=== PATIENT | male | born 1930 | race Caucasian/White ===

== ENCOUNTER 2017-04-16 12:31 | Outpatient (CLI) | payer MEDICARE | END 2017-04-16 12:32 | disposition critical access hospital (66) | LOC: EMS 12:31 | PROVIDERS: ATTEND Surgery | DX: M25.511 Pain in right shoulder (principal); W18.39XA Other fall on same level, initial encounter; Y92.511 Restaurant or cafe as the place of occurrence of the external cause | CPT/HCPCS: A0425; A0429 ==

== ENCOUNTER 2017-04-16 12:52 | Emergency (ER) | payer MEDICARE, OTHER ==
--- NOTE | 2017-04-16 13:27 | ED Physician Documentation ---
PD HPI UPPER EXT INJURY - Stated complaint Stated Complaint: FALL R SHOULDER PX - Chief complaint Chief Complaint: Ext Problem - History obtained from History obtained from: Patient - History of Present Illness Location: Right, Shoulder Type of injury: Fall (walking with cane [place] and the cane slipped, and he fell to right side onto shoulder. Pain at shoulder with any attempted ROM. Denies injury to head, neck, chest.) Where injury occurred: Street Timing - onset: Today Timing - details: Abrupt onset, Still present Improved by: Rest Worsened by: Moving, Palpating Associated symptoms: No: Weakness, Numbness, Swelling Contributing factors: No: Anticoagulated Similar symptoms before: Has not had sx before Recently seen: Not recently seen Review of Systems Constitutional: denies: Fever, Chills Nose: denies: Rhinorrhea / runny nose, Congestion Throat: denies: Sore throat Cardiac: denies: Chest pain / pressure, Palpitations Respiratory: denies: Dyspnea, Cough, Wheezing GI: denies: Nausea, Vomiting Skin: denies: Abrasion (s), Laceration (s) Neurologic: denies: Generalized weakness, Focal weakness, Numbness, Altered mental status, Headache, Head injury PD PAST MEDICAL HISTORY - Past Medical History Cardiovascular: High cholesterol Endocrine/Autoimmune: HyPOthyroidism Psych: Depression - Past Surgical History General: Bowel surgery Cardiovascular: Pacemaker - Present Medications Home Medications: Ambulatory Orders Medication Instructions Recorded Confirmed Levothyroxine Sodium [Synthroid] 25 mcg PO 04/16/17 Simvastatin 5 mg PO 04/16/17 Tramadol HCl 50 mg PO Q6H PRN #20 tablet 04/16/17 - Allergies Allergies/Adverse Reactions: Allergies Allergy/AdvReac Type Severity Reaction Status Date / Time No Known Drug Allergies Allergy Verified 04/16/17 12:57 - Social History Does the pt smoke?: No Smoking Status: Never smoker Does the pt drink ETOH?: No Does the pt have substance abuse?: No PD ED PE NORMAL - Vitals Vital signs reviewed: Yes - General General: Alert and oriented X 3, Well developed/nourished, Other (shoulder pain and exam c/w dislocation. ) - HEENT HEENT: Atraumatic, Pharynx benign, Other (dentures present upper and lower, in place. He can open mouth widely. ) - Neck Neck: Supple, no meningeal sign, No bony TTP, No adenopathy - Cardiac Cardiac: RRR, No murmur - Respiratory Respiratory: Clear bilaterally - Abdomen Abdomen: Soft, Non tender - Back Back: No CVA TTP, No spinal TTP - Derm Derm: Normal color, Warm and dry - Extremities Extremities: Other (right shoulder with findings c/w dislocation. good pulses and cap refill in wrist and fingers. ) - Neuro Neuro: No motor deficit, No sensory deficit Eye Opening: Spontaneous Motor: Obeys Commands Verbal: Oriented GCS Score: 15 - Psych Psych: Normal mood, Normal affect Results - Vitals Vitals: Oxygen O2 Source Nasal cannula - Rads (name of study) right shoulder Radiology: Prelim report reviewed (dislocation and small flakes bone c/w impaction fx.) post reduction Radiology: Prelim report reviewed (improved location) Procedures - Reduction Body part reduced: Right, Shoulder Fracture or dislocation: Dislocation Anesthesia: Conscious sedation, Dilaudid, Propofol Shoulder reduction technique: [place] / ext rotation Reduction aftercare: NV intact, Xray confirms reduction, Alignment improved, Sling, Patient tolerated well PD MEDICAL DECISION MAKING - ED course Complexity details: reviewed results, re-evaluated patient (improved after reduction. Awake and fully alert at time of discharge. ), considered differential, d/w patient Departure - Departure Disposition: 01 Home, Self Care Clinical Impression: Fall from slip, trip, or stumble Qualifiers: Encounter type: initial encounter Qualified Code(s): W01.0XXA - Fall on same level from slipping, tripping and stumbling without subsequent striking against object, initial encounter Anterior shoulder dislocation Qualifiers: Encounter type: initial encounter Laterality: right Qualified Code(s): S43.014A - Anterior dislocation of right humerus, initial encounter Glenoid fracture of shoulder Qualifiers: Encounter type: initial encounter Fracture type: closed Laterality: right Qualified Code(s): S42.141A - Displaced fracture of glenoid cavity of scapula, right shoulder, initial encounter for closed fracture Condition: Stable Record reviewed to determine appropriate education?: Yes Instructions: ED Dislocation Shoulder Redu, ED Fx Shoulder Follow-Up: Polo Suarez MD [Primary Care Provider] - Hernán Guzman MD [Provider Admit Priv/Credential] - Prescriptions: Tramadol HCl 50 mg PO Q6H PRN #20 tablet PRN Reason: Pain Comments: Your shoulder was dislocated and it did look like some small tiny chip fractures off the corner of the shoulder top. This should heal okay with gentle range of motion. However there would be some torn ligaments for to dislocate and these need to heal up as well. Follow-up with orthopedics in about a week for recheck and see how the shoulder is healing. Treated with a sling and gentle range of motion. No overhead reaching, push pull, lifting with that arm until advised otherwise. This will likely take about 4 weeks to heal with limited lifting and use. Tylenol or ibuprofen if needed for pains. Add tramadol if needed for pain. Discharge Date/Time: 04/16/17 17:33
[2017-04-16] MEDS ORDERED: KETOROLAC 60 MG/2 ML VIAL IVP STA ×2 (13:30→15:34)
[2017-04-16] MEDS ORDERED: HYDROmorphone 1 MG/ML SYRINGE IVP STA ×3 (13:30→15:34)
--- NOTE | 2017-04-16 15:30 | XRAY Report ---
EXAM: RIGHT SHOULDER RADIOGRAPHY EXAM DATE: 04/16/2017 03:14 PM. CLINICAL HISTORY: Fall . COMPARISON: None. TECHNIQUE: 3 views. FINDINGS: The humeral head is dislocated anteriorly and inferiorly in relation to the glenoid. Fracture fragmen ts are noted about the glenoid. The AC joint appears intact. IMPRESSION: Glenohumeral dislocation. Fracture fragments likely represent bony [place]. MILLER Referring Provider Line: [phone] SITE ID: [id number]
[2017-04-16] MEDS ORDERED: PROPOFOL 200 MG/20 ML VIAL IVP STA (15:34)
[2017-04-16] MEDS ORDERED: NALOXONE 0.4 MG/ML VIAL IVP STA (16:24)
--- NOTE | 2017-04-16 17:10 | XRAY Preliminary Report ---
Exam: XR SHOULDER 2 VIEW RT IMPRESSION: Relocated glenohumeral joint. Favor calcific rotator cuff tendinopathy, although small fracture fragments are difficult to entirely exclude. Mild AC joint arthrosis. Large right pleural effusion more conspicuous on the present exam. [facility] SITE ID: [id number]
--- NOTE | 2017-04-16 17:11 | XRAY Report ---
EXAM: RIGHT SHOULDER RADIOGRAPHY EXAM DATE: 04/16/2017 04:56 PM. CLINICAL HISTORY: Post reduction . COMPARISON: None. TECHNIQUE: 3 views. FINDINGS: Incorrect laterality marking. I have confirmed that it is the right shoulder not the left shoulder. Bones: No fracture or bone lesion. Calcifications are better evaluated in terms of location on this study, and are favored to represent calcific rotator cuff tendinopathy rather than fracture fragments , although there could be both. Joints: There are mild degenerative changes of the acromioclavicular joint. Soft tissues: There is a large right pleural effusion more conspicuous on this exam. IMPRESSION: Relocated glenohumeral joint. Favor calcific rotator cuff tendinopathy, although small fracture fragments are difficult to entirely exclude. Mild AC joint arthrosis. Large right pleural effusion more conspicuous on the present exam. [facility] Referring Provider Line: [phone] SITE ID: [id number]
[2017-04-16 17:21] VITALS: BP 118/95
== END 2017-04-16 17:33 | disposition home or self-care (01) ==
LOC: ED 12:52
DX: S43.014A Anterior dislocation of right humerus, initial encounter (principal); S42.141A Displaced fracture of glenoid cavity of scapula, right shoulder, initial encounter for closed fracture; W01.0XXA Fall on same level from slipping, tripping and stumbling without subsequent striking against object, initial encounter; Y93.01 Activity, walking, marching and hiking; E03.9 Hypothyroidism, unspecified; E78.00 Pure hypercholesterolemia, unspecified
CPT/HCPCS: 23650; 73030; 96374; 96375; 96376; 99284; J1170

== ENCOUNTER 2017-04-20 17:37 | Emergency (ER) | payer MEDICARE ==
--- NOTE | 2017-04-20 18:02 | ED Physician Documentation ---
PD HPI UPPER EXT INJURY - Stated complaint Stated Complaint: SWOLLEN ARM - Chief complaint Chief Complaint: Ext Problem - History obtained from History obtained from: Patient, Family - History of Present Illness Location: Other (He had a mechanical fall about 4 days ago. Seen here with a dislocated shoulder that was subsequently relocated. Over the subsequent days developed massive edema of the right upper extremity and somewhat increased pain in the shoulder. No shortness of breath.) Review of Systems Constitutional: denies: Fever, Chills Respiratory: denies: Dyspnea, Cough GI: denies: Abdominal Pain PD PAST MEDICAL HISTORY - Past Medical History Past Medical History: Yes Cardiovascular: High cholesterol Endocrine/Autoimmune: HyPOthyroidism Psych: Depression - Past Surgical History Past Surgical History: Yes General: Bowel surgery Cardiovascular: Pacemaker - Present Medications Home Medications: Ambulatory Orders Medication Instructions Recorded Confirmed Levothyroxine Sodium [Synthroid] 25 mcg PO 04/16/17 Simvastatin 5 mg PO 04/16/17 Tramadol HCl 50 mg PO Q6H PRN #20 tablet 04/16/17 Aspirin [Aspirin EC] 81 mg PO DAILY 04/20/17 - Allergies Allergies/Adverse Reactions: Allergies Allergy/AdvReac Type Severity Reaction Status Date / Time No Known Drug Allergies Allergy Verified 04/20/17 17:52 - Social History Does the pt smoke?: No Smoking Status: Never smoker Does the pt drink ETOH?: No Does the pt have substance abuse?: No - Immunizations Immunizations are current?: Yes PD ED PE NORMAL - Vitals Vital signs reviewed: Yes - General General: Alert and oriented X 3, No acute distress - HEENT HEENT: EOMI - Neck Neck: Supple, no meningeal sign, No bony TTP - Cardiac Cardiac: RRR, No murmur - Respiratory Respiratory: No respiratory distress, Other (Nonlabored, diminished at B bases) - Abdomen Abdomen: Non tender - Extremities Extremities: Other (Right shoulder is tender, held in a neutral position but basically nonmobile. He has massive ecchymosis and edema of the right upper extremity and also ecchymosis of the right upper lateral chest wall, but the remainder of the upper extremity is nontender with good range of motion and the ribs are nontender. ) - Neuro Neuro: Alert and oriented X 3, Normal speech - Psych Psych: Normal mood, Normal affect Results - Vitals Vitals: Vital Signs - 24 hr 04/20/17 04/20/17 17:50 22:55 Temperature 36.6 C 36.2 C L Heart Rate 84 125 H Respiratory 16 20 Rate Blood Pressure 130/61 132/64 H O2 Saturation 95 95 Oxygen O2 Source Room air - Labs Labs: Laboratory Tests 04/20/17 04/20/17 04/20/17 20:12 20:12 20:12 WBC 5.6 RBC 3.39 L Hgb 8.4 L Hct 28.2 L MCV 83.2 MCH 24.7 L MCHC 29.6 L RDW 18.1 H Plt Count 166 MPV 7.3 L Neut # 3.4 Lymph # 1.5 [place] # 0.6 Eos # 0.1 Baso # 0.0 Absolute Nucleated RBC 0.01 Nucleated RBC % 0.1 PT 12.6 INR 1.1 Sodium 134 L Potassium 3.9 Chloride 104 Carbon Dioxide 22 Anion Gap 8.0 BUN 37 H Creatinine 1.6 H Estimated GFR (MDRD) 41 L Glucose 98 Calcium 9.4 Total Bilirubin 0.8 AST 40 ALT 19 Alkaline Phosphatase 54 Total Protein 7.4 Albumin 3.2 Globulin 4.2 Albumin/Globulin Ratio 0.8 L Lipase 65 H - Rads (name of study) R shoulder XR Radiology: EMP read contemporaneously (Periarticular ossifications around the proximal right humerus, could be avulsion fragments versus rotator cuff tendinopathy or capsular calcifications.) 2v chest XR Radiology: EMP read contemporaneously (Bilateral pleural effusions with right middle lobe and bilateral lower lobe consolidation, could be atelectasis or pneumonia.) RUE Sono Radiology: Prelim report reviewed (no DVT) CT Chest Radiology: Discussed with rads (Bilateral pleural effusions without acute rib fracture. The density of it does not look like acute blood but he does look like he has an axillary hematoma on this study.) PD MEDICAL DECISION MAKING - ED course ED course: 87-year-old gentleman status post mechanical fall a few days ago with dislocation of the shoulder now massive edema of the arm. DVT is unlikely, but ultrasound done and negative. X-ray basically unchanged, noted the x-ray read it from the other day mentioned a pleural effusion and a formal chest x-ray was done showing bilateral pleural effusions a pretty significant size. Patient really has no pulmonary complaints, no cough, no shortness of breath. The differential diagnosis for the pleural effusions could be hemothorax from the trauma versus a medical cause and CT was done to help piece this together. The CT was as shown with an axillary hematoma and bilateral probably medical pleural effusions, as opposed to traumatic. Discussed case with Ana Clarke, as he will be seeing Polo Suarez in follow-up tomorrow. Departure - Departure Disposition: 01 Home, Self Care Clinical Impression: Pleural effusion Fall from slip, trip, or stumble Qualifiers: Encounter type: initial encounter Qualified Code(s): W01.0XXA - Fall on same level from slipping, tripping and stumbling without subsequent striking against object, initial encounter Glenoid fracture of shoulder Qualifiers: Encounter type: initial encounter Fracture type: closed Axillary hematoma Qualifiers: Encounter type: sequela Laterality: right Qualified Code(s): S40.021S - Contusion of right upper arm, sequela Anemia Qualifiers: Anemia type: other cause Other causes of anemia: acute posthemorrhagic Qualified Code(s): D62 - Acute posthemorrhagic anemia Condition: Good Record reviewed to determine appropriate education?: Yes Comments: Follow-up with your new physician tomorrow. I suspect he will want to order repeat labs to check your blood counts and other tests to figure out why you have fluid on your lungs. Return if worse. Discharge Date/Time: 04/20/17 23:12
--- NOTE | 2017-04-20 19:20 | XRAY Report ---
EXAM: CHEST RADIOGRAPHY EXAM DATE: 04/20/2017 07:07 PM. CLINICAL HISTORY: Pleural effusion on shoulder x-ray. COMPARISON: None. TECHNIQUE: 2 views. FINDINGS: Lungs/Pleura: There is airspace opacity in the right middle lobe and right lower lobe. There is conso lidation along the inferior aspect of the right minor fissure. There is blunting of the left costophr enic angle. Mediastinum: Cardiac silhouette is obscured. There is a pacemaker with leads overlying right atrium a nd right ventricle. Other: None. IMPRESSION: 1. Bilateral pleural effusions with right middle lobe and bilateral lower lobe consolidation. There i s a component of atelectasis, but pneumonia and/or basilar edema are also in differential diagnosis. [facility] Referring Provider Line: [phone] SITE ID: [id number]
--- NOTE | 2017-04-20 19:20 | XRAY Preliminary Report ---
Exam: XR CHEST 2 VIEW X-RAY IMPRESSION: 1. Bilateral pleural effusions with right middle lobe and bilateral lower lobe consolidation. There i s a component of atelectasis, but pneumonia and/or basilar edema are also in differential diagnosis. [facility] SITE ID: [id number]
--- NOTE | 2017-04-20 19:25 | XRAY Report ---
EXAM: RIGHT SHOULDER RADIOGRAPHY EXAM DATE: 04/20/2017 07:08 PM. CLINICAL HISTORY: Worse shoulder pain. COMPARISON: 04/16/2017. TECHNIQUE: 3 views. FINDINGS: Bones: Negative for an new acute fracture. Joints: No subluxation or dislocation. Soft tissues: There are curvilinear calcifications in the subacromial space. These are located more m edially than on previous examination. There is a punctate calcification lateral to the humeral metaph ysis. IMPRESSION: 1. Periarticular ossifications around proximal right humerus. Differential including calcific tendino vashti of rotator cuff versus capsular calcifications and avulsion fracture fragments from the greater tuberosity. [facility] Referring Provider Line: [phone] SITE ID: [id number]
--- NOTE | 2017-04-20 19:25 | XRAY Preliminary Report ---
Exam: XR SHOULDER 3 VIEW RT IMPRESSION: 1. Periarticular ossifications around proximal right humerus. Differential including calcific tendino vashti of rotator cuff versus capsular calcifications and avulsion fracture fragments from the greater tuberosity. [facility] SITE ID: [id number]
--- NOTE | 2017-04-20 20:14 | Ultrasound Preliminary Report ---
Exam: US DUPLEX EXT VEINS RIGHT IMPRESSION: No evidence for deep vein thrombosis. [facility] SITE ID: [id number]
--- NOTE | 2017-04-20 20:15 | Ultrasound Report ---
EXAM: RIGHT UPPER EXTREMITY VENOUS ULTRASOUND EXAM DATE: 04/20/2017 08:00 PM. CLINICAL HISTORY: RUE swelling. COMPARISON: None. TECHNIQUE: Real-time sonographic vascular imaging was performed by the chemical processor through the upper extremity utilizing both color-flow and Doppler spectral analysis. Multiple marketing sales representative static ke ges were saved for review. FINDINGS: Internal Jugular Vein (IJV): Normal. Subclavian Vein (SCV): Normal. Axillary Vein : Normal. Cephalic Vein (superficial vein): Normal. Basilic Vein (superficial vein): Normal. Brachial Vein: Normal. Contralateral Side: Subclavian Vein: Normal. Other: None. IMPRESSION: No evidence for deep vein thrombosis. [facility] Referring Provider Line: [phone] SITE ID: [id number]
[2017-04-20] MEDS ORDERED: IOPAMIDOL-300 100 ML VIAL ONE (20:16)
[2017-04-20 20:20] LABS: BASOPHILS % (AUTO) 0.6 %; EOSINOPHILS # (AUTO) 0.1 10^3/uL (0.0-0.7); EOSINOPHILS % (AUTO) 2.1 %; HGB - HEMOGLOBIN 8.4 g/dL (14.0-18.0); LYMPHOCYTES # (AUTO) 1.5 10^3/uL (1.5-3.5); LYMPHOCYTES % (AUTO) 26.1 %; MEAN CORPUSCULAR HEMOGLOBIN 24.7 pg (27.0-31.0); MEAN CORPUSCULAR HGB CONC 29.6 g/dL (32.0-36.0); MEAN CORPUSCULAR VOLUME 83.2 fL (80.0-94.0); MEAN PLATELET VOLUME 7.3 fL (7.4-11.4); MONOCYTES # (AUTO) 0.6 10^3/uL (0.0-1.0); MONOCYTES % (AUTO) 10.4 %; NEUTROPHILS # (AUTO) 3.4 10^3/uL (1.5-6.6); NEUTROPHILS % (AUTO) 60.8 %; PLT - PLATELET COUNT 166 10^3/uL (130-450); RED BLOOD COUNT 3.39 10^6/uL (4.70-6.10); RED CELL DISTRIBUTION WIDTH 18.1 % (12.0-15.0); WHITE BLOOD COUNT 5.6 x10^3/uL (4.8-10.8)
[2017-04-20 20:28] LABS: ALBUMIN 3.2 g/dL (3.2-5.5); ALBUMIN/GLOBULIN RATIO 0.8 (1.0-2.2); BILIRUBIN,TOTAL 0.8 mg/dL (0.2-1.0); CALCIUM 9.4 mg/dL (8.5-10.3); CREATININE 1.6 mg/dL (0.6-1.2); TOTAL PROTEIN 7.4 g/dL (6.7-8.2)
[2017-04-20 20:36] LABS: INR 1.1 (0.8-1.2); PT - PROTHROMBIN TIME 12.6 secs (9.9-12.6)
--- NOTE | 2017-04-20 22:51 | CT Report ---
EXAM: CT CHEST EXAM DATE: 04/20/2017 09:50 PM. CLINICAL HISTORY: Pleural effusion, possible rib fracture COMPARISONS: None. TECHNIQUE: Routine helical CT imaging was performed through the chest. IV contrast: None. Reconstruct ions: Coronal and sagittal. In accordance with CT protocol optimization, one or more of the following dose reduction techniques w ere utilized for this exam: automated exposure control, adjustment of mA and/or KV based on patient s ize, or use of iterative reconstructive technique. FINDINGS: Moderate right and small left pleural effusions with Hounsfield units of 10 not consistent with hemot horax. Moderate bilateral lower lobe lung consolidations right greater than left, suspect passive ate lectasis. Pneumonia not excluded. Small amount of loculated pleural effusion seen in the right major fissure and anteriorly at the right base. Breathing motion artifact limited. Mediastinum: Moderate atherosclerotic calcification of the thoracic aorta. No aneurysm. Cardiomegaly. Coronary artery calcification. Pacemaker. Subcarinal lymphadenopathy measuring 1.3 cm Upper abdomen: Status post cholecystectomy. There appear to be bilateral proteinaceous renal cysts. L eft upper pole mass with small calcifications, could be a complex renal cysts but not fully character ized. Another low-density mass at the posterior right kidney not fully evaluated, could be a renal cy st with a septation, measures 1.6 cm. Renal ultrasound could be obtained to further evaluate. Solid r enal mass not excluded. There appear to be multiple hematomas with contusions at the right axilla, largest suspected hematoma measuring 3.7 x 2.5 cm. Patient had a right shoulder dislocation on Monday. No dislocation seen. Bon e fragments are seen superior to the humeral head, concerning for fracture fragments from the prior d islocation. See the shoulder x-ray report from the same date. Right-sided abdominal wall anasarca and contusions here are not excluded. No acute rib fractures are seen. IMPRESSION: 1. There appear to be multiple hematomas with contusions at the right axilla, largest suspected hemat vandana measuring 3.7 x 2.5 cm. Patient had a right shoulder dislocation on Monday. No dislocation seen. Bone fragments are seen superior to the humeral head, concerning for fracture fragments from the prio r dislocation. See the shoulder x-ray report from the same date. 2. Moderate right and small left pleural effusions with Hounsfield units of 10 not consistent with he mothorax. Moderate bilateral lower lobe lung consolidations right greater than left, suspect passive atelectasis. Pneumonia not excluded. Small amount of loculated pleural effusion seen in the right [place] or fissure and anteriorly at the right base. 3. Subcarinal lymphadenopathy, could be reactive but metastasis not excluded. Follow-up recommended. 4. Routine renal ultrasound recommended for the renal findings. See above. 5. Otherwise, as above. No acute rib fractures are seen. [facility] The above findings were discussed with Dr. Snowden by Dr. Marielle Kong at 22:38 hrs on 04/20/17. Referring Provider Line: [phone] SITE ID: [id number]
[2017-04-20 22:57] VITALS: BP 132/64
== END 2017-04-20 23:12 | disposition home or self-care (01) ==
LOC: ED 17:37
DX: S42.141A Displaced fracture of glenoid cavity of scapula, right shoulder, initial encounter for closed fracture (principal); S40.021S Contusion of right upper arm, sequela; W18.39XA Other fall on same level, initial encounter; J90 Pleural effusion, not elsewhere classified; D62 Acute posthemorrhagic anemia; E78.00 Pure hypercholesterolemia, unspecified; E03.9 Hypothyroidism, unspecified; Z79.82 Long term (current) use of aspirin
CPT/HCPCS: 36415; 71046; 71250; 80053; 83690; 85025; 85610; 99283; 99284

== ENCOUNTER 2017-04-21 15:25 | Outpatient (CLI) | payer MEDICARE | END 2017-04-21 15:26 | disposition home or self-care (01) | LOC: LAB.F 15:25 | PROVIDERS: ATTEND Family Medicine | DX: D64.9 Anemia, unspecified (principal); I10 Essential (primary) hypertension; M10.9 Gout, unspecified; E03.9 Hypothyroidism, unspecified; E78.5 Hyperlipidemia, unspecified; J91.8 Pleural effusion in other conditions classified elsewhere | CPT/HCPCS: 36415; 82607; 82728; 82746; 85025; 85044 ==

== ENCOUNTER 2017-04-23 08:00 | Outpatient (CLI) | payer MEDICARE ==
[2017-04-23 13:59] LABS: BASOPHILS % (AUTO) 0.8 %; EOSINOPHILS # (AUTO) 0.1 10^3/uL (0.0-0.7); EOSINOPHILS % (AUTO) 2.3 %; HGB - HEMOGLOBIN 8.1 g/dL (14.0-18.0); LYMPHOCYTES # (AUTO) 1.4 10^3/uL (1.5-3.5); LYMPHOCYTES % (AUTO) 26.4 %; MEAN CORPUSCULAR HEMOGLOBIN 25.7 pg (27.0-31.0); MEAN CORPUSCULAR HGB CONC 30.8 g/dL (32.0-36.0); MEAN CORPUSCULAR VOLUME 83.5 fL (80.0-94.0); MEAN PLATELET VOLUME 7.1 fL (7.4-11.4); MEAN RETIC VALUE 121.4; MONOCYTES # (AUTO) 0.7 10^3/uL (0.0-1.0); MONOCYTES % (AUTO) 12.6 %; NEUTROPHILS % (AUTO) 57.9 %; PLT - PLATELET COUNT 159 10^3/uL (130-450); RED BLOOD COUNT 3.13 10^6/uL (4.70-6.10); RED CELL DISTRIBUTION WIDTH 18.2 % (12.0-15.0); WHITE BLOOD COUNT 5.3 x10^3/uL (4.8-10.8)
[2017-04-23 14:33] LABS: FERRITIN 38.6 ng/mL (23.9-336.2)
[2017-04-23 15:25] LABS: FOLATE > 49.60 ng/mL (5.90 - >24.8)
== END 2017-04-23 08:01 | disposition home or self-care (01) ==
LOC: LAB.R 08:00
PROVIDERS: ATTEND Family Medicine
DX: D64.9 Anemia, unspecified (principal); I10 Essential (primary) hypertension; M10.9 Gout, unspecified; E03.9 Hypothyroidism, unspecified; E78.5 Hyperlipidemia, unspecified; J91.8 Pleural effusion in other conditions classified elsewhere
CPT/HCPCS: 36415; 82607; 82728; 82746; 85025; 85044

== ENCOUNTER 2017-04-23 13:40 | Outpatient (CLI) | payer MEDICARE | END 2017-04-23 13:41 | disposition home or self-care (01) | LOC: DI 13:40 | PROVIDERS: ATTEND Family Medicine | DX: J90 Pleural effusion, not elsewhere classified (principal); D64.9 Anemia, unspecified; I10 Essential (primary) hypertension; M10.9 Gout, unspecified; E03.9 Hypothyroidism, unspecified; E78.5 Hyperlipidemia, unspecified; I08.1 Rheumatic disorders of both mitral and tricuspid valves | CPT/HCPCS: 36415; 82607; 82728; 82746; 85025; 85044; 93306 ==

== ENCOUNTER 2017-05-03 13:36 | Outpatient (CLI) | payer MEDICARE ==
[2017-05-03 13:52] LABS: BASOPHILS # (AUTO) 0.1 10^3/uL (0.0-0.1); EOSINOPHILS # (AUTO) 0.1 10^3/uL (0.0-0.7); EOSINOPHILS % (AUTO) 1.9 %; HGB - HEMOGLOBIN 8.2 g/dL (14.0-18.0); LYMPHOCYTES # (AUTO) 1.4 10^3/uL (1.5-3.5); LYMPHOCYTES % (AUTO) 27.2 %; MEAN CORPUSCULAR HEMOGLOBIN 25.2 pg (27.0-31.0); MEAN CORPUSCULAR HGB CONC 30.3 g/dL (32.0-36.0); MEAN CORPUSCULAR VOLUME 83.2 fL (80.0-94.0); MEAN PLATELET VOLUME 7.1 fL (7.4-11.4); MONOCYTES # (AUTO) 0.7 10^3/uL (0.0-1.0); MONOCYTES % (AUTO) 13.4 %; NEUTROPHILS # (AUTO) 2.9 10^3/uL (1.5-6.6); NEUTROPHILS % (AUTO) 56.5 %; PLT - PLATELET COUNT 165 10^3/uL (130-450); RED BLOOD COUNT 3.24 10^6/uL (4.70-6.10); RED CELL DISTRIBUTION WIDTH 19.1 % (12.0-15.0); WHITE BLOOD COUNT 5.1 x10^3/uL (4.8-10.8)
== END 2017-05-03 13:37 | disposition home or self-care (01) ==
LOC: LAB 13:36
PROVIDERS: ATTEND Family Medicine
DX: D64.9 Anemia, unspecified (principal); E03.9 Hypothyroidism, unspecified
CPT/HCPCS: 36415; 84443; 85025

== ENCOUNTER 2017-05-25 13:04 | Outpatient (CLI) | payer OTHER ==
--- NOTE | 2017-05-25 16:07 | XRAY Report ---
TWO VIEW CHEST: 05/25/2017 CLINICAL INDICATION: Pleural effusion. COMPARISON: 04/20/2017, CT 04/20/2017. FINDINGS: Frontal and lateral views of the chest demonstrate stable bilateral effusions and basilar airspace disease. Left subclavian pacemaker is stable. There has been no significant interval change. IMPRESSION: STABLE BILATERAL EFFUSIONS AND BASILAR AIRSPACE DISEASE. TD: 05/25/2017 16:06
== END 2017-05-25 13:05 | disposition home or self-care (01) ==
LOC: DI 13:04
PROVIDERS: ATTEND Family Medicine
DX: J90 Pleural effusion, not elsewhere classified (principal); J98.4 Other disorders of lung
CPT/HCPCS: 71046

== ENCOUNTER 2017-06-05 15:12 | Inpatient (IN) | payer MEDICARE, OTHER ==
--- NOTE | 2017-06-05 16:09 | XRAY Report ---
EXAM: CHEST RADIOGRAPHY EXAM DATE: 06/05/2017 04:01 PM. CLINICAL HISTORY: Shortness of breath for 2 days. COMPARISON: 05/25/2017. TECHNIQUE: 1 view. FINDINGS: Lungs/Pleura: Bilateral effusions, right worse than left, with overlying atelectasis/infiltrate. Uppe r lungs clear. No pneumothorax. Mediastinum: Large heart with venous congestion. Other: Stable dual lead left pacemaker. IMPRESSION: 1. Persistent cardiomegaly, venous congestion, and bilateral effusions, right greater than left, with associated atelectasis/infiltrate. 2. Stable dual lead left pacemaker. [facility] Referring Provider Line: [phone] SITE ID: [id number]
[2017-06-05 16:16] LABS: BASOPHILS % (AUTO) 0.5 %; EOSINOPHILS % (AUTO) 0.1 %; HGB - HEMOGLOBIN 7.6 g/dL (14.0-18.0); LYMPHOCYTES # (AUTO) 1.5 10^3/uL (1.5-3.5); LYMPHOCYTES % (AUTO) 22.6 %; MEAN CORPUSCULAR HEMOGLOBIN 26.1 pg (27.0-31.0); MEAN CORPUSCULAR HGB CONC 30.1 g/dL (32.0-36.0); MEAN PLATELET VOLUME 8.3 fL (7.4-11.4); MONOCYTES # (AUTO) 0.8 10^3/uL (0.0-1.0); NEUTROPHILS # (AUTO) 4.3 10^3/uL (1.5-6.6); NEUTROPHILS % (AUTO) 64.8 %; PLT - PLATELET COUNT 184 10^3/uL (130-450); RED BLOOD COUNT 2.92 10^6/uL (4.70-6.10); RED CELL DISTRIBUTION WIDTH 22.5 % (12.0-15.0); WHITE BLOOD COUNT 6.6 x10^3/uL (4.8-10.8)
[2017-06-05 16:19] LABS: CALCIUM 9.1 mg/dL (8.5-10.3); CREATININE 1.4 mg/dL (0.6-1.2)
[2017-06-05 16:40] LABS: PLATELET MORPHOLOGY 1+ GIANT PLATELETS (NORMAL)
--- NOTE | 2017-06-05 16:40 | ED Physician Documentation ---
History of Present Illness - Stated complaint Stated Complaint: SOA,LOW OXYGEN LEVEL - Chief complaint Chief Complaint: Resp - Additonal information Additional information: hx from pt 87 male fell early May and dislocated his shoulder and develoepd an axillary hematoma seen in ED and found to have effusons on CXR so CT was done which showed no rib fx and no pneumo and effusion was felt not to be blood pt advised to fup PMD which he did and he had another CXR which was essentially unchanged he has been going to PT and they noted last week and again tday that he has worsening hypoxia so was sent to ED where he arrived fatigued with an O2 sat of 79% he denies fever cough CP AP family states he has been bruising easily and has a large leg hemnaotma despite no fall no on blood thinners plt count was fine Review of Systems Constitutional: denies: Fever, Chills Cardiac: denies: Chest pain / pressure Respiratory: reports: Dyspnea. denies: Cough GI: denies: Abdominal Pain, Nausea, Vomiting Skin: reports: Other (ecchymosis) Endocrine: denies: Easy bruising / bleeding Immunocompromised: denies: Immunocompromised PD PAST MEDICAL HISTORY - Past Medical History Cardiovascular: High cholesterol Endocrine/Autoimmune: HyPOthyroidism Psych: Depression - Past Surgical History Past Surgical History: Yes General: Bowel surgery Cardiovascular: Pacemaker - Present Medications Home Medications: Ambulatory Orders Medication Instructions Recorded Confirmed Levothyroxine Sodium [Synthroid] 25 mcg PO 04/16/17 Simvastatin 5 mg PO 04/16/17 Aspirin [Aspirin EC] 81 mg PO DAILY 04/20/17 Furosemide [Furosemide] 20 mg PO DAILY 06/05/17 06/05/17 - Allergies Allergies/Adverse Reactions: Allergies Allergy/AdvReac Type Severity Reaction Status Date / Time No Known Drug Allergies Allergy Verified 04/20/17 17:52 - Social History Does the pt smoke?: No Smoking Status: Never smoker Does the pt drink ETOH?: No Does the pt have substance abuse?: No - Immunizations Immunizations are current?: Yes PD ED PE NORMAL - Vitals Vital signs reviewed: Yes - General General: Other (pale) - Cardiac Cardiac: RRR - Respiratory Respiratory: Other (dec nacho) - Abdomen Abdomen: Soft, Non tender - Neuro Neuro: Alert and oriented X 3 Results - Vitals Vitals: Vital Signs - 24 hr 06/05/17 06/05/17 15:17 17:13 Temperature 36.4 C L Heart Rate 50 L 67 Respiratory 20 16 Rate Blood Pressure 145/72 H O2 Saturation 79 L 100 Oxygen O2 Source Room air Oxygen Flow Rate 2 - EKG (time done) 1535 Ischemia: Other (underlying a fib and paced) - Labs Labs: Laboratory Tests 06/05/17 06/05/17 06/05/17 15:49 15:49 15:49 WBC 6.6 RBC 2.92 L Hgb 7.6 L Hct 25.4 L MCV 87.0 MCH 26.1 L MCHC 30.1 L RDW 22.5 H Plt Count 184 MPV 8.3 Neut # 4.3 Lymph # 1.5 Hooker # 0.8 Eos # 0.0 Baso # 0.0 Absolute Nucleated RBC 0.00 Nucleated RBC % 0.0 Manual Slide Review Indicated Platelet Estimate NORMAL (130-450,000) Platelet Morphology 1+ GIANT PLATELETS RBC Morph Micro Appear 2+ HYPOCHROMASIA Sodium 133 L Potassium 4.0 Chloride 101 Carbon Dioxide 23 Anion Gap 9.0 BUN 23 H Creatinine 1.4 H Estimated GFR (MDRD) 48 L Glucose 124 H Calcium 9.1 Troponin I < 0.04 B-Natriuretic Peptide Blood Type Blood Type Recheck Antibody Screen 06/05/17 06/05/17 06/05/17 15:49 15:49 16:55 WBC RBC Hgb Hct MCV MCH MCHC RDW Plt Count MPV Neut # Lymph # Hooker # Eos # Baso # Absolute Nucleated RBC Nucleated RBC % Manual Slide Review Platelet Estimate Platelet Morphology RBC Morph Micro Appear Sodium Potassium Chloride Carbon Dioxide Anion Gap BUN Creatinine Estimated GFR (MDRD) Glucose Calcium Troponin I B-Natriuretic Peptide 297 H Blood Type AB POSITIVE Blood Type Recheck AB POSITIVE Antibody Screen NEGATIVE - Rads (name of study) CXR Radiology: See rad report (persistent cardiomegaly, venous congestion, nacho effusions R > L, associated atelectasis or infiltrate, PPM) CTA Radiology: See rad report (no PE though limited by resp artifact, no dissection no infiltrate, large effusions) LLE duplex Radiology: See rad report (neg) PD MEDICAL DECISION MAKING - ED course ED course: 87 male a fib and PPM but no blood thinners incidentally noted to have pleural effusions after fall ansd shoulder dislocation CXR unchanged but profoundly hypoxic now aslo swollen bruised L thigh consider PE - duplex and CTA ordered also will need echo and perhaps diuresis and noted to be anemic worse than before - consider blood loss into hemaotma also checked stool in ostomy which is brown but heme occult + so GI blled too spoke to hospitalist who will admit Departure - Departure Disposition: 66 [facility] DC/Xfer Clinical Impression: Hypoxia, Pleural effusion, Hematoma, Renal insufficiency GI bleed Qualifiers: GI bleed type/associated pathology: unspecified gastrointestinal hemorrhage type Qualified Code(s): K92.2 - Gastrointestinal hemorrhage, unspecified Anemia Qualifiers: Anemia type: unspecified type Qualified Code(s): D64.9 - Anemia, unspecified Condition: Fair
[2017-06-05 16:41] LABS: PLATELET ESTIMATE, MANUAL NORMAL (130-450,000) (NORMAL)
[2017-06-05] MEDS ORDERED: IOPAMIDOL-300 100 ML VIAL ONE (17:08)
[2017-06-05] MEDS ORDERED: SODIUM CHLORIDE FLUSH 0.9% 10 ML SYRINGE IVP PRN (17:19)
--- NOTE | 2017-06-05 17:21 | HISTORY & PHYSICAL EXAMINATION ---
Chief Complaint - Chief Complaint Chief Complaint: SOB History of Present Illness - Admitted From Admitted From:: ED - History Obtained From Records Reviewed: yes History obtained from: chart review, patient Exam Limitations: Patient's profound [place]. - History of Present Illness HPI Comment/Other: Long Nuno is an ill appearing, slightly jaundice 87-year old male with an extensive past medical history including colon cancer with bowel resection, status post ostomy, abdominal hernia, status post cardiac pacemaker, hypertension, hyperlipidemia, depression, hypothyroidism, recent right shoulder injury, anemia, and chronic hearing loss. The patient's Evelyn is present and helped with the admission as the patient is profoundly [place] and hypoxic. The patient came to the ED today after attending a physical therapy session for his recent shoulder injury in which he dislocated it. The therapist found him to be easily winded, checked an oxygen saturation and the patient was found to be "in the 70's" confirmed by both the patient's Evelyn and ED staff. Once in the ED labs showed a worsening anemia with a hemoglobin of 7.6 and Hct of 25.4, mild hyponatremia of 133, elevated BUN of 23 , elevated creatinine of 1.4, a decreased GFR of 48, and a negative troponin. Imaging revealed a worsening cardiomegaly, bilateral pleural effusions associated atelectasis verses infiltrates. 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 Now status post pacemaker. - Past Surgical History General: reports: Bowel surgery, Other (status post ostomy in Right abdominal quadrant.) Ortho: reports: Knee replacement (bilateral-total) Cardiovascular: reports: Pacemaker - Family & Social History Family History: Mother: , Diabetes, Type 2, Father: , Cancer, Sister: , Diabetes, Type 2, Obesity Living arrangement: At home Living Situation: With spouse/s.o., With family - Substance History Use: Uses substance without health or social issues: NONE Abuse: Recurrent use of substance despite neg consequences: NONE Dependence: Experiences withdrawal or developed tolerances: NONE - POLST Patient has POLST: No POLST Status: Full Code Meds/Allgy - Home Medications Home Medications: Ambulatory Orders Medication Instructions Recorded Confirmed Levothyroxine Sodium [Synthroid] 25 mcg PO 04/16/17 Simvastatin 5 mg PO 04/16/17 Aspirin [Aspirin EC] 81 mg PO DAILY 04/20/17 Furosemide [Furosemide] 20 mg PO DAILY 06/05/17 06/05/17 - Allergies Allergies/Adverse Reactions: Allergies Allergy/AdvReac Type Severity Reaction Status Date / Time No Known Drug Allergies Allergy Verified 04/20/17 17:52 Review of Systems - Constitutional Constitutional: reports: Fatigue, Weakness - Eyes Eyes: reports: Vision loss, Corrective lenses - Ears, Nose & Throat Ears, Nose & Throat: reports: Hearing loss, Hearing aids, Dentures - Cardiovascular Cariovascular: reports: Exertional dyspnea, Decr. exercise tolerance, Orthopnea - Respiratory Respiratory: reports: Cough, Orthopnea, SOB at rest, SOB with exertion - Gastrointestinal Gastrointestinal: reports: Abdominal distention, Reflux/heartburn - Genitourinary Genitourinary: reports: Dysuria, Frequency, Urgency, Incontinence, Nocturia - Musculoskeletal Musculoskeletal: reports: Muscle aches (right should was dislocated on 05/07/17, some reduced ROM. 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.), Stiffness, Joint swelling - Integumentary Integumentary: reports: Dryness, Pigment changes, Other (mild whole body jaundice) - Neurological Neurological: reports: General weakness, Focal weakness, Memory problems, Pre- existing deficit, Abnormal gait (decreased ambulation and now uses a walker.), Incoordination - Psychiatric Psychiatric: reports: Depression - Hematologic/Lymphatic Hematologic/Lymphatic: reports: Anemia, Bruising - All Other Systems All Other Systems: reports: Reviewed and negative Exam - Vital Signs Reviewed Vital Signs: Yes Vital Signs: Vital Signs x48h Temp Pulse Resp BP Pulse Ox 06/05/17 17:13 67 16 145/72 H 100 06/05/17 15:17 36.4 C L 50 L 20 79 L - Physical Exam General Appearance: positive: No acute distress, Alert Eyes Bilateral: positive: Normal inspection, Conjunctivae nml (despite slight skin jaundice, patient has no yellowing of sclera.) ENT: positive: ENT inspection nml, Pharyngeal erythema, Dry mucous membranes, Other (dentures in place.) Neck: positive: Nml inspection, Thyroid nml, No JVD, Stiff neck Respiratory: positive: Chest non-tender, Wheezes, Rhonchi, Other (absent lung sound in low bases.) Cardiovascular: positive: Regular rate & rhythm, Systolic murmur, Decreased pulse(s) Peripheral Pulses: positive: 1+ Abdomen: positive: Non-tender, Hepatomegaly, Abnml bowel sounds (hyper active), Other (ostomy device with surrounding abdominal hernia.) Back: positive: Nml inspection Skin: positive: No rash, Warm, Dry, Pallor, Other (mild whole body jaundice, bruising on left flank and left inner leg from just below the inner knee to inner groin.) Extremities: positive: Non-tender, Pedal edema, Joint swelling Neurologic/Psychiatric: positive: Motor nml, Weakness, Sensory loss, Slurred/ abnml speech, Depressed mood/affect, Other (impaired awareness and comprehension related to profound hearing impairment.) Reflexes: Bicep (R): 2+ (strong and equal BUE, BLE), Bicep (L): 2+, Ankle (R): 2 +, Ankle (L): 2+ Conclusion/Plan - Problem List (1) Hypoxia Conclusion/Plan: The patient has been attending physical therapy out patient since his right shoulder injury on 05/07/17 and was noted to be winded. Oxygen saturations were noted to be in the 70's per the patient's Evelyn and ED reports. The patient has required oxygen since that time. This is likely a combination of the patient being anemic, having ongoing pleural effusions, and new cardiomegaly seen by imaging. Plan: Continue oxygen supplementation. (2) Anemia Conclusion/Plan: The patient appears slightly jaundice and pale upon exam. The patient had a declining hemoglobin of ~7 upon admission. He was seen in the ED on 05/07/17 for his right shoulder injury and at that time his hemoglobin was in the 8 range. The patient's , Evelyn explains that she has doubled his iron supplement lately. Plan: General surgery, Dr. Hunter Cifuentes will see patient in AM to evaluate this. Qualifiers: Anemia type: unspecified type Qualified Code(s): D64.9 - Anemia, unspecified (3) Pacemaker Conclusion/Plan: The patient has an established pacemaker and is located in his left upper chest. Plan: Watch on telemetry overnight. (4) Hypothyroidism Conclusion/Plan: The patient has a long standing history of this and is prescribed levothyroxine at home, a low dose of 25 mcg. It is unknown what his latest TSH was. Plan: Continue home meds and check a TSH in the AM. (5) Personal history of colon cancer Conclusion/Plan: The patient has a known history of colon cancer, and is now status post bowel resection and has an established right abdominal quadrant ostomy with light brown/green stool. The ED called after taking the admission to alert us of a + occult that was taken from his ostomy appliance. Evelyn, the patient's notes that the ostomy typically has small amounts of blood surrounding the device and she thinks this has caused the positive test. Plan: Will consult general surgery in regards to a possible GI bleed verses liver involvement as the patient is slightly jaundice. (8) Elevated TSH Conclusion/Plan: A Free T3 and T4 are ordered for the AM due to the TSH value being greater than 12 upon admission. Plan: Monitor vital signs and await labs. - Lab Results Lab results reviewed: Yes Fish Bones: 06/05/17 20:30 06/05/17 20:30 - Diagnostic Imaging Results Diagnostic Imaging Results: positive: Prelim report reviewed, Final report reviewed Diagnostic Imaging Results Comments: EXAM: CHEST RADIOGRAPHY EXAM DATE: 06/05/2017 04:01 PM. CLINICAL HISTORY: Shortness of breath for 2 days. COMPARISON: 05/25/2017. TECHNIQUE: 1 view. FINDINGS: Lungs/Pleura: Bilateral effusions, right worse than left, with overlying atelectasis/infiltrate. Upper lungs clear. No pneumothorax. Mediastinum: Large heart with venous congestion. Other: Stable dual lead left pacemaker. IMPRESSION: 1. Persistent cardiomegaly, venous congestion, and bilateral effusions, right greater than left, with associated atelectasis/infiltrate. 2. Stable dual lead left pacemaker. - EKG Results EKG Interpreted Independently: Yes Core Measures - Anticipated LOS I expect patient to be DC'd or transferred within 96 hours.: Yes - DVT/VTE - Prophylaxis VTE/DVT Device ordered at admit?: Yes VTE/DVT Prophylaxis med ordered at admit?: No Not Ordered - Medical Reason: Contraindicated - Stroke - Rehab Assessment Rehab services assessment to be ordered?: Yes - AMI - Statin at Admit Aspirin Prescribed on Admit: No Not Ordered - Medical Reason: Contraindicated
[2017-06-05] MEDS: IOPAMIDOL-300 100 ML VIAL IVP ONE (17:29)
--- NOTE | 2017-06-05 17:48 | CT Report ---
EXAM: CT ANGIOGRAM CHEST EXAM DATE: 06/05/2017 05:29 PM. CLINICAL HISTORY: Lower extremity swelling COMPARISON: None. TECHNIQUE: Routine helical imaging was performed through the chest in the pulmonary arterial phase. I V Contrast: 80 cc Isovue 300. Reconstructions: Coronal 3-D MIP reconstructions.Sagittal and coronal. In accordance with CT protocol optimization, one or more of the following dose reduction techniques w ere utilized for this exam: automated exposure control, adjustment of mA and/or KV based on patient s ize, or use of iterative reconstructive technique. FINDINGS: Pulmonary Arteries: Diagnostic quality: Adequate through the proximal segmental arteries. Motion artifact obscures portio ns of distal vessels. No evidence for acute or chronic pulmonary emboli. Lungs/Pleura: There are large bilateral pleural effusions. There is bilateral atelectasis. No pneumot horax. Mediastinum: There is cardiomegaly. There are coronary artery calcifications. There are no enlarged t horacic lymph nodes. Thoracic Aorta: Unremarkable. Upper Abdomen: Unremarkable. Other: There is asymmetry of the visualized psoas musculature. This may be artifact secondary to diane ent positioning. IMPRESSION: 1. No evidence of acute pulmonary embolism through the proximal segmental branch level. Significant r espiratory motion artifact obscures distal vessels. 2. No evidence of thoracic aortic dissection. 3. There are large bilateral pleural effusions. 4. No evidence of focal infiltrate. 5. No pneumothorax. 6. There is cardiomegaly. [facility] Referring Provider Line: [phone] SITE ID: [id number]
--- NOTE | 2017-06-05 18:21 | Ultrasound Preliminary Report ---
Exam: US DUPLEX EXT VEINS LEFT IMPRESSION: No evidence for deep venous thrombosis. [facility] SITE ID: [id number]
--- NOTE | 2017-06-05 18:48 | Ultrasound Report ---
EXAM: LEFT LOWER EXTREMITY VENOUS ULTRASOUND EXAM DATE: 06/05/2017 06:01 PM. CLINICAL HISTORY: Left inner thigh bruising and swelling. Concern for DVT. COMPARISON: None. TECHNIQUE: Real-time sonographic vascular imaging was performed by the jordan man through the lower extremity utilizing both color-flow and Doppler spectral analysis. Multiple artist representative static ke ges were saved for review. FINDINGS: Common Femoral Vein (CFV): Normal. CFV-GSV Junction: Normal. Profunda Femoral Vein (PFV): Normal. Femoral Vein (FV) Prox: Normal. Femoral Vein (FV) Mid: Normal. Femoral Vein (FV) Dist: Normal. Popliteal Vein: Normal. Posterior Tibial Veins: Normal. Peroneal Veins: Normal. Contralateral Side CFV: Normal. Other: Study limited by patient restlessness and movement. Mild soft tissue edema present in the left leg, particularly in the calf. IMPRESSION: No evidence for deep venous thrombosis. [facility] Referring Provider Line: [phone] SITE ID: [id number]
[2017-06-05 20:53] LABS: HGB - HEMOGLOBIN 7.4 g/dL (14.0-18.0)
[2017-06-05 21:08] LABS: ALBUMIN 2.9 g/dL (3.2-5.5); ALBUMIN/GLOBULIN RATIO 0.8 (1.0-2.2); BILIRUBIN,TOTAL 0.9 mg/dL (0.2-1.0); CALCIUM 8.9 mg/dL (8.5-10.3); CREATININE 1.3 mg/dL (0.6-1.2); TOTAL PROTEIN 6.6 g/dL (6.7-8.2)
[2017-06-05 21:10] LABS: AMYLASE 44 U/L (28-100); LIPASE 47 U/L (22-51)
[2017-06-05] MEDS ORDERED: IPRATROPIUM/ALBUTEROL 3 ML NEB INH PRN (21:36)
[2017-06-05] MEDS: SODIUM CHLORIDE FLUSH 0.9% 10 ML SYRINGE IVP SCH (22:20)
[2017-06-05] MEDS: FUROSEMIDE 40 MG/4 ML VIAL IVP SCH (22:20)
[2017-06-05] MEDS: IPRATROPIUM/ALBUTEROL 3 ML NEB INH SCH (22:26)
[2017-06-06] MEDS ORDERED: MIN OIL/DIMETHICON/COCONUT OIL 92 GM TUBE TOP PRN (01:52)
[2017-06-06 05:21] LABS: BASOPHILS % (AUTO) 0.5 %; EOSINOPHILS % (AUTO) 0.6 %; LYMPHOCYTES # (AUTO) 1.5 10^3/uL (1.5-3.5); LYMPHOCYTES % (AUTO) 30.1 %; MEAN CORPUSCULAR HEMOGLOBIN 25.8 pg (27.0-31.0); MEAN CORPUSCULAR VOLUME 86.1 fL (80.0-94.0); MEAN PLATELET VOLUME 6.9 fL (7.4-11.4); MONOCYTES # (AUTO) 0.7 10^3/uL (0.0-1.0); MONOCYTES % (AUTO) 13.8 %; NEUTROPHILS # (AUTO) 2.8 10^3/uL (1.5-6.6); PLT - PLATELET COUNT 139 10^3/uL (130-450); RED BLOOD COUNT 2.65 10^6/uL (4.70-6.10); RED CELL DISTRIBUTION WIDTH 22.3 % (12.0-15.0)
[2017-06-06 05:27] LABS: HGB - HEMOGLOBIN 6.9 g/dL (14.0-18.0)
[2017-06-06 05:36] LABS: % IRON SATURATION 5 % (20-50); ALBUMIN 2.7 g/dL (3.2-5.5); ALBUMIN/GLOBULIN RATIO 0.8 (1.0-2.2); ALKALINE PHOSPHATASE 56 IU/L (42-121); ALT ALANINE AMINOTRANSFERASE 14 IU/L (10-60); AST ASPARTATE AMINOTRANSFERASE 29 IU/L (10-42); BILIRUBIN,TOTAL 1.3 mg/dL (0.2-1.0); BUN - BLOOD UREA NITROGEN 22 mg/dL (6-20); CALCIUM 8.7 mg/dL (8.5-10.3); CARBON DIOXIDE - CO2 26 mmol/L (21-32); CHLORIDE 105 mmol/L (101-111); CHOL/HDL RATIO 2.9 (<5.0); CHOLESTEROL 90 mg/dL; CREATININE 1.4 mg/dL (0.6-1.2); GFR - MDRD 48 (>89); GLUCOSE 91 mg/dL (70-100); HDL CHOLESTEROL 31 mg/dL; IRON 20 ug/dL (45-182); LDL CHOLESTEROL,CALCULATED 48 mg/dL; LDL/HDL RATIO 1.5 (<3.6); MAGNESIUM 1.5 mg/dL (1.7-2.8); PHOSPHORUS 3.4 mg/dL (2.5-4.6); SODIUM 138 mmol/L (135-145); TOTAL IRON BINDING CAPACITY 367 ug/dL (250-450); TOTAL PROTEIN 6.1 g/dL (6.7-8.2); TRANSFERRIN 262 mg/dL (180-329); VLDL CHOLESTEROL 11 mg/dL
[2017-06-06 05:37] LABS: HB2 TOTAL 7.3 g/dL; HEMOGLOBIN A1C 0.25 g/dL; HEMOGLOBIN A1C % 5.3 % (4.6-6.2)
[2017-06-06 06:25] LABS: PLATELET MORPHOLOGY NORMAL APPEARANCE (NORMAL)
[2017-06-06 06:26] LABS: PLATELET ESTIMATE, MANUAL NORMAL (130-450,000) (NORMAL)
[2017-06-06] MEDS: IPRATROPIUM/ALBUTEROL 3 ML NEB INH SCH ×2 (08:01→18:20)
[2017-06-06] MEDS: FUROSEMIDE 40 MG/4 ML VIAL IVP SCH (08:05)
[2017-06-06] MEDS: SODIUM CHLORIDE FLUSH 0.9% 10 ML SYRINGE IVP SCH ×2 (08:06→17:09)
[2017-06-06] MEDS: POLYETHYLENE GLYCOL 3350 17 GM PACKET PO SCH (08:06)
[2017-06-06] MEDS ORDERED: POTASSIUM CHLORIDE 20 MEQ TABLET PO ONE (08:38)
[2017-06-06] MEDS ORDERED: MAGNESIUM SULFATE 1 GM in SODIUM CHLORIDE 0.9% 50 ML IV ONE (08:39)
[2017-06-06] MEDS: FERROUS SULFATE 325 MG TABLET PO SCH ×2 (09:16→17:09)
[2017-06-06] MEDS: ACETAMINOPHEN 325 MG TABLET PO PRN ×3 (09:38→20:30)
[2017-06-06] MEDS ORDERED: IOPAMIDOL-300 100 ML VIAL ONE (10:46)
--- NOTE | 2017-06-06 11:40 | CT Report ---
CT ABDOMEN AND PELVIS WITH CONTRAST: 06/05/2017 CLINICAL INDICATION: Elevated bilirubin. TECHNIQUE: Axial CT images of the abdomen and pelvis were obtained with 100 mL Isovue 300 intravenously. No oral contrast was administered. COMPARISON: No previous CT is available for comparison. FINDINGS: Limited evaluation of the lung bases again demonstrate bilateral effusions and compressive atelectasis. ABDOMEN: The patient is status post cholecystectomy. No focal hepatic lesion is appreciated. A small volume of ascites is present. There is a large hernia at the right lower quadrant ostomy site, containing multiple nonobstructed loops of bowel. The spleen, pancreas and adrenal glands appear unremarkable. The kidneys demonstrate cortical cysts. No solid renal lesion is seen. No free intraperitoneal gas or adenopathy is appreciated. PELVIS: Postoperative changes are present in the pelvis. A small amount of ascites is present. No pelvic adenopathy is seen. Osseous structures demonstrate degenerative changes. IMPRESSION: NO FOCAL LIVER LESION IS APPRECIATED. LARGE HERNIA AT THE OSTOMY SITE, BUT NO EVIDENCE OF BOWEL OBSTRUCTION. POSTOPERATIVE CHANGES. CT DOSE REDUCTION STATEMENT In accordance with CT protocol optimization, one or more of the following dose reduction techniques were utilized for this exam: automated exposure control, adjustment of mA and/or KV based on patient size, or use of iterative reconstructive technique. TD: 06/06/2017 11:39
[2017-06-06] MEDS: IOPAMIDOL-300 100 ML VIAL IVP ONE (12:29)
--- NOTE | 2017-06-06 13:26 | CONSULTATION NOTE ---
Referring Provider Name of Referring Provider:: Brodie Britt Consult Date: 06/06/17 Chief Complaint - Chief Complaint Chief Complaint: Anemia, jaundice, hx colon cancer History of Present Illness - Admitted From Admitted From:: ER - History Obtained From Records Reviewed: yes History obtained from: pt & Exam Limitations: pt is [place], elderly and dyspneic - History of Present Illness HPI Comment/Other: 87 yo male who was admitted last night with dyspnea, hypoxemia, large bilateral pleural effusions, possible pneumonitis and CHF. He was also noted to be jaundiced and markedly anemic. He reportedly had a hx of a partial colectomy for cancer in the remote past. Surgical consultation was requested. He and his now report that he suffered from ulcerative colitis and underwent a total proctocolectomy approximately 30 years ago for "pre-cancerous changes". He has a permanent ileostomy and they have not noted melena or significant BRBPR, change in bowel habits, abdominal pain. He reports over 50# wt loss over the past few years. He denies heartburn, indigestion, dysphagia or hx of PUD. He does not use alcohol or tobacco. NSAID use consists of aspirin 81 mg/day. No hx of hepatitis or jaundice, or acholic stools. Neg FH CRC but his son has a hx of esophageal cancer. History - Past Medical History Cardiovascular: reports: High cholesterol Respiratory: reports: COPD (prominent history of tobacco dependence) Neuro: reports: None Endocrine/Autoimmune: reports: HyPOthyroidism GI: reports: Colon polyps, Ulcerative colitis (s/p total proctocolectomy in the 1980s) CLIENT TECHNOLOGIES SPECIALIST: reports: None : reports: Benign prostate hypertrophy, Incontinence, Nocturia, Frequency HEENT: reports: Chronic vision loss, Chronic hearing loss Psych: reports: Depression Musculoskeletal: reports: Osteoarthritis, Fatigue MRSA Hx?: No Other Past Medical History: suspected sick sinus syndrome as per 's description. Now status post pacemaker. - Past Surgical History General: reports: Bowel surgery (total proctocolectomy with permanent ileostomy) Ortho: reports: Knee replacement (bilateral-total) Cardiovascular: reports: Pacemaker - Family & Social History Family History: Mother: , Diabetes, Type 2, Father: , Cancer, Sister: , Diabetes, Type 2, Obesity Family History Comment/Other: son with esophageal cancer; neg for CRC Living arrangement: At home Living Situation: With spouse/s.o., With family - Substance History Use: Uses substance without health or social issues: NONE Abuse: Recurrent use of substance despite neg consequences: NONE Dependence: Experiences withdrawal or developed tolerances: NONE - POLST Patient has POLST: No POLST Status: Full Code Meds/Allgy - Home Medications Home Medications: Ambulatory Orders Medication Instructions Recorded Confirmed Furosemide [Furosemide] 20 mg PO DAILY 06/05/17 06/05/17 Allopurinol 300 mg PO DAILY 06/06/17 06/06/17 Citalopram [CeleXA] 20 mg PO DAILY 06/06/17 06/06/17 Ferrous Sulfate 325 mg PO DAILY 06/06/17 06/06/17 Levothyroxine Sodium 150 mcg PO DAILY 06/06/17 06/06/17 Simvastatin 20 mg PO QPM 06/06/17 06/06/17 - Allergies Allergies/Adverse Reactions: Allergies Allergy/AdvReac Type Severity Reaction Status Date / Time No Known Drug Allergies Allergy Verified 04/20/17 17:52 Review of Systems - Constitutional Constitutional: reports: Weight loss (gradual over several years, approx #50) - Ears, Nose & Throat Ears, Nose & Throat: reports: Hearing loss - Cardiovascular Cariovascular: reports: Exertional dyspnea, Decr. exercise tolerance - Respiratory Respiratory: reports: Orthopnea, SOB at rest, SOB with exertion - Gastrointestinal Gastrointestinal: denies: Abdominal pain, Abdominal distention, Constipation, Change in bowel habits, Rectal bleeding, Black stools, Bloody stools, Vomiting, Reflux/heartburn, Bloating - Genitourinary Genitourinary: reports: Incontinence, Nocturia - Musculoskeletal Musculoskeletal: reports: Joint pain - Hematologic/Lymphatic Hematologic/Lymphatic: reports: Bruising. denies: Blood clots, Bleeding tendencies - All Other Systems All Other Systems: reports: Reviewed and negative Exam - Vital Signs Reviewed Vital Signs: Yes Vital Signs: Vital Signs x48h Temp Pulse Pulse Resp BP BP BP 06/06/17 12:52 36.2 C L 65 18 120/55 L 06/06/17 12:01 36.7 C 83 20 119/65 06/06/17 11:51 36.5 C 65 20 119/54 L 06/06/17 11:40 36.2 C L 68 18 117/57 L 06/06/17 08:01 64 20 06/06/17 07:44 36.6 C 65 20 126/59 L Pulse Ox 06/06/17 12:52 99 06/06/17 12:01 06/06/17 11:51 06/06/17 11:40 06/06/17 08:01 06/06/17 07:44 98 - Physical Exam General Appearance: positive: Moderate distress, Anxious Eyes Bilateral: positive: Normal inspection, Conjunctivae nml, No scleral icterus ENT: positive: Dry mucous membranes Neck: positive: Nml inspection, Trachea midline. negative: Lymphadenopathy (R) , Lymphadenopathy (L) Respiratory: positive: Rhonchi, Other (breath sound diminished in bases) Cardiovascular: positive: No murmur, No gallop, Extrasystoles Peripheral Pulses: positive: 0 Abdomen: positive: Non-tender, No organomegaly, Nml bowel sounds, No distention , Other (ileostomy in the RLQ; large irreducible nontender parastomal hernia). negative: Hepatomegaly, Splenomegaly, Mass Skin: positive: Warm, Dry, Pallor. negative: Cyanosis Extremities: positive: No pedal edema. negative: Calf tenderness Neurologic/Psychiatric: positive: Oriented x3 Conclusion/Plan - Diagnosis Diagnosis: 1. Iron deficiency anemia; certainly occult gi blood loss is possible. UGI sources such as PUD, H.pylori infection, NSAID gastropathy, UGI neoplasm should be considered. 2. Respiratory distress likely related to CHF +/ - pneumonitis - Plan Plan: Treat cardiac/pulmonary conditions until stable, then consider EGD for further evaluation. Empiric therapy with PPI therapy is warranted in the interim. - Lab Results Lab results reviewed: Yes Fish Bones: 06/06/17 05:01 06/06/17 05:01 Other Lab Results: Total Bili 1.2, ow LFT's nl. - Diagnostic Imaging Results Diagnostic Imaging Results: positive: Final report reviewed, Read independently Diagnostic Imaging Results Comments: CT chest: large bilat pleural effusions with lower lobe atelectasis vs infiltrates bilat; cardiomegaly CT abd/pelvis: s/p total colectomy; ileostomy in RLQ with large parastomal hernia; no evidence of bowel obstruction or malignancy; small amt of ascites. US LE's: no evidence of DVT - Other Other Results/Comments: iron studies show evidence of iron deficiency.
--- NOTE | 2017-06-06 15:17 | PROVIDER PROGRESS NOTE ---
Subjective - Prog Note Date Prog Note Date: 06/06/17 - Subjective Pt reports feeling: Improved Subjective: pt denies complaints today, pt is comfortably eating his breakfast, he ate whole his breakfast. No SOB, chest pain, fever, chill, cough. Current Medications - Current Medications Current Medications: Active Medications Acetaminophen (Tylenol) 650 mg PO Q4HR PRN PRN Reason: Pain or Fever > 38C (100.4F) Last Admin: 06/06/17 13:46 Dose: 650 mg Albuterol/Ipratropium (Duoneb) 3 ml INH RTQID PRN PRN Reason: Shortness of Air/Wheezing Albuterol/Ipratropium (Duoneb) 3 ml INH RTBID [facility]YL[facility] Last Admin: 06/06/17 08:01 Dose: 3 ml Citalopram Hydrobromide (Celexa) 20 mg PO DAILY [facility] Ferrous Sulfate (Feosol) 325 mg PO BIDWM [facility] Last Admin: 06/06/17 09:16 Dose: 325 mg Furosemide (Lasix Inj 40 Mg Vial) 40 mg IVP DAILY [facility] Last Admin: 06/06/17 08:05 Dose: 40 mg Mineral Oil (Cavilon) 1 applic TOP PRN PRN PRN Reason: Skin Care Non-Formulary Medication (Allopurinol [Allopurinol]) 300 mg PO DAILY [facility] Non-Formulary Medication (Levothyroxine Sodium [Levothyroxine Sodium]) 150 mcg PO DAILY [facility] Non-Formulary Medication (Simvastatin [Simvastatin]) 20 mg PO QPM [facility] Pantoprazole Sodium (Protonix) 40 mg PO QDAC [facility] Polyethylene Glycol (Miralax) 17 gm PO DAILY [facility] Last Admin: 06/06/17 08:06 Dose: Not Given Sodium Chloride (Normal Saline Flush 0.9%) 10 ml IVP PRN PRN PRN Reason: NEEDED PER PROVIDER ORDERS Last Admin: 06/06/17 09:17 Dose: 10 ml Sodium Chloride (Normal Saline Flush 0.9%) 10 ml IVP 0100,0900,1700 [facility] Last Admin: 06/06/17 08:06 Dose: 10 ml Furosemide [Furosemide] 20 mg PO DAILY 06/05/17 Allopurinol 300 mg PO DAILY 06/06/17 Citalopram [CeleXA] 20 mg PO DAILY 06/06/17 Ferrous Sulfate 325 mg PO DAILY 06/06/17 Levothyroxine Sodium 150 mcg PO DAILY 06/06/17 Simvastatin 20 mg PO QPM 06/06/17 Objective - Vital Signs/Intake & Output Reviewed Vital Signs: Yes Vital Signs: Vital Signs x48h Temp Pulse Pulse Resp BP BP BP 06/06/17 12:55 36.2 C L 65 18 120/55 L 06/06/17 12:52 36.2 C L 65 18 120/55 L 06/06/17 12:01 36.7 C 83 20 119/65 06/06/17 11:51 36.5 C 65 20 119/54 L 06/06/17 11:40 36.2 C L 68 18 117/57 L 06/06/17 08:01 64 20 06/06/17 07:44 36.6 C 65 20 126/59 L Pulse Ox 06/06/17 12:55 06/06/17 12:52 99 06/06/17 12:01 06/06/17 11:51 06/06/17 11:40 06/06/17 08:01 06/06/17 07:44 98 Intake & Output: Intake & Output 06/03/17 06/04/17 06/05/17 06/06/17 23:59 23:59 23:59 23:59 Intake Total 872 Output Total 100 450 Balance -100 422 - Objective General Appearance: positive: No acute distress, Alert. negative: Lethargic Eyes Bilateral: positive: Normal inspection, PERRL, No lid inflammation, Conjunctivae nml ENT: positive: ENT inspection nml, Pharynx nml, No signs of dehydration. negative: Purulent nasal drainage, Pharyngeal erythema, Oral lesions Neck: positive: Nml inspection, Thyroid nml, No JVD, Trachea midline. negative : Thyromegaly, Lymphadenopathy (R), Lymphadenopathy (L), Stiff neck, Swelling/ bruising, Tracheal deviation Respiratory: positive: Chest non-tender, No respiratory distress, Other ( reduced lung sound bilaterally). negative: Wheezes, Rales, Rhonchi Cardiovascular: positive: Regular rate & rhythm, No murmur, No gallop. negative : Irregularly irregular, Extrasystoles, Tachycardia, Bradycardia, Systolic murmur, Diastolic murmur Peripheral Pulses: 2+ Radial (R), 2+ Radial (L), 2+ Dorsalis pedis (R), 2+ Dorsalis pedis (L) Abdomen: positive: Non-tender, No organomegaly, Nml bowel sounds, No distention. negative: Tenderness, Guarding, Rebound Back: positive: Nml inspection. negative: CVA tenderness (R), CVA tenderness (L ) Skin: positive: Color nml, No rash, Warm, Dry. negative: Cyanosis, Diaphoresis , Pallor Extremities: positive: Non-tender, Full ROM, Nml appearance. negative: Calf tenderness, Joint swelling, Whitley's sign/cords Neurologic/Psychiatric: positive: Sensation nml, Mood/affect nml. negative: Sensory loss, Facial droop, Slurred/abnml speech, Depressed mood/affect - Lab Results Fish Bones: 06/06/17 05:06/06/17 05:01 Other Labs: Lab Results x24hrs 06/06/17 06/06/17 06/06/17 Range/Units 05:01 05:01 05:01 WBC (4.8-10.8) x10^3/uL RBC (4.70-6.10) 10^6/uL Hgb (14.0-18.0) g/dL Hct (42.0-52.0) % MCV (80.0-94.0) fL MCH (27.0-31.0) pg MCHC (32.0-36.0) g/dL RDW (12.0-15.0) % Plt Count (130-450) 10^3/uL MPV (7.4-11.4) fL Neut # (1.5-6.6) 10^3/uL Lymph # (1.5-3.5) 10^3/uL Montague # (0.0-1.0) 10^3/uL Eos # (0.0-0.7) 10^3/uL Baso # (0.0-0.1) 10^3/uL Absolute Nucleated RBC x10^3/uL Nucleated RBC % /100WBC Manual Slide Review Platelet Estimate (NORMAL) Platelet Morphology (NORMAL) RBC Morph Micro Appear (NORMAL) Sodium (135-145) mmol/L Potassium (3.5-5.0) mmol/L Chloride (101-111) mmol/L Carbon Dioxide (21-32) mmol/L Anion Gap (6-13) BUN (6-20) mg/dL Creatinine (0.6-1.2) mg/dL Estimated GFR (MDRD) (>89) Glucose (70-100) mg/dL Glycated Hemoglobin (4.6-6.2) % Estim Average Glucose (70-100) Calcium (8.5-10.3) mg/dL Phosphorus (2.5-4.6) mg/dL Magnesium (1.7-2.8) mg/dL Iron (45-182) ug/dL TIBC (250-450) ug/dL % Saturation (20-50) % Transferrin (180-329) mg/dL Total Bilirubin (0.2-1.0) mg/dL AST (10-42) IU/L ALT (10-60) IU/L Alkaline Phosphatase (42-121) IU/L Troponin I 0.05 (<0.49) ng/mL B-Natriuretic Peptide 377 H (5-100) pg/mL Total Protein (6.7-8.2) g/dL Albumin (3.2-5.5) g/dL Globulin (2.1-4.2) g/dL Albumin/Globulin Ratio (1.0-2.2) Triglycerides ( - 149) mg/dL Cholesterol ( - 199) mg/dL LDL Cholesterol, Calc ( - 129) mg/dL VLDL Cholesterol mg/dL HDL Cholesterol (60 - ) mg/dL LDL/HDL Ratio (<3.6) Cholesterol/HDL Ratio (<5.0) Amylase (28-100) U/L Lipase (22-51) U/L TSH (0.34-5.60) uIU/mL Free T4 (0.58-1.64) ng/dL Free T3 pg/mL 1.85 L (2.5-3.9) pg/mL 18 18 06/06/17 Range/Units 05:01 05: 05:01 WBC (4.8-10.8) x10^3/uL RBC (4.70-6.10) 10^6/uL Hgb (14.0-18.0) g/dL Hct (42.0-52.0) % MCV (80.0-94.0) fL MCH (27.0-31.0) pg MCHC (32.0-36.0) g/dL RDW (12.0-15.0) % Plt Count (130-450) 10^3/uL MPV (7.4-11.4) fL Neut # (1.5-6.6) 10^3/uL Lymph # (1.5-3.5) 10^3/uL Montague # (0.0-1.0) 10^3/uL Eos # (0.0-0.7) 10^3/uL Baso # (0.0-0.1) 10^3/uL Absolute Nucleated RBC x10^3/uL Nucleated RBC % /100WBC Manual Slide Review Platelet Estimate (NORMAL) Platelet Morphology (NORMAL) RBC Morph Micro Appear (NORMAL) Sodium 138 (135-145) mmol/L Potassium 3.3 L (3.5-5.0) mmol/L Chloride 105 (101-111) mmol/L Carbon Dioxide 26 (21-32) mmol/L Anion Gap 7.0 (6-13) BUN 22 H (6-20) mg/dL Creatinine 1.4 H (0.6-1.2) mg/dL Estimated GFR (MDRD) 48 L (>89) Glucose 91 (70-100) mg/dL Glycated Hemoglobin 5.3 (4.6-6.2) % Estim Average Glucose 105 H (70-100) Calcium 8.7 (8.5-10.3) mg/dL Phosphorus 3.4 (2.5-4.6) mg/dL Magnesium 1.5 L (1.7-2.8) mg/dL Iron 20 L (45-182) ug/dL TIBC 367 (250-450) ug/dL % Saturation 5 L (20-50) % Transferrin 262 (180-329) mg/dL Total Bilirubin 1.3 H (0.2-1.0) mg/dL AST 29 (10-42) IU/L ALT 14 (10-60) IU/L Alkaline Phosphatase 56 (42-121) IU/L Troponin I (<0.49) ng/mL B-Natriuretic Peptide (5-100) pg/mL Total Protein 6.1 L (6.7-8.2) g/dL Albumin 2.7 L (3.2-5.5) g/dL Globulin 3.4 (2.1-4.2) g/dL Albumin/Globulin Ratio 0.8 L (1.0-2.2) Triglycerides 54 ( - 149) mg/dL Cholesterol 90 ( - 199) mg/dL LDL Cholesterol, Calc 48 ( - 129) mg/dL VLDL Cholesterol 11 mg/dL HDL Cholesterol 31 L (60 - ) mg/dL LDL/HDL Ratio 1.5 (<3.6) Cholesterol/HDL Ratio 2.9 (<5.0) Amylase (28-100) U/L Lipase (22-51) U/L TSH (0.34-5.60) uIU/mL Free T4 1.17 (0.58-1.64) ng/dL Free T3 pg/mL (2.5-3.9) pg/mL 06/06/17 06/05/17 06/05/17 Range/Units 05:01 20:30 20:30 WBC 5.0 (4.8-10.8) x10^3/uL RBC 2.65 L (4.70-6.10) 10^6/uL Hgb 6.9 L* 7.4 L (14.0-18.0) g/dL Hct 22.8 L 25.0 L (42.0-52.0) % MCV 86.1 (80.0-94.0) fL MCH 25.8 L (27.0-31.0) pg MCHC 30.0 L (32.0-36.0) g/dL RDW 22.3 H (12.0-15.0) % Plt Count 139 (130-450) 10^3/uL MPV 6.9 L (7.4-11.4) fL Neut # 2.8 (1.5-6.6) 10^3/uL Lymph # 1.5 (1.5-3.5) 10^3/uL Montague # 0.7 (0.0-1.0) 10^3/uL Eos # 0.0 (0.0-0.7) 10^3/uL Baso # 0.0 (0.0-0.1) 10^3/uL Absolute Nucleated RBC 0.02 x10^3/uL Nucleated RBC % 0.4 /100WBC Manual Slide Review Indicated Platelet Estimate NORMAL (130-450,000) (NORMAL) Platelet Morphology NORMAL APPEARANCE (NORMAL) RBC Morph Micro Appear 1+ OVALOCYTES (NORMAL) Sodium (135-145) mmol/L Potassium (3.5-5.0) mmol/L Chloride (101-111) mmol/L Carbon Dioxide (21-32) mmol/L Anion Gap (6-13) BUN (6-20) mg/dL Creatinine (0.6-1.2) mg/dL Estimated GFR (MDRD) (>89) Glucose (70-100) mg/dL Glycated Hemoglobin (4.6-6.2) % Estim Average Glucose (70-100) Calcium (8.5-10.3) mg/dL Phosphorus (2.5-4.6) mg/dL Magnesium (1.7-2.8) mg/dL Iron (45-182) ug/dL TIBC (250-450) ug/dL % Saturation (20-50) % Transferrin (180-329) mg/dL Total Bilirubin (0.2-1.0) mg/dL AST (10-42) IU/L ALT (10-60) IU/L Alkaline Phosphatase (42-121) IU/L Troponin I (<0.49) ng/mL B-Natriuretic Peptide (5-100) pg/mL Total Protein (6.7-8.2) g/dL Albumin (3.2-5.5) g/dL Globulin (2.1-4.2) g/dL Albumin/Globulin Ratio (1.0-2.2) Triglycerides ( - 149) mg/dL Cholesterol ( - 199) mg/dL LDL Cholesterol, Calc ( - 129) mg/dL VLDL Cholesterol mg/dL HDL Cholesterol (60 - ) mg/dL LDL/HDL Ratio (<3.6) Cholesterol/HDL Ratio (<5.0) Amylase (28-100) U/L Lipase (22-51) U/L TSH 12.56 H (0.34-5.60) uIU/mL Free T4 (0.58-1.64) ng/dL Free T3 pg/mL (2.5-3.9) pg/mL 06/05/17 06/05/17 Range/Units 20:30 20:19 WBC (4.8-10.8) x10^3/uL RBC (4.70-6.10) 10^6/uL Hgb (14.0-18.0) g/dL Hct (42.0-52.0) % MCV (80.0-94.0) fL MCH (27.0-31.0) pg MCHC (32.0-36.0) g/dL RDW (12.0-15.0) % Plt Count (130-450) 10^3/uL MPV (7.4-11.4) fL Neut # (1.5-6.6) 10^3/uL Lymph # (1.5-3.5) 10^3/uL Montague # (0.0-1.0) 10^3/uL Eos # (0.0-0.7) 10^3/uL Baso # (0.0-0.1) 10^3/uL Absolute Nucleated RBC x10^3/uL Nucleated RBC % /100WBC Manual Slide Review Platelet Estimate (NORMAL) Platelet Morphology (NORMAL) RBC Morph Micro Appear (NORMAL) Sodium 134 L (135-145) mmol/L Potassium 4.0 (3.5-5.0) mmol/L Chloride 102 (101-111) mmol/L Carbon Dioxide 26 (21-32) mmol/L Anion Gap 6.0 (6-13) BUN 22 H (6-20) mg/dL Creatinine 1.3 H (0.6-1.2) mg/dL Estimated GFR (MDRD) 52 L (>89) Glucose 111 H (70-100) mg/dL Glycated Hemoglobin (4.6-6.2) % Estim Average Glucose (70-100) Calcium 8.9 (8.5-10.3) mg/dL Phosphorus (2.5-4.6) mg/dL Magnesium (1.7-2.8) mg/dL Iron (45-182) ug/dL TIBC (250-450) ug/dL % Saturation (20-50) % Transferrin (180-329) mg/dL Total Bilirubin 0.9 (0.2-1.0) mg/dL AST 27 (10-42) IU/L ALT 15 (10-60) IU/L Alkaline Phosphatase 65 (42-121) IU/L Troponin I (<0.49) ng/mL B-Natriuretic Peptide (5-100) pg/mL Total Protein 6.6 L (6.7-8.2) g/dL Albumin 2.9 L (3.2-5.5) g/dL Globulin 3.7 (2.1-4.2) g/dL Albumin/Globulin Ratio 0.8 L (1.0-2.2) Triglycerides ( - 149) mg/dL Cholesterol ( - 199) mg/dL LDL Cholesterol, Calc ( - 129) mg/dL VLDL Cholesterol mg/dL HDL Cholesterol (60 - ) mg/dL LDL/HDL Ratio (<3.6) Cholesterol/HDL Ratio (<5.0) Amylase 44 (28-100) U/L Lipase 47 (22-51) U/L TSH (0.34-5.60) uIU/mL Free T4 (0.58-1.64) ng/dL Free T3 pg/mL (2.5-3.9) pg/mL Assessment/Plan - Problem List (1) Hypoxia Impression: (1) Hypoxia Conclusion/Plan: resolved. pt had 98%/96% sats on room air. No acute respiratory distress. continue closely vital monitor, PRN O2 supplement The patient has been attending physical therapy out patient since his right shoulder injury on 05/07/17 and was noted to be winded. Oxygen saturations were noted to be in the 70's per the patient's Evelyn and ED reports. The patient has required oxygen since that time. This is likely a combination of the patient being anemic, having ongoing pleural effusions, and new cardiomegaly seen by imaging. Plan: Continue oxygen supplementation. (2) Anemia Conclusion/Plan: Pt's HGB is 6.9. transfusion of one unit of blood, caution of fluid overload. iron study indicate iron deficiency, resume home iron follow surgeon, pt hx of gastric ulcer add PPI The patient appears slightly jaundice and pale upon exam. The patient had a declining hemoglobin of ~7 upon admission. He was seen in the ED on 05/07/17 for his right shoulder injury and at that time his hemoglobin was in the 8 range. The patient's , Evelyn explains that she has doubled his iron supplement lately. Plan: General surgery, Dr. Hunter Cifuentes will see patient in AM to evaluate this. 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 Plan: Watch on telemetry overnight. (4) Hypothyroidism Conclusion/Plan: Pt has elevated TSH, but normal T4 and slight lower T3, resume home levothyroxine 150 mcg. pt and his both had dementia, there may has medical non-compliance. The patient has a long standing history of this and is prescribed levothyroxine at home, a low dose of 25 mcg. It is unknown what his latest TSH was. Plan: Continue home meds and check a TSH in the AM. (5) Personal history of colon cancer Conclusion/Plan: The patient has a known history of colon cancer, and is now status post bowel resection and has an established right abdominal quadrant ostomy with light brown/green stool. The ED called after taking the admission to alert us of a + occult that was taken from his ostomy appliance. Evelyn, the patient's notes that the ostomy typically has small amounts of blood surrounding the device and she thinks this has caused the positive test. Plan: Will consult general surgery in regards to a possible GI bleed verses liver involvement as the patient is slightly jaundice. (6) bilateral large pleural effusion consult with surgeon, will follow up. hx of pleural effusion, became worsening. it may be caused by right heart failure. It is bilateral pleural effusion, not unilateral. continue diuretics daily lab, vital monitor (7) severe pulmonary HTN and right heart pressure severe elevated RVSP 71 mmHG, right side of hear is large in ECHO. it may cause pt has large pleural effusion pt clinically improved, no obvious SOB, room air with sats of 96%/98% continue support continue vital monitor continue diuretics daily lab and vital monitor continue tele (8) dementia pt's daughter report pt refused to take shower at home, and both pt and his were dementia, and difficult to take care of their self consult with social work, possible replacement planning. neuro check continue to support
[2017-06-06] MEDS: PANTOPRAZOLE 40 MG TABLET PO SCH (17:09)
[2017-06-06] MEDS: ATORVASTATIN 10 MG TABLET PO SCH (20:39)
[2017-06-07] MEDS: SODIUM CHLORIDE FLUSH 0.9% 10 ML SYRINGE IVP SCH ×3 (00:24→17:00)
[2017-06-07 01:14] LABS: HGB - HEMOGLOBIN 7.9 g/dL (14.0-18.0)
[2017-06-07 05:35] LABS: BASOPHILS % (AUTO) 0.7 %; EOSINOPHILS # (AUTO) 0.1 10^3/uL (0.0-0.7); EOSINOPHILS % (AUTO) 1.4 %; HGB - HEMOGLOBIN 8.2 g/dL (14.0-18.0); LYMPHOCYTES # (AUTO) 1.8 10^3/uL (1.5-3.5); LYMPHOCYTES % (AUTO) 30.9 %; MEAN CORPUSCULAR HEMOGLOBIN 26.3 pg (27.0-31.0); MEAN CORPUSCULAR HGB CONC 30.8 g/dL (32.0-36.0); MEAN CORPUSCULAR VOLUME 85.4 fL (80.0-94.0); MEAN PLATELET VOLUME 7.2 fL (7.4-11.4); MONOCYTES # (AUTO) 0.6 10^3/uL (0.0-1.0); NEUTROPHILS # (AUTO) 3.3 10^3/uL (1.5-6.6); PLT - PLATELET COUNT 154 10^3/uL (130-450); RED BLOOD COUNT 3.12 10^6/uL (4.70-6.10); RED CELL DISTRIBUTION WIDTH 21.3 % (12.0-15.0); WHITE BLOOD COUNT 5.8 x10^3/uL (4.8-10.8)
[2017-06-07 05:40] LABS: ALBUMIN 2.8 g/dL (3.2-5.5); ALBUMIN/GLOBULIN RATIO 0.8 (1.0-2.2); BILIRUBIN,TOTAL 1.3 mg/dL (0.2-1.0); CALCIUM 8.7 mg/dL (8.5-10.3); CREATININE 1.6 mg/dL (0.6-1.2); MAGNESIUM 1.7 mg/dL (1.7-2.8); PHOSPHORUS 3.8 mg/dL (2.5-4.6); TOTAL PROTEIN 6.4 g/dL (6.7-8.2)
[2017-06-07] MEDS: LEVOTHYROXINE 75 MCG TABLET PO SCH (06:36)
[2017-06-07] MEDS: PANTOPRAZOLE 40 MG TABLET PO SCH (06:36)
[2017-06-07 07:40] LABS: HGB - HEMOGLOBIN 8.4 g/dL (14.0-18.0)
[2017-06-07] MEDS ORDERED: POTASSIUM CHLORIDE 20 MEQ TABLET PO SCH (07:57)
[2017-06-07] MEDS: IPRATROPIUM/ALBUTEROL 3 ML NEB INH SCH ×2 (08:00→20:36)
--- NOTE | 2017-06-07 08:38 | PROVIDER PROGRESS NOTE ---
Assessment/Plan - Problem List (1) Anemia Qualifiers: Anemia type: iron deficiency Iron deficiency anemia type: chronic blood loss Qualified Code(s): D50.0 - Iron deficiency anemia secondary to blood loss (chronic) Assessment/Plan: H/H stable indicative of no active bleeding; UGI source should be considered. Rec: EGD in am if pt continues to improve from a cardiac/pulmonary standpoint. (2) Pleural effusion Assessment/Plan: Large bilateral effusions of unclear etiology, possibly due to CHF, less likely neoplasm, infection, likely symptomatic. Rec: discuss with hospitalist whether thoracentesis is indicated/necessary. - Current Meds Current Meds: Current Medications Generic Name Dose Route Start Last Admin Trade Name Freq PRN Reason Stop Dose Admin Acetaminophen 650 mg 06/06/17 09:31 06/06/17 20:30 Tylenol PO 650 mg Q4HR PRN Administration Pain or Fever > 38C (100.4F) Albuterol/Ipratropium 3 ml 06/05/17 22:00 06/07/17 08:00 Duoneb INH 3 ml RTBID [facility] Administration Atorvastatin Calcium 20 mg 06/06/17 21:00 06/06/17 20:39 Lipitor PO 20 mg QPM [facility] Administration Ferrous Sulfate 325 mg 06/06/17 09:00 06/06/17 17:09 Feosol PO 325 mg BIDWM [facility] Administration Furosemide 40 mg 06/05/17 22:00 06/06/17 08:05 Lasix Inj 40 Mg Vial IVP 40 mg DAILY [facility] Administration Levothyroxine Sodium 150 mcg 06/07/17 07:00 06/07/17 06:36 Synthroid PO 150 mcg QDAC [facility] Administration Pantoprazole Sodium 40 mg 06/06/17 16:00 06/07/17 06:36 Protonix PO 40 mg QDAC [facility] Administration Polyethylene Glycol 17 gm 06/06/17 09:00 06/06/17 08:06 Miralax PO Not Given DAILY [facility] Sodium Chloride 10 ml 06/05/17 17:19 06/06/17 09:17 Normal Saline Flush 0.9% IVP 10 ml PRN PRN Administration NEEDED PER PROVIDER ORDERS Sodium Chloride 10 ml 06/06/17 01:00 06/07/17 00:24 Normal Saline Flush 0.9% IVP 10 ml 0100,0900,1700 [facility] Administration - Lab Result Lab results reviewed: Yes Fish Bone Diagrams: 06/07/17 07:00 06/07/17 05:10 - Diagnostic Imaging Results Diagnostic Imaging Results: Final report reviewed, Read independently Diagnostic Imaging Results Comments: Large bilateral pleural effusions, right greater than left ECHOcardiogram: severe pulmonary hypertension and tricuspid regurgitation; adequate LV function - Additional Planning Condition/Complexity: Improved Plan Discussed with:: Patient, Spouse Subjective - Subjective Patient Reports: Feeling Better, Resting Comfortably, No Complaints Nursing Reports: No Complaints Objective Vital Signs: Vital Signs - 24 hr 06/06/17 06/06/17 06/06/17 11:40 11:51 12:01 Temperature 36.2 C L 36.5 C 36.7 C Heart Rate 68 65 83 Heart Rate [ Brachial] Respiratory 18 20 20 Rate Blood Pressure 117/57 L 119/54 L 119/65 Blood Pressure [Left Brachial artery] Blood Pressure [Right Brachial artery] O2 Saturation 06/06/17 06/06/17 06/06/17 12:52 12:55 15:20 Temperature 36.2 C L 36.2 C L 36.6 C Heart Rate 65 60 Heart Rate [ 65 Brachial] Respiratory 18 18 18 Rate Blood Pressure 120/55 L 100/52 L Blood Pressure 120/55 L [Left Brachial artery] Blood Pressure [Right Brachial artery] O2 Saturation 99 06/06/17 06/06/17 06/06/17 15:26 18:20 20:20 Temperature 36.6 C 36.2 C L Heart Rate 61 Heart Rate [ 62 51 L Brachial] Respiratory 18 22 18 Rate Blood Pressure Blood Pressure 114/54 L 111/57 L [Left Brachial artery] Blood Pressure [Right Brachial artery] O2 Saturation 96 98 06/07/17 00:00 Temperature 36.8 C Heart Rate Heart Rate [ 70 Brachial] Respiratory 16 Rate Blood Pressure Blood Pressure [Left Brachial artery] Blood Pressure 126/66 [Right Brachial artery] O2 Saturation 94 Oxygen O2 Source Room air I&O (Last 24 Hrs): Intake and Output Totals x24h 06/05/17 06/06/17 06/07/17 23:59 23:59 23:59 Intake Total 1922 Output Total 100 550 300 Balance -100 1372 -300 General: Alert, Oriented x3, Cooperative Neck: No JVD Neuro: Alert Abdomen: Soft, No tenderness, No hepatospenomegaly, No masses - Results Results: Laboratory Results WBC 5.8 x10^3/uL (4.8-10.8) 06/07/17 05:10 RBC 3.12 10^6/uL (4.70-6.10) L 06/07/17 05:10 Hgb 8.4 g/dL (14.0-18.0) L 06/07/17 07:00 Hct 26.6 % (42.0-52.0) L 06/07/17 07:00 MCV 85.4 fL (80.0-94.0) 06/07/17 05:10 MCH 26.3 pg (27.0-31.0) L 06/07/17 05:10 MCHC 30.8 g/dL (32.0-36.0) L 06/07/17 05:10 RDW 21.3 % (12.0-15.0) H 06/07/17 05:10 Plt Count 154 10^3/uL (130-450) 06/07/17 05:10 MPV 7.2 fL (7.4-11.4) L 06/07/17 05:10 Neut # 3.3 10^3/uL (1.5-6.6) 06/07/17 05:10 Lymph # 1.8 10^3/uL (1.5-3.5) 06/07/17 05:10 [place] # 0.6 10^3/uL (0.0-1.0) 06/07/17 05:10 Eos # 0.1 10^3/uL (0.0-0.7) 06/07/17 05:10 Baso # 0.0 10^3/uL (0.0-0.1) 06/07/17 05:10 Absolute Nucleated RBC 0.01 x10^3/uL 06/07/17 05:10 Nucleated RBC % 0.1 /100WBC 06/07/17 05:10 Manual Slide Review Indicated 06/06/17 05:01 Platelet Estimate NORMAL (130-450,000) (NORMAL) 06/06/17 05:01 Platelet Morphology NORMAL APPEARANCE (NORMAL) 06/06/17 05:01 RBC Morph Micro Appear 2+ ANISOCYTOSIS (NORMAL) 2+ POIKILOCYTOSIS (NORMAL) 2 + HYPOCHROMASIA (NORMAL) 06/05/17 15:49 RBC Morph Micro Appear 2+ ANISOCYTOSIS (NORMAL) 2+ POIKILOCYTOSIS (NORMAL) 2 + HYPOCHROMASIA (NORMAL) 06/05/17 15:49 RBC Morph Micro Appear 2+ ANISOCYTOSIS (NORMAL) 2+ POIKILOCYTOSIS (NORMAL) 1 + HYPOCHROMASIA (NORMAL) 1+ OVALOCYTES (NORMAL) 06/06/17 05:01 RBC Morph Micro Appear 2+ ANISOCYTOSIS (NORMAL) 2+ POIKILOCYTOSIS (NORMAL) 1 + HYPOCHROMASIA (NORMAL) 1+ OVALOCYTES (NORMAL) 06/06/17 05:01 RBC Morph Micro Appear 2+ ANISOCYTOSIS (NORMAL) 2+ POIKILOCYTOSIS (NORMAL) 1 + HYPOCHROMASIA (NORMAL) 1+ OVALOCYTES (NORMAL) 06/06/17 05:01 RBC Morph Micro Appear 2+ ANISOCYTOSIS (NORMAL) 2+ POIKILOCYTOSIS (NORMAL) 1 + HYPOCHROMASIA (NORMAL) 1+ OVALOCYTES (NORMAL) 06/06/17 05:01 Sodium 135 mmol/L (135-145) 06/07/17 05:10 Potassium 3.4 mmol/L (3.5-5.0) L 06/07/17 05:10 Chloride 102 mmol/L (101-111) 06/07/17 05:10 Carbon Dioxide 26 mmol/L (21-32) 06/07/17 05:10 Anion Gap 7.0 (6-13) 06/07/17 05:10 BUN 24 mg/dL (6-20) H 06/07/17 05:10 Creatinine 1.6 mg/dL (0.6-1.2) H 06/07/17 05:10 Estimated GFR (MDRD) 41 (>89) L 06/07/17 05:10 Glucose 87 mg/dL (70-100) 06/07/17 05:10 Glycated Hemoglobin 5.3 % (4.6-6.2) 06/06/17 05:01 Estim Average Glucose 105 (70-100) H 06/06/17 05:01 Calcium 8.7 mg/dL (8.5-10.3) 06/07/17 05:10 Phosphorus 3.8 mg/dL (2.5-4.6) 06/07/17 05:10 Magnesium 1.7 mg/dL (1.7-2.8) 06/07/17 05:10 Iron 20 ug/dL (45-182) L 06/06/17 05:01 TIBC 367 ug/dL (250-450) 06/06/17 05:01 % Saturation 5 % (20-50) L 06/06/17 05:01 Transferrin 262 mg/dL (180-329) 06/06/17 05:01 Total Bilirubin 1.3 mg/dL (0.2-1.0) H 06/07/17 05:10 AST 32 IU/L (10-42) 06/07/17 05:10 ALT 15 IU/L (10-60) 06/07/17 05:10 Alkaline Phosphatase 57 IU/L (42-121) 06/07/17 05:10 Troponin I 0.05 ng/mL (<0.49) 06/06/17 05:01 B-Natriuretic Peptide 437 pg/mL (5-100) H 06/07/17 05:10 Total Protein 6.4 g/dL (6.7-8.2) L 06/07/17 05:10 Albumin 2.8 g/dL (3.2-5.5) L 06/07/17 05:10 Globulin 3.6 g/dL (2.1-4.2) 06/07/17 05:10 Albumin/Globulin Ratio 0.8 (1.0-2.2) L 06/07/17 05:10 Triglycerides 54 mg/dL (-149) 06/06/17 05:01 Cholesterol 90 mg/dL (-199) 06/06/17 05:01 LDL Cholesterol, Calc 48 mg/dL (-129) 06/06/17 05:01 VLDL Cholesterol 11 mg/dL 06/06/17 05:01 HDL Cholesterol 31 mg/dL (60-) L 06/06/17 05:01 LDL/HDL Ratio 1.5 (<3.6) 06/06/17 05:01 Cholesterol/HDL Ratio 2.9 (<5.0) 06/06/17 05:01 Amylase 44 U/L (28-100) 06/05/17 20:19 Lipase 47 U/L (22-51) 06/05/17 20:19 TSH 12.56 uIU/mL (0.34-5.60) H 06/05/17 20:30 Free T4 1.17 ng/dL (0.58-1.64) 06/06/17 05:01 Free T3 pg/mL 1.85 pg/mL (2.5-3.9) L 06/06/17 05:01 Blood Type AB POSITIVE 06/05/17 16:55 Blood Type Recheck AB POSITIVE 06/05/17 15:49 Antibody Screen NEGATIVE 06/05/17 16:55 Crossmatch IS Only See Detail 06/05/17 16:55
[2017-06-07] MEDS: ALLOPURINOL 100 MG TABLET PO SCH (09:16)
[2017-06-07] MEDS: FUROSEMIDE 40 MG/4 ML VIAL IVP SCH (09:16)
[2017-06-07] MEDS: CITALOPRAM 10 MG TABLET PO SCH (09:16)
[2017-06-07] MEDS: FERROUS SULFATE 325 MG TABLET PO SCH ×2 (09:16→17:50)
[2017-06-07] MEDS: POLYETHYLENE GLYCOL 3350 17 GM PACKET PO SCH (09:17)
[2017-06-07 14:08] LABS: HGB - HEMOGLOBIN 8.8 g/dL (14.0-18.0)
--- NOTE | 2017-06-07 14:17 | PROVIDER PROGRESS NOTE ---
Subjective - Prog Note Date Prog Note Date: 06/07/17 - Subjective Pt reports feeling: Improved Subjective: pt state he feel better than yesterday. Pt denies chest pain, SOB, fever, chill. discussed with pt's family, daughter and his about if thoracentesis since pt has large pleural effusion. Pt's Sats is 97% on room air, without SOB, hemodynamical stable. Discussed with pt, his daughter and pt's the benefit and risk of thoracentesis. At this time, pt and his family declined to have thoracentesis. Current Medications - Current Medications Current Medications: Active Medications Acetaminophen (Tylenol) 650 mg PO Q4HR PRN PRN Reason: Pain or Fever > 38C (100.4F) Last Admin: 06/06/17 20:30 Dose: 650 mg Albuterol/Ipratropium (Duoneb) 3 ml INH RTQID PRN PRN Reason: Shortness of Air/Wheezing Albuterol/Ipratropium (Duoneb) 3 ml INH RTBID [facility] Last Admin: 06/07/17 08:00 Dose: 3 ml Allopurinol (Zyloprim) 300 mg PO DAILY [facility] Last Admin: 06/07/17 09:16 Dose: 300 mg Atorvastatin Calcium (Lipitor) 20 mg PO QPM [facility] Last Admin: 06/06/17 20:39 Dose: 20 mg Citalopram Hydrobromide (Celexa) 20 mg PO DAILY [facility] Last Admin: 06/07/17 09:16 Dose: 20 mg Ferrous Sulfate (Feosol) 325 mg PO BIDWM [facility] Last Admin: 06/07/17 09:16 Dose: 325 mg Furosemide (Lasix Inj 40 Mg Vial) 40 mg IVP DAILY [facility] Last Admin: 06/07/17 09:16 Dose: 40 mg Levothyroxine Sodium (Synthroid) 150 mcg PO QDAC [facility] Last Admin: 06/07/17 06:36 Dose: 150 mcg Mineral Oil (Cavilon) 1 applic TOP PRN PRN PRN Reason: Skin Care Pantoprazole Sodium (Protonix) 40 mg PO QDAC [facility] Last Admin: 06/07/17 06:36 Dose: 40 mg Polyethylene Glycol (Miralax) 17 gm PO DAILY [facility] Last Admin: 06/07/17 09:17 Dose: Not Given Potassium Chloride (K-Dur) 20 meq PO ONCE [facility] Stop: 06/07/17 17:00 Last Admin: 06/07/17 09:16 Dose: 20 meq Sodium Chloride (Normal Saline Flush 0.9%) 10 ml IVP PRN PRN PRN Reason: NEEDED PER PROVIDER ORDERS Last Admin: 06/06/17 09:17 Dose: 10 ml Sodium Chloride (Normal Saline Flush 0.9%) 10 ml IVP 0100,0900,1700 [facility] Last Admin: 06/07/17 09:17 Dose: 10 ml Furosemide [Furosemide] 20 mg PO DAILY 06/05/17 Allopurinol 300 mg PO DAILY 06/06/17 Citalopram [CeleXA] 20 mg PO DAILY 06/06/17 Ferrous Sulfate 325 mg PO DAILY 06/06/17 Levothyroxine Sodium 150 mcg PO DAILY 06/06/17 Simvastatin 20 mg PO QPM 06/06/17 Objective - Vital Signs/Intake & Output Reviewed Vital Signs: Yes Vital Signs: Vital Signs x48h Temp Pulse Resp BP Pulse Ox 06/07/17 08:00 36.5 C 81 20 130/60 97 Intake & Output: Intake & Output 06/04/17 06/05/17 06/06/17 06/07/17 23:59 23:59 23:59 23:59 Intake Total 1922 600 Output Total 100 550 450 Balance -100 1372 150 - Objective General Appearance: positive: No acute distress, Alert. negative: Lethargic Eyes Bilateral: positive: Normal inspection, PERRL, No lid inflammation, Conjunctivae nml ENT: positive: ENT inspection nml, Pharynx nml, No signs of dehydration. negative: Purulent nasal drainage, Pharyngeal erythema, Oral lesions Neck: positive: Nml inspection, Thyroid nml, No JVD, Trachea midline. negative : Thyromegaly, Lymphadenopathy (R), Lymphadenopathy (L), Stiff neck, Carotid bruit, Swelling/bruising, Tracheal deviation Respiratory: positive: Chest non-tender, No respiratory distress, Other ( reduced lung sound bilaterally). negative: Wheezes, Rales Cardiovascular: positive: Regular rate & rhythm, No murmur, No gallop. negative : Irregularly irregular, Extrasystoles, Tachycardia, Bradycardia, JVD present, Systolic murmur, Diastolic murmur Peripheral Pulses: 2+ Radial (R), 2+ Radial (L), 2+ Dorsalis pedis (R), 2+ Dorsalis pedis (L) Abdomen: positive: Non-tender, No organomegaly, Nml bowel sounds, No distention. negative: Tenderness, Guarding, Rebound Back: positive: Nml inspection. negative: CVA tenderness (R), CVA tenderness (L ) Skin: positive: Color nml, No rash, Warm, Dry, Skin rash. negative: Cyanosis, Diaphoresis, Pallor Extremities: positive: Non-tender, Full ROM, Nml appearance. negative: Calf tenderness, Joint swelling, Whitley's sign/cords Neurologic/Psychiatric: positive: Sensation nml. negative: Sensory loss, Facial droop, Slurred/abnml speech, Depressed mood/affect - Lab Results Fish Bones: 06/07/17 13:34 06/07/17 05:10 Other Labs: Lab Results x24hrs 06/07/17 06/07/17 06/07/17 Range/Units 13:34 07:00 05:10 WBC (4.8-10.8) x10^3/uL RBC (4.70-6.10) 10^6/uL Hgb 8.8 L 8.4 L (14.0-18.0) g/dL Hct 27.9 L 26.6 L (42.0-52.0) % MCV (80.0-94.0) fL MCH (27.0-31.0) pg MCHC (32.0-36.0) g/dL RDW (12.0-15.0) % Plt Count (130-450) 10^3/uL MPV (7.4-11.4) fL Neut # (1.5-6.6) 10^3/uL Lymph # (1.5-3.5) 10^3/uL [place] # (0.0-1.0) 10^3/uL Eos # (0.0-0.7) 10^3/uL Baso # (0.0-0.1) 10^3/uL Absolute Nucleated RBC x10^3/uL Nucleated RBC % /100WBC Sodium (135-145) mmol/L Potassium (3.5-5.0) mmol/L Chloride (101-111) mmol/L Carbon Dioxide (21-32) mmol/L Anion Gap (6-13) BUN (6-20) mg/dL Creatinine (0.6-1.2) mg/dL Estimated GFR (MDRD) (>89) Glucose (70-100) mg/dL Calcium (8.5-10.3) mg/dL Phosphorus (2.5-4.6) mg/dL Magnesium (1.7-2.8) mg/dL Total Bilirubin (0.2-1.0) mg/dL AST (10-42) IU/L ALT (10-60) IU/L Alkaline Phosphatase (42-121) IU/L B-Natriuretic Peptide 437 H (5-100) pg/mL Total Protein (6.7-8.2) g/dL Albumin (3.2-5.5) g/dL Globulin (2.1-4.2) g/dL Albumin/Globulin Ratio (1.0-2.2) 06/07/17 06/07/17 06/06/17 Range/Units 05:10 05:10 19:23 WBC 5.8 (4.8-10.8) x10^3/uL RBC 3.12 L (4.70-6.10) 10^6/uL Hgb 8.2 L 8.0 L (14.0-18.0) g/dL Hct 26.6 L 25.8 L (42.0-52.0) % MCV 85.4 (80.0-94.0) fL MCH 26.3 L (27.0-31.0) pg MCHC 30.8 L (32.0-36.0) g/dL RDW 21.3 H (12.0-15.0) % Plt Count 154 (130-450) 10^3/uL MPV 7.2 L (7.4-11.4) fL Neut # 3.3 (1.5-6.6) 10^3/uL Lymph # 1.8 (1.5-3.5) 10^3/uL [place] # 0.6 (0.0-1.0) 10^3/uL Eos # 0.1 (0.0-0.7) 10^3/uL Baso # 0.0 (0.0-0.1) 10^3/uL Absolute Nucleated RBC 0.01 x10^3/uL Nucleated RBC % 0.1 /100WBC Sodium 135 (135-145) mmol/L Potassium 3.4 L (3.5-5.0) mmol/L Chloride 102 (101-111) mmol/L Carbon Dioxide 26 (21-32) mmol/L Anion Gap 7.0 (6-13) BUN 24 H (6-20) mg/dL Creatinine 1.6 H (0.6-1.2) mg/dL Estimated GFR (MDRD) 41 L (>89) Glucose 87 (70-100) mg/dL Calcium 8.7 (8.5-10.3) mg/dL Phosphorus 3.8 (2.5-4.6) mg/dL Magnesium 1.7 (1.7-2.8) mg/dL Total Bilirubin 1.3 H (0.2-1.0) mg/dL AST 32 (10-42) IU/L ALT 15 (10-60) IU/L Alkaline Phosphatase 57 (42-121) IU/L B-Natriuretic Peptide (5-100) pg/mL Total Protein 6.4 L (6.7-8.2) g/dL Albumin 2.8 L (3.2-5.5) g/dL Globulin 3.6 (2.1-4.2) g/dL Albumin/Globulin Ratio 0.8 L (1.0-2.2) 06/06/17 Range/Units 00:50 WBC (4.8-10.8) x10^3/uL RBC (4.70-6.10) 10^6/uL Hgb 7.9 L (14.0-18.0) g/dL Hct 25.1 L (42.0-52.0) % MCV (80.0-94.0) fL MCH (27.0-31.0) pg MCHC (32.0-36.0) g/dL RDW (12.0-15.0) % Plt Count (130-450) 10^3/uL MPV (7.4-11.4) fL Neut # (1.5-6.6) 10^3/uL Lymph # (1.5-3.5) 10^3/uL [place] # (0.0-1.0) 10^3/uL Eos # (0.0-0.7) 10^3/uL Baso # (0.0-0.1) 10^3/uL Absolute Nucleated RBC x10^3/uL Nucleated RBC % /100WBC Sodium (135-145) mmol/L Potassium (3.5-5.0) mmol/L Chloride (101-111) mmol/L Carbon Dioxide (21-32) mmol/L Anion Gap (6-13) BUN (6-20) mg/dL Creatinine (0.6-1.2) mg/dL Estimated GFR (MDRD) (>89) Glucose (70-100) mg/dL Calcium (8.5-10.3) mg/dL Phosphorus (2.5-4.6) mg/dL Magnesium (1.7-2.8) mg/dL Total Bilirubin (0.2-1.0) mg/dL AST (10-42) IU/L ALT (10-60) IU/L Alkaline Phosphatase (42-121) IU/L B-Natriuretic Peptide (5-100) pg/mL Total Protein (6.7-8.2) g/dL Albumin (3.2-5.5) g/dL Globulin (2.1-4.2) g/dL Albumin/Globulin Ratio (1.0-2.2) Assessment/Plan - Problem List (1) Hypoxia Impression: (1) Hypoxia Conclusion/Plan: resolved. pt had 98%/96% sats on room air. No acute respiratory distress. continue closely vital monitor, PRN O2 supplement The patient has been attending physical therapy out patient since his right shoulder injury on 05/07/17 and was noted to be winded. Oxygen saturations were noted to be in the 70's per the patient's Evelyn and ED reports. The patient has required oxygen since that time. This is likely a combination of the patient being anemic, having ongoing pleural effusions, and new cardiomegaly seen by imaging. Plan: Continue oxygen supplementation. (2) Anemia Conclusion/Plan: after transfusion, pt's HGB is stable and continue going up continue H&H continue PPI surgeon plan to have EGD on tomorrow Pt's HGB is 6.9. transfusion of one unit of blood, caution of fluid overload. iron study indicate iron deficiency, resume home iron follow surgeon, pt hx of gastric ulcer add PPI The patient appears slightly jaundice and pale upon exam. The patient had a declining hemoglobin of ~7 upon admission. He was seen in the ED on 05/07/17 for his right shoulder injury and at that time his hemoglobin was in the 8 range. The patient's , Evelyn explains that she has doubled his iron supplement lately. Plan: General surgery, Dr. Hunter Cifuentes will see patient in AM to evaluate this. 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 Plan: Watch on telemetry overnight. (4) Hypothyroidism Conclusion/Plan: Pt has elevated TSH, but normal T4 and slight lower T3, resume home levothyroxine 150 mcg. pt and his both had dementia, there may has medical non-compliance. The patient has a long standing history of this and is prescribed levothyroxine at home, a low dose of 25 mcg. It is unknown what his latest TSH was. Plan: Continue home meds and check a TSH in the AM. (5) Personal history of colon cancer Conclusion/Plan: The patient has a known history of colon cancer, and is now status post bowel resection and has an established right abdominal quadrant ostomy with light brown/green stool. The ED called after taking the admission to alert us of a + occult that was taken from his ostomy appliance. Evelyn, the patient's notes that the ostomy typically has small amounts of blood surrounding the device and she thinks this has caused the positive test. Plan: Will consult general surgery in regards to a possible GI bleed verses liver involvement as the patient is slightly jaundice. (6) bilateral large pleural effusion pt and his family decline thoracentesis now. pt is hemodynamical stable. closely monitor with vital, tele consult with surgeon, Dr. Hunter Cifuentes, will follow up consult with surgeon, will follow up. hx of pleural effusion, became worsening. it may be caused by right heart failure. It is bilateral pleural effusion, not unilateral. continue diuretics daily lab, vital monitor (7) severe pulmonary HTN and right heart pressure severe elevated RVSP 71 mmHG, right side of hear is large in ECHO. it may cause pt has large pleural effusion pt clinically improved, no obvious SOB, room air with sats of 96%/98% continue support continue vital monitor continue diuretics daily lab and vital monitor continue tele (8) dementia pt's daughter report pt refused to take shower at home, and both pt and his were dementia, and difficult to take care of their self consult with social work, possible replacement planning. neuro check continue to support
[2017-06-07 19:40] LABS: HGB - HEMOGLOBIN 8.3 g/dL (14.0-18.0)
[2017-06-07] MEDS: ATORVASTATIN 10 MG TABLET PO SCH (20:08)
[2017-06-08] MEDS: SODIUM CHLORIDE FLUSH 0.9% 10 ML SYRINGE IVP SCH ×3 (01:32→20:52)
[2017-06-08 05:40] LABS: BASOPHILS # (AUTO) 0.1 10^3/uL (0.0-0.1); BASOPHILS % (AUTO) 0.7 %; EOSINOPHILS # (AUTO) 0.1 10^3/uL (0.0-0.7); EOSINOPHILS % (AUTO) 1.6 %; HGB - HEMOGLOBIN 8.8 g/dL (14.0-18.0); LYMPHOCYTES # (AUTO) 1.4 10^3/uL (1.5-3.5); LYMPHOCYTES % (AUTO) 19.4 %; MEAN CORPUSCULAR HEMOGLOBIN 26.5 pg (27.0-31.0); MEAN CORPUSCULAR HGB CONC 30.7 g/dL (32.0-36.0); MEAN CORPUSCULAR VOLUME 86.3 fL (80.0-94.0); MEAN PLATELET VOLUME 7.2 fL (7.4-11.4); MONOCYTES # (AUTO) 0.5 10^3/uL (0.0-1.0); MONOCYTES % (AUTO) 7.7 %; NEUTROPHILS % (AUTO) 70.6 %; PLT - PLATELET COUNT 175 10^3/uL (130-450); RED BLOOD COUNT 3.31 10^6/uL (4.70-6.10); RED CELL DISTRIBUTION WIDTH 21.5 % (12.0-15.0); WHITE BLOOD COUNT 7.1 x10^3/uL (4.8-10.8)
[2017-06-08 05:43] LABS: ALBUMIN 2.8 g/dL (3.2-5.5); ALBUMIN/GLOBULIN RATIO 0.7 (1.0-2.2); CALCIUM 8.7 mg/dL (8.5-10.3); CREATININE 1.5 mg/dL (0.6-1.2); MAGNESIUM 1.6 mg/dL (1.7-2.8); PHOSPHORUS 3.2 mg/dL (2.5-4.6); TOTAL PROTEIN 6.6 g/dL (6.7-8.2)
[2017-06-08] MEDS ORDERED: LIDO GARGLE 30 ML BOTTLE ONE (07:01)
[2017-06-08] MEDS ORDERED: LACTATED RINGERS 1,000 ML IV ONE ×2 (07:38)
[2017-06-08] MEDS ORDERED: PROPOFOL 200 MG/20 ML VIAL IVP ONE (07:58)
[2017-06-08] MEDS ORDERED: KETAMINE 500 MG/10 ML VIAL IVP ONE (07:58)
[2017-06-08] MEDS ORDERED: POTASSIUM CHLORIDE 20 MEQ TABLET PO ONE ×2 (08:30→11:00)
[2017-06-08] MEDS: POLYETHYLENE GLYCOL 3350 17 GM PACKET PO SCH (09:40)
[2017-06-08] MEDS: CITALOPRAM 10 MG TABLET PO SCH (09:41)
[2017-06-08] MEDS: PANTOPRAZOLE 40 MG TABLET PO SCH (09:41)
[2017-06-08] MEDS: LEVOTHYROXINE 75 MCG TABLET PO SCH (09:41)
[2017-06-08] MEDS: FERROUS SULFATE 325 MG TABLET PO SCH ×2 (09:42→18:26)
[2017-06-08] MEDS: FUROSEMIDE 40 MG/4 ML VIAL IVP SCH (09:42)
[2017-06-08] MEDS: ALLOPURINOL 100 MG TABLET PO SCH (09:42)
[2017-06-08] MEDS: IPRATROPIUM/ALBUTEROL 3 ML NEB INH SCH ×2 (09:53→20:53)
[2017-06-08] MEDS ORDERED: MAGNESIUM OXIDE 400 MG TABLET PO ONE (10:00)
--- NOTE | 2017-06-08 10:36 | PROCEDURE REPORT ---
Hospitalist Procedure Note - Procedure Note Procedure Note: See detailed procedure report. EGD showed a 10 mm punched out deep non bleeding gastric ulcer at the incisura, which was biopsied. Rec: PPI therapy, no NSAIDs if possible, await biopsies and H. Pylori tests, consider repeat EGD in 2-3 months to document satisfactory healing if patient's overall health permits and pt desires.
[2017-06-08] MEDS: HEPARIN 5,000 UNIT/ML VIAL SUBQ SCH ×2 (14:45→20:34)
[2017-06-08] MEDS: NYSTATIN CREAM 15 GM TUBE TOP SCH ×2 (14:46→20:51)
--- NOTE | 2017-06-08 16:01 | PROVIDER PROGRESS NOTE ---
Subjective - Prog Note Date Prog Note Date: 06/08/17 - Subjective Pt reports feeling: Improved Subjective: pt report he feel good, no respiratory distress, no SOB, no CP. pt had EGD today , will follow up. PT/OT recommended to [facility]. Plan pt d/c to [facility] tomorrow. Current Medications - Current Medications Current Medications: Active Medications Acetaminophen (Tylenol) 650 mg PO Q4HR PRN PRN Reason: Pain or Fever > 38C (100.4F) Last Admin: 06/06/17 20:30 Dose: 650 mg Albuterol/Ipratropium (Duoneb) 3 ml INH RTQID PRN PRN Reason: Shortness of Air/Wheezing Albuterol/Ipratropium (Duoneb) 3 ml INH RTBID [facility] Last Admin: 06/08/17 09:53 Dose: 3 ml Allopurinol (Zyloprim) 300 mg PO DAILY [facility] Last Admin: 06/08/17 09:42 Dose: 300 mg Atorvastatin Calcium (Lipitor) 20 mg PO QPM [facility] Last Admin: 06/07/17 20:08 Dose: 20 mg Citalopram Hydrobromide (Celexa) 20 mg PO DAILY [facility] Last Admin: 06/08/17 09:41 Dose: 20 mg Ferrous Sulfate (Feosol) 325 mg PO BIDWM [facility] Last Admin: 06/08/17 09:42 Dose: 325 mg Furosemide (Lasix Inj 40 Mg Vial) 40 mg IVP DAILY [facility] Last Admin: 06/08/17 09:42 Dose: 40 mg Heparin Sodium (Porcine) () 2,500 unit SUBQ BID [facility] Last Admin: 06/08/17 14:45 Dose: 2,500 unit Levothyroxine Sodium (Synthroid) 150 mcg PO QDAC [facility] Last Admin: 06/08/17 09:41 Dose: 150 mcg Mineral Oil (Cavilon) 1 applic TOP PRN PRN PRN Reason: Skin Care Nystatin (Mycostatin Cream) 1 applic TOP BID [facility] Last Admin: 06/08/17 14:46 Dose: 1 applic Pantoprazole Sodium (Protonix) 40 mg PO QDAC [facility] Last Admin: 06/08/17 09:41 Dose: 40 mg Polyethylene Glycol (Miralax) 17 gm PO DAILY [facility] Last Admin: 06/08/17 09:40 Dose: 17 gm Sodium Chloride (Normal Saline Flush 0.9%) 10 ml IVP PRN PRN PRN Reason: NEEDED PER PROVIDER ORDERS Last Admin: 06/06/17 09:17 Dose: 10 ml Sodium Chloride (Normal Saline Flush 0.9%) 10 ml IVP 0100,0900,1700 [facility] Last Admin: 06/08/17 09:42 Dose: 10 ml Furosemide [Furosemide] 20 mg PO DAILY 06/05/17 Allopurinol 300 mg PO DAILY 06/06/17 Citalopram [CeleXA] 20 mg PO DAILY 06/06/17 Ferrous Sulfate 325 mg PO DAILY 06/06/17 Levothyroxine Sodium 150 mcg PO DAILY 06/06/17 Simvastatin 20 mg PO QPM 06/06/17 Objective - Vital Signs/Intake & Output Reviewed Vital Signs: Yes Vital Signs: Vital Signs x48h Temp Pulse Pulse Resp BP BP Pulse Ox 06/08/17 15:31 36.6 C 68 20 134/61 H 94 06/08/17 15:08 36.5 C 76 18 128/62 100 06/08/17 11:00 36.3 C L 72 18 126/52 L 93 06/08/17 10:00 36.3 C L 65 18 129/63 94 06/08/17 09:53 65 20 06/08/17 09:32 74 95 06/08/17 09:00 36.4 C L 68 18 132/72 H 100 06/08/17 08:30 36.6 C 69 20 123/72 93 06/08/17 08:19 99 06/08/17 08:10 99 06/08/17 08:05 98 06/08/17 08:00 95 Intake & Output: Intake & Output 06/05/17 06/06/17 06/07/17 06/08/17 23:59 23:59 23:59 23:59 Intake Total 1922 1240 480 Output Total 100 550 775 650 Balance -100 1372 465 -170 - Objective General Appearance: positive: No acute distress, Alert. negative: Lethargic Eyes Bilateral: positive: Normal inspection, PERRL, No lid inflammation, Conjunctivae nml ENT: positive: ENT inspection nml, Pharynx nml, No signs of dehydration. negative: Purulent nasal drainage, Pharyngeal erythema, Oral lesions Neck: positive: Nml inspection, Thyroid nml, No JVD, Trachea midline. negative : Thyromegaly, Lymphadenopathy (R), Lymphadenopathy (L), Stiff neck, Carotid bruit, Swelling/bruising, Tracheal deviation Respiratory: positive: Chest non-tender, No respiratory distress. negative: Wheezes, Rales Cardiovascular: positive: Regular rate & rhythm, No murmur, No gallop. negative : Irregularly irregular, Extrasystoles, Tachycardia, Bradycardia, JVD present, Systolic murmur, Diastolic murmur, Friction rub Peripheral Pulses: 2+ Radial (R), 2+ Radial (L), 2+ Dorsalis pedis (R), 2+ Dorsalis pedis (L) Abdomen: positive: Non-tender, No organomegaly, Nml bowel sounds, No distention. negative: Tenderness, Guarding, Rebound Back: positive: Nml inspection. negative: CVA tenderness (R), CVA tenderness (L ) Skin: positive: Color nml, No rash, Warm, Dry. negative: Cyanosis, Diaphoresis , Pallor Extremities: positive: Non-tender, Full ROM, Nml appearance, No pedal edema. negative: Calf tenderness, Joint swelling, Whitley's sign/cords Neurologic/Psychiatric: positive: Sensation nml, Mood/affect nml. negative: Sensory loss, Facial droop, Slurred/abnml speech, Depressed mood/affect - Lab Results Fish Bones: 06/08/17 05:15 06/08/17 05:15 Other Labs: Lab Results x24hrs 06/08/17 06/08/17 06/08/17 Range/Units 05:15 05:15 05:15 WBC 7.1 (4.8-10.8) x10^3/uL RBC 3.31 L (4.70-6.10) 10^6/uL Hgb 8.8 L (14.0-18.0) g/dL Hct 28.5 L (42.0-52.0) % MCV 86.3 (80.0-94.0) fL MCH 26.5 L (27.0-31.0) pg MCHC 30.7 L (32.0-36.0) g/dL RDW 21.5 H (12.0-15.0) % Plt Count 175 (130-450) 10^3/uL MPV 7.2 L (7.4-11.4) fL Neut # 5.0 (1.5-6.6) 10^3/uL Lymph # 1.4 L (1.5-3.5) 10^3/uL Catron # 0.5 (0.0-1.0) 10^3/uL Eos # 0.1 (0.0-0.7) 10^3/uL Baso # 0.1 (0.0-0.1) 10^3/uL Absolute Nucleated RBC 0.01 x10^3/uL Nucleated RBC % 0.2 /100WBC Sodium 135 (135-145) mmol/L Potassium 3.4 L (3.5-5.0) mmol/L Chloride 103 (101-111) mmol/L Carbon Dioxide 27 (21-32) mmol/L Anion Gap 5.0 L (6-13) BUN 23 H (6-20) mg/dL Creatinine 1.5 H (0.6-1.2) mg/dL Estimated GFR (MDRD) 44 L (>89) Glucose 103 H (70-100) mg/dL Calcium 8.7 (8.5-10.3) mg/dL Phosphorus 3.2 (2.5-4.6) mg/dL Magnesium 1.6 L (1.7-2.8) mg/dL Total Bilirubin 1.0 (0.2-1.0) mg/dL AST 32 (10-42) IU/L ALT 17 (10-60) IU/L Alkaline Phosphatase 59 (42-121) IU/L B-Natriuretic Peptide 320 H (5-100) pg/mL Total Protein 6.6 L (6.7-8.2) g/dL Albumin 2.8 L (3.2-5.5) g/dL Globulin 3.8 (2.1-4.2) g/dL Albumin/Globulin Ratio 0.7 L (1.0-2.2) 06/07/17 Range/Units 19:20 WBC (4.8-10.8) x10^3/uL RBC (4.70-6.10) 10^6/uL Hgb 8.3 L (14.0-18.0) g/dL Hct 27.8 L (42.0-52.0) % MCV (80.0-94.0) fL MCH (27.0-31.0) pg MCHC (32.0-36.0) g/dL RDW (12.0-15.0) % Plt Count (130-450) 10^3/uL MPV (7.4-11.4) fL Neut # (1.5-6.6) 10^3/uL Lymph # (1.5-3.5) 10^3/uL Catron # (0.0-1.0) 10^3/uL Eos # (0.0-0.7) 10^3/uL Baso # (0.0-0.1) 10^3/uL Absolute Nucleated RBC x10^3/uL Nucleated RBC % /100WBC Sodium (135-145) mmol/L Potassium (3.5-5.0) mmol/L Chloride (101-111) mmol/L Carbon Dioxide (21-32) mmol/L Anion Gap (6-13) BUN (6-20) mg/dL Creatinine (0.6-1.2) mg/dL Estimated GFR (MDRD) (>89) Glucose (70-100) mg/dL Calcium (8.5-10.3) mg/dL Phosphorus (2.5-4.6) mg/dL Magnesium (1.7-2.8) mg/dL Total Bilirubin (0.2-1.0) mg/dL AST (10-42) IU/L ALT (10-60) IU/L Alkaline Phosphatase (42-121) IU/L B-Natriuretic Peptide (5-100) pg/mL Total Protein (6.7-8.2) g/dL Albumin (3.2-5.5) g/dL Globulin (2.1-4.2) g/dL Albumin/Globulin Ratio (1.0-2.2) Assessment/Plan - Problem List (1) Hypoxia Impression: (1) Hypoxia Conclusion/Plan: O2 sats at 100-94%. pt and his family continue to decline to have thoracentesis resolved. pt had 98%/96% sats on room air. No acute respiratory distress. continue closely vital monitor, PRN O2 supplement The patient has been attending physical therapy out patient since his right shoulder injury on 05/07/17 and was noted to be winded. Oxygen saturations were noted to be in the 70's per the patient's Evelyn and ED reports. The patient has required oxygen since that time. This is likely a combination of the patient being anemic, having ongoing pleural effusions, and new cardiomegaly seen by imaging. Plan: Continue oxygen supplementation. (2) Anemia Conclusion/Plan: stable, continue lab monitor after transfusion, pt's HGB is stable and continue going up continue H&H continue PPI surgeon plan to have EGD on tomorrow Pt's HGB is 6.9. transfusion of one unit of blood, caution of fluid overload. iron study indicate iron deficiency, resume home iron follow surgeon, pt hx of gastric ulcer add PPI The patient appears slightly jaundice and pale upon exam. The patient had a declining hemoglobin of ~7 upon admission. He was seen in the ED on 05/07/17 for his right shoulder injury and at that time his hemoglobin was in the 8 range. The patient's , Evelyn explains that she has doubled his iron supplement lately. Plan: General surgery, Dr. Hunter Cifuentes will see patient in AM to evaluate this. (3) Pacemaker Conclusion/Plan: stable rate The patient has an established pacemaker and is located in his left upper chest. Plan: Watch on telemetry overnight. (4) Hypothyroidism Conclusion/Plan: stable, continue levothyroxine Pt has elevated TSH, but normal T4 and slight lower T3, resume home levothyroxine 150 mcg. pt and his both had dementia, there may has medical non-compliance. The patient has a long standing history of this and is prescribed levothyroxine at home, a low dose of 25 mcg. It is unknown what his latest TSH was. Plan: Continue home meds and check a TSH in the AM. (5) Personal history of colon cancer Conclusion/Plan: The patient has a known history of colon cancer, and is now status post bowel resection and has an established right abdominal quadrant ostomy with light brown/green stool. The ED called after taking the admission to alert us of a + occult that was taken from his ostomy appliance. Evelyn, the patient's notes that the ostomy typically has small amounts of blood surrounding the device and she thinks this has caused the positive test. Plan: Will consult general surgery in regards to a possible GI bleed verses liver involvement as the patient is slightly jaundice. (6) bilateral large pleural effusion pt and his family continue to decline to have thoracentesis. pt's hemodynamically stable, continue monitor pt and his family decline thoracentesis now. pt is hemodynamical stable. closely monitor with vital, tele consult with surgeon, Dr. Hunter Cifuentes, will follow up consult with surgeon, will follow up. hx of pleural effusion, became worsening. it may be caused by right heart failure. It is bilateral pleural effusion, not unilateral. continue diuretics daily lab, vital monitor (7) severe pulmonary HTN and right heart pressure severe elevated RVSP 71 mmHG, right side of hear is large in ECHO. it may cause pt has large pleural effusion pt clinically improved, no obvious SOB, room air with sats of 96%/98% continue support continue vital monitor continue diuretics daily lab and vital monitor continue tele (8) dementia pt's daughter report pt refused to take shower at home, and both pt and his were dementia, and difficult to take care of their self consult with social work, possible replacement planning. neuro check continue to support
[2017-06-08] MEDS: ATORVASTATIN 10 MG TABLET PO SCH (20:35)
[2017-06-09] MEDS: SODIUM CHLORIDE FLUSH 0.9% 10 ML SYRINGE IVP SCH ×2 (00:58→09:09)
[2017-06-09] MEDS: LEVOTHYROXINE 75 MCG TABLET PO SCH (06:27)
[2017-06-09] MEDS: PANTOPRAZOLE 40 MG TABLET PO SCH (06:27)
[2017-06-09 07:42] VITALS: BP 114/83
[2017-06-09 08:50] LABS: BASOPHILS % (AUTO) 0.4 %; EOSINOPHILS # (AUTO) 0.1 10^3/uL (0.0-0.7); EOSINOPHILS % (AUTO) 2.8 %; HGB - HEMOGLOBIN 8.7 g/dL (14.0-18.0); LYMPHOCYTES # (AUTO) 1.2 10^3/uL (1.5-3.5); LYMPHOCYTES % (AUTO) 22.3 %; MEAN CORPUSCULAR HEMOGLOBIN 27.2 pg (27.0-31.0); MEAN CORPUSCULAR HGB CONC 31.3 g/dL (32.0-36.0); MEAN PLATELET VOLUME 6.8 fL (7.4-11.4); MONOCYTES # (AUTO) 0.5 10^3/uL (0.0-1.0); MONOCYTES % (AUTO) 9.3 %; NEUTROPHILS # (AUTO) 3.5 10^3/uL (1.5-6.6); NEUTROPHILS % (AUTO) 65.2 %; PLT - PLATELET COUNT 163 10^3/uL (130-450); RED BLOOD COUNT 3.18 10^6/uL (4.70-6.10); RED CELL DISTRIBUTION WIDTH 21.9 % (12.0-15.0); WHITE BLOOD COUNT 5.4 x10^3/uL (4.8-10.8)
[2017-06-09] MEDS: FERROUS SULFATE 325 MG TABLET PO SCH (08:58)
[2017-06-09] MEDS: ALLOPURINOL 100 MG TABLET PO SCH (08:59)
[2017-06-09] MEDS: CITALOPRAM 10 MG TABLET PO SCH (09:01)
[2017-06-09] MEDS: POLYETHYLENE GLYCOL 3350 17 GM PACKET PO SCH (09:04)
[2017-06-09] MEDS: FUROSEMIDE 40 MG/4 ML VIAL IVP SCH (09:06)
[2017-06-09 09:09] LABS: ALBUMIN 2.9 g/dL (3.2-5.5); ALBUMIN/GLOBULIN RATIO 0.7 (1.0-2.2); BILIRUBIN,TOTAL 1.3 mg/dL (0.2-1.0); CALCIUM 8.6 mg/dL (8.5-10.3); CREATININE 1.5 mg/dL (0.6-1.2); TOTAL PROTEIN 6.8 g/dL (6.7-8.2)
[2017-06-09] MEDS: IPRATROPIUM/ALBUTEROL 3 ML NEB INH SCH (09:11)
[2017-06-09] MEDS: HEPARIN 5,000 UNIT/ML VIAL SUBQ SCH (09:14)
--- NOTE | 2017-06-09 09:18 | PROVIDER PROGRESS NOTE ---
Assessment/Plan - Problem List (1) Anemia Qualifiers: Anemia type: iron deficiency Iron deficiency anemia type: chronic blood loss Qualified Code(s): D50.0 - Iron deficiency anemia secondary to blood loss (chronic) Assessment/Plan: Likely due to chronic gastric ulcer, probably due to NSAID use, pending pathology and H. Pylori testing. Rec: Stop NSAIDs if possible, high dose PPI therapy; consider f/u EGD in 2 months to document satisfactory healing if his health permits and pt desires. (3) Gastric ulcer Qualifiers: Gastric ulcer chronicity: chronic Gastric ulcer complication status: with hemorrhage Qualified Code(s): K25.4 - Chronic or unspecified gastric ulcer with hemorrhage Assessment/Plan: See above for iron deficiency anemia: hold NSAIDS, review path & H pylori testing when available, high dose PPI therapy; consider f/u EGD in 2 months to document healing. - Current Meds Current Meds: Current Medications Generic Name Dose Route Start Last Admin Trade Name Freq PRN Reason Stop Dose Admin Acetaminophen 650 mg 06/06/17 09:31 06/06/17 20:30 Tylenol PO 650 mg Q4HR PRN Administration Pain or Fever > 38C (100.4F) Albuterol/Ipratropium 3 ml 06/05/17 22:00 06/09/17 09:11 Duoneb INH 3 ml RTBID [facility] Administration Allopurinol 300 mg 06/07/17 09:00 06/09/17 08:59 Zyloprim PO 300 mg DAILY [facility] Administration Atorvastatin Calcium 20 mg 06/06/17 21:00 06/08/17 20:35 Lipitor PO 20 mg QPM [facility] Administration Citalopram Hydrobromide 20 mg 06/07/17 09:00 06/09/17 09:01 Celexa PO 20 mg DAILY [facility] Administration Ferrous Sulfate 325 mg 06/06/17 09:00 06/09/17 08:58 Feosol PO 325 mg BIDWM [facility] Administration Furosemide 40 mg 06/05/17 22:00 06/08/17 09:42 Lasix Inj 40 Mg Vial IVP 40 mg DAILY [facility] Administration Heparin Sodium (Porcine) 2,500 unit 06/08/17 15:00 06/08/17 20:34 SUBQ 2,500 unit BID [facility] Administration Levothyroxine Sodium 150 mcg 06/07/17 07:00 06/09/17 06:27 Synthroid PO 150 mcg QDAC [facility] Administration Nystatin 1 applic 06/08/17 15:00 06/08/17 20:51 Mycostatin Cream TOP 1 applic BID [facility] Administration Pantoprazole Sodium 40 mg 06/06/17 16:00 06/09/17 06:27 Protonix PO 40 mg QDAC [facility] Administration Polyethylene Glycol 17 gm 06/06/17 09:00 06/09/17 09:04 Miralax PO Not Given DAILY [facility] Sodium Chloride 10 ml 06/05/17 17:19 06/06/17 09:17 Normal Saline Flush 0.9% IVP 10 ml PRN PRN Administration NEEDED PER PROVIDER ORDERS Sodium Chloride 10 ml 06/06/17 01:00 06/09/17 00:58 Normal Saline Flush 0.9% IVP 10 ml 0100,0900,1700 [facility] Administration - Lab Result Fish Bone Diagrams: 06/09/17 08:33 06/09/17 08:33 - Additional Planning Condition/Complexity: Improved Plan Discussed with:: Patient, Spouse Time Spent: 15-30 minutes Subjective - Subjective Patient Reports: Feeling Better, Resting Comfortably, No Complaints Nursing Reports: No Complaints (appears in NAD) Objective Vital Signs: Vital Signs - 24 hr 06/08/17 06/08/17 06/08/17 09:32 09:53 10:00 Temperature 36.3 C L Heart Rate 65 Heart Rate [ 74 65 Brachial] Respiratory 20 18 Rate Blood Pressure 129/63 [Left Brachial artery] Blood Pressure [Right Brachial artery] O2 Saturation 95 94 06/08/17 06/08/17 06/08/17 11:00 15:08 15:31 Temperature 36.3 C L 36.5 C 36.6 C Heart Rate Heart Rate [ 72 76 68 Brachial] Respiratory 18 18 20 Rate Blood Pressure 126/52 L 128/62 [Left Brachial artery] Blood Pressure 134/61 H [Right Brachial artery] O2 Saturation 93 100 94 06/08/17 06/08/17 06/08/17 20:15 20:55 23:55 Temperature 36.4 C L 36.6 C Heart Rate 62 Heart Rate [ 72 78 Brachial] Respiratory 24 18 18 Rate Blood Pressure [Left Brachial artery] Blood Pressure 143/69 H 124/61 [Right Brachial artery] O2 Saturation 95 95 06/09/17 07:38 Temperature 36.7 C Heart Rate Heart Rate [ 75 Brachial] Respiratory 16 Rate Blood Pressure 114/83 H [Left Brachial artery] Blood Pressure [Right Brachial artery] O2 Saturation 95 Oxygen O2 Source Room air I&O (Last 24 Hrs): Intake and Output Totals x24h 06/07/17 06/08/17 06/09/17 23:59 23:59 23:59 Intake Total 1240 820 450 Output Total 775 1250 550 Balance 465 -430 -100 General: Alert, Cooperative, No acute distress - Results Results: Laboratory Results WBC 5.4 x10^3/uL (4.8-10.8) 06/09/17 08:33 RBC 3.18 10^6/uL (4.70-6.10) L 06/09/17 08:33 Hgb 8.7 g/dL (14.0-18.0) L 06/09/17 08:33 Hct 27.7 % (42.0-52.0) L 06/09/17 08:33 MCV 87.0 fL (80.0-94.0) 06/09/17 08:33 MCH 27.2 pg (27.0-31.0) 06/09/17 08:33 MCHC 31.3 g/dL (32.0-36.0) L 06/09/17 08:33 RDW 21.9 % (12.0-15.0) H 06/09/17 08:33 Plt Count 163 10^3/uL (130-450) 06/09/17 08:33 MPV 6.8 fL (7.4-11.4) L 06/09/17 08:33 Neut # 5.0 10^3/uL (1.5-6.6) 06/08/17 05:15 Lymph # 1.4 10^3/uL (1.5-3.5) L 06/08/17 05:15 Granite # 0.5 10^3/uL (0.0-1.0) 06/08/17 05:15 Eos # 0.1 10^3/uL (0.0-0.7) 06/08/17 05:15 Baso # 0.1 10^3/uL (0.0-0.1) 06/08/17 05:15 Absolute Nucleated RBC 0.01 x10^3/uL 06/08/17 05:15 Nucleated RBC % 0.2 /100WBC 06/08/17 05:15 Manual Slide Review Indicated 06/09/17 08:33 Platelet Estimate NORMAL (130-450,000) (NORMAL) 06/06/17 05:01 Platelet Morphology NORMAL APPEARANCE (NORMAL) 06/06/17 05:01 RBC Morph Micro Appear 2+ ANISOCYTOSIS (NORMAL) 2+ POIKILOCYTOSIS (NORMAL) 2 + HYPOCHROMASIA (NORMAL) 06/05/17 15:49 RBC Morph Micro Appear 2+ ANISOCYTOSIS (NORMAL) 2+ POIKILOCYTOSIS (NORMAL) 2 + HYPOCHROMASIA (NORMAL) 06/05/17 15:49 RBC Morph Micro Appear 2+ ANISOCYTOSIS (NORMAL) 2+ POIKILOCYTOSIS (NORMAL) 1 + HYPOCHROMASIA (NORMAL) 1+ OVALOCYTES (NORMAL) 06/06/17 05:01 RBC Morph Micro Appear 2+ ANISOCYTOSIS (NORMAL) 2+ POIKILOCYTOSIS (NORMAL) 1 + HYPOCHROMASIA (NORMAL) 1+ OVALOCYTES (NORMAL) 06/06/17 05:01 RBC Morph Micro Appear 2+ ANISOCYTOSIS (NORMAL) 2+ POIKILOCYTOSIS (NORMAL) 1 + HYPOCHROMASIA (NORMAL) 1+ OVALOCYTES (NORMAL) 06/06/17 05:01 RBC Morph Micro Appear 2+ ANISOCYTOSIS (NORMAL) 2+ POIKILOCYTOSIS (NORMAL) 1 + HYPOCHROMASIA (NORMAL) 1+ OVALOCYTES (NORMAL) 06/06/17 05:01 Sodium 135 mmol/L (135-145) 06/09/17 08:33 Potassium 3.5 mmol/L (3.5-5.0) 06/09/17 08:33 Chloride 100 mmol/L (101-111) L 06/09/17 08:33 Carbon Dioxide 27 mmol/L (21-32) 06/09/17 08:33 Anion Gap 8.0 (6-13) 06/09/17 08:33 BUN 21 mg/dL (6-20) H 06/09/17 08:33 Creatinine 1.5 mg/dL (0.6-1.2) H 06/09/17 08:33 Estimated GFR (MDRD) 44 (>89) L 06/09/17 08:33 Glucose 131 mg/dL (70-100) H 06/09/17 08:33 Glycated Hemoglobin 5.3 % (4.6-6.2) 06/06/17 05:01 Estim Average Glucose 105 (70-100) H 06/06/17 05:01 Calcium 8.6 mg/dL (8.5-10.3) 06/09/17 08:33 Phosphorus 3.2 mg/dL (2.5-4.6) 06/08/17 05:15 Magnesium 1.6 mg/dL (1.7-2.8) L 06/08/17 05:15 Iron 20 ug/dL (45-182) L 06/06/17 05:01 TIBC 367 ug/dL (250-450) 06/06/17 05:01 % Saturation 5 % (20-50) L 06/06/17 05:01 Transferrin 262 mg/dL (180-329) 06/06/17 05:01 Total Bilirubin 1.3 mg/dL (0.2-1.0) H 06/09/17 08:33 AST 32 IU/L (10-42) 06/09/17 08:33 ALT 17 IU/L (10-60) 06/09/17 08:33 Alkaline Phosphatase 58 IU/L (42-121) 06/09/17 08:33 Troponin I 0.05 ng/mL (<0.49) 06/06/17 05:01 B-Natriuretic Peptide 320 pg/mL (5-100) H 06/08/17 05:15 Total Protein 6.8 g/dL (6.7-8.2) 06/09/17 08:33 Albumin 2.9 g/dL (3.2-5.5) L 06/09/17 08:33 Globulin 3.9 g/dL (2.1-4.2) 06/09/17 08:33 Albumin/Globulin Ratio 0.7 (1.0-2.2) L 06/09/17 08:33 Triglycerides 54 mg/dL (-149) 06/06/17 05:01 Cholesterol 90 mg/dL (-199) 06/06/17 05:01 LDL Cholesterol, Calc 48 mg/dL (-129) 06/06/17 05:01 VLDL Cholesterol 11 mg/dL 06/06/17 05:01 HDL Cholesterol 31 mg/dL (60-) L 06/06/17 05:01 LDL/HDL Ratio 1.5 (<3.6) 06/06/17 05:01 Cholesterol/HDL Ratio 2.9 (<5.0) 06/06/17 05:01 Amylase 44 U/L (28-100) 06/05/17 20:19 Lipase 47 U/L (22-51) 06/05/17 20:19 TSH 12.56 uIU/mL (0.34-5.60) H 06/05/17 20:30 Free T4 1.17 ng/dL (0.58-1.64) 06/06/17 05:01 Free T3 pg/mL 1.85 pg/mL (2.5-3.9) L 06/06/17 05:01 Blood Type AB POSITIVE 06/05/17 16:55 Blood Type Recheck AB POSITIVE 06/05/17 15:49 Antibody Screen NEGATIVE 06/05/17 16:55 Crossmatch IS Only See Detail 06/05/17 16:55
[2017-06-09] MEDS: NYSTATIN CREAM 15 GM TUBE TOP SCH (10:06)
[2017-06-09] MEDS ORDERED: ZINC OXIDE 20% OINT 28.35 GM TUBE TOP PRN (10:10)
--- NOTE | 2017-06-09 11:56 | Discharge Plan ---
"Discharge Plan for SNF / [facility] - DC Plan and Transition Orders Disposition: 03 SNF DC/Xfer Condition: Poor SNF Transition Orders: Admit to: [[facility]] under the care of [Doctor Regina Bartholomew] Discharge Diagnosis: [anemia, gastric ulcer, bilateral large pleural effusion, pacemaker, pulmonary hypertension, right heart failure, hx of colon caner with ostomy, hard hearing/ dementia, CKD] Medicare Certification: I certify that Post Hospital correction care is medically necessary on a continuing basis for any of the conditions for which she/he is receiving care during hospitalization. Notify PCP of admission and forward orders to primary provider for signature. Weight on admission and [90.5 kg]. Call PCP immediately if weight increases by [4] pounds or if patient develops dyspnea, chest pain/tightness or edema. House Bowel Program: [Yes] If no BM after 2 days, nurse may give M.O.M. 30ml PO PRN and /or ducolax Supp 1 MO and /or MARYA 250mg P.O., and/or senna 1-2 tabs PO. On day 3 nurse may give repeat above order until residents constipation is resolved. Immunizations: Annual Influenza Vaccine: [Yes]. (between Oct 07 and May 06.) Unless allergy or already given Two-Step PPD: [Yes] per [facility] 248-235 or appropriate documentation of approved exceptions Treatments & Other Orders: [May follow up admission provider at pt's arrival to the facility. Advise to rise pt's bed at 30-45 degree since pt has large pleural effusion, at this time pt and his family decline for thoracentesis or therapeutical tapping. EGD was done to evaluation of anemia, it reveals pt has gastric ulcer, advise pt has high dose of PPI, hold NSAIDs, consider f/u EGD in 2 months to document satisfactory hearing if pt's health permits and pt desires. ] Oxygen Orders: [PRN] Lab Tests or X-Rays Orders: [May have CXR as clinic indicated to evaluate the pleural effusion, CBC to evaluate anemia status as clinic indicated.] Orthopedic Orders: [n]. Medications: PLEASE REFER TO THE DISCHARGE MEDICATION LIST. Insulin Orders? [No] Diagnosis: Diabetes Initiate hypo and hyperglycemia protocols for BG <70 and BG >375. May check BG prn for signs/symptoms of dysglycemia. Frequency of BG checks: [AC/Meal/HS] Basal Insulin: [] Lantus 100 units / ml inject subq as follows: [] [] Other: [] Correction Insulin: - Select the type of insulin below [Choose: Novolog/Humalog]100 units /ml insulin inject subq per orders indicate below [] LOW DOSE [] MODERATE DOSE [] MODERATE/HIGH DOSE [] HIGH DOSE GB UNITS GB UNITS GB UNITS GB UNITS 61-140 0 UNITS 61-140 0 UNITS 61-140 0 UNITS 61-140 0 UNITS 141-175 1 UNITS 141-175 1 UNITS 141-175 2 UNITS 141-175 3 UNITS 176-225 2 UNITS 176-225 3 UNITS 176-225 4 UNITS 176-225 5 UNITS 226-275 3 UNITS 226-275 5 UNITS 226-275 6 UNITS 226-275 7 UNITS 276-325 4 UNITS 276-325 7 UNITS 276-325 8 UNITS 276-325 9 UNITS 326-375 5 UNITS 326-375 9 UNITS 326-375 10 UNITS 326-375 11 UNITS >375 CONTACT MD >375 CONTACT MD >375 CONTACT MD >375 CONTACT MD Custom Dosing: [Choose: None/Novolog/Humalog] 100 units/ml Insulin inject subq as follows: GB Units 61-140 [] Units 141-175 [] Units 176-225 [] Units 226-275 [] Units 276-325 []Units 326-375 [] Units >375 Contact MD Allergies and Adverse Reactions: Allergies Allergy/AdvReac Type Severity Reaction Status Date / Time No Known Drug Allergies Allergy Verified 04/20/17 17:52 - Medications New Prescriptions: Ipratropium/Albuterol [Duoneb] 3 ml INH RTQID PRN #15 neb PRN Reason: Shortness Of Air/Wheezing Pantoprazole [Protonix] 40 mg PO BID #10 tablet - Diet Type: Geriatric Texture: Regular Liquids: Thin May have monthly special meal: Yes - Therapies | Activity Therapy: Evaluation | Treat if indicated: PT, OT Rehabilitation Potential: Maximize functional status Activity: Activity as Tolerated Weight Bearing: Full Weight Additional Instructions: May follow up admission provider at pt's arrival to the facility. Advise to rise pt's bed at 30-45 degree since pt has large pleural effusion, at this time pt and his family decline for thoracentesis or therapeutical tapping. EGD was done to evaluation of anemia, it reveals pt has gastric ulcer, advise pt has high dose of PPI, hold NSAIDs, consider f/u EGD in 2 months to document satisfactory hearing if pt's health permits and pt desires."
--- NOTE | 2017-06-09 12:31 | DISCHARGE SUMMARY ---
Discharge Summary Discharge Date: 06/09/17 Discharging Provider: JIMENEZ Primary Care Provider: Dr. Polo Suarez Condition at Discharge: Poor Discharge Disposition: SNF DC/Xfer Discharge Facility Name: [facility] - DIAGNOSES Admission Diagnoses: (1) Hypoxia (2) Anemia (3) Pacemaker (4) Hypothyroidism (5) Personal history of colon cancer (8) Elevated TSH Discharge Diagnoses with Status of Each Condition: (1) Hypoxia resolved. Pt has stable 95% Sats of O2 on room air. No SOB, no respiratory distress. (2) Anemia Pt has one unit blood transfusion. HGB is stable now. Iron deficiency. Iron is prescribed to pt. (3) Pacemaker stable (4) Hypothyroidism elevated TSH, pt has medical non-compliance issue per pt's daughter report. continue home Levothyroxine, continue to be managed by PCP (5) Personal history of colon cancer CT of abdomen reveals no significant acute finding (6) bilateral large pleural effusion discuss with pt and pt's family about the risk and benefit of thoracentesis and therapeutic tapping. pt and pt's and daughter continue to decline thoracentesis or therapeutic tapping. Pt does not present respiratory distress, pt has stable 95% Sats of O2 on room air. I also discussed with our senior energy consultant surgeon Dr. Hunter Cifuentes, he agree the discharge plan and respect the pt and his family's decision. I also advise pt and his family, should pt's symptoms return or worsen, may present ER or call 911 for help. (7) severe pulmonary HTN and right heart pressure discuss with pt and his family, ECHO reveals pt has severe pulmonary HTN and high right heart pressure. 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 Pt is advised to hold NSAIDs , and see Dr Hunter Cifuentes at 2 months. Pt is prescribed high dosage of PPI, - HPI History of Present Illness: refer from Mrs Britt's HPI 06/05/17 for pt as the following: Long Nuno is an ill appearing, slightly jaundice 87-year old male with an extensive past medical history including colon cancer with bowel resection, status post ostomy, abdominal hernia, status post cardiac pacemaker, hypertension, hyperlipidemia, depression, hypothyroidism, recent right shoulder injury, anemia, and chronic hearing loss. The patient's Evelyn is present and helped with the admission as the patient is profoundly NOORVIK and hypoxic. The patient came to the ED today after attending a physical therapy session for his recent shoulder injury in which he dislocated it. The therapist found him to be easily winded, checked an oxygen saturation and the patient was found to be "in the 70's" confirmed by both the patient's Evelyn and ED staff. Once in the ED labs showed a worsening anemia with a hemoglobin of 7.6 and Hct of 25.4, mild hyponatremia of 133, elevated BUN of 23 , elevated creatinine of 1.4, a decreased GFR of 48, and a negative troponin. Imaging revealed a worsening cardiomegaly, bilateral pleural effusions associated atelectasis verses infiltrates. - CONSULTS | PROCEDURES Consultations: Dr. Hunter Cifuentes Procedures: EGD - HOSPITAL COURSE Hospital Course: pt was admitted for hypoxia. pt was found to have large pleural effusion and anemia. pt and his family decline to have further intervention. Pt has hemodynamically stable at this time, no acute respiratory distress, room air with stable 95% sats, Pt had EGD which found pt had ulcer. high dosage of PPI is prescribed to pt. pt is advised to hold NSAIDs. ECHO reveals has high RVSP, severe right heart pressure. - ALLERGIES Allergies/Adverse Reactions: Allergies Allergy/AdvReac Type Severity Reaction Status Date / Time No Known Drug Allergies Allergy Verified 04/20/17 17:52 - MEDICATIONS Home Medications: Ambulatory Orders Medication Instructions Recorded Confirmed Furosemide 20 mg PO DAILY 06/05/17 06/05/17 Allopurinol 300 mg PO DAILY 06/06/17 06/06/17 Citalopram [CeleXA] 20 mg PO DAILY 06/06/17 06/06/17 Ferrous Sulfate 325 mg PO DAILY 06/06/17 06/06/17 Levothyroxine Sodium 150 mcg PO DAILY 06/06/17 06/06/17 Simvastatin 20 mg PO QPM 06/06/17 06/06/17 Ipratropium/Albuterol [Duoneb] 3 ml INH RTQID PRN #15 neb 06/09/17 Pantoprazole [Protonix] 40 mg PO BID #10 tablet 06/09/17 - PHYSICAL EXAM AT DISCHARGE General Appearance: positive: No acute distress, Alert. negative: Lethargic Eyes Bilateral: positive: Normal inspection, PERRL, No lid inflammation, Conjunctivae nml ENT: positive: ENT inspection nml, Pharynx nml, No signs of dehydration. negative: Purulent nasal drainage, Pharyngeal erythema, Oral lesions Neck: positive: Nml inspection, Thyroid nml, No JVD, Trachea midline. negative : Thyromegaly, Lymphadenopathy (R), Lymphadenopathy (L), Stiff neck, Carotid bruit, Swelling/bruising, Tracheal deviation Respiratory: positive: Chest non-tender, No respiratory distress, Breath sounds nml. negative: Wheezes, Rales, Rhonchi Cardiovascular: positive: Regular rate & rhythm, No murmur, No gallop. negative : Irregularly irregular, Extrasystoles, Tachycardia, Bradycardia, Systolic murmur, Diastolic murmur Peripheral Pulses: positive: 2+ Abdomen: positive: Non-tender, No organomegaly, Nml bowel sounds, No distention. negative: Tenderness, Guarding, Rebound Back: positive: Nml inspection. negative: CVA tenderness (R), CVA tenderness (L ) Skin: positive: Color nml, No rash, Warm, Dry. negative: Cyanosis, Diaphoresis , Pallor Extremities: positive: Non-tender, Full ROM, Nml appearance. negative: Calf tenderness, Joint swelling, Whitley's sign/cords Neurologic/Psychiatric: positive: Sensation nml, Mood/affect nml. negative: Weakness, Sensory loss, Facial droop, Slurred/abnml speech, Depressed mood/ affect - LABS Result Diagrams: 06/09/17 08:33 06/09/17 08:33 - FOLLOW UP Follow Up: May follow up admission provider at pt's arrival to the facility. Advise to rise pt's bed at 30-45 degree since pt has large pleural effusion, at this time pt and his family decline for thoracentesis or therapeutical tapping. EGD was done to evaluation of anemia, it reveals pt has gastric ulcer, advise pt has high dose of PPI, hold NSAIDs, consider f/u EGD in 2 months to document satisfactory hearing if pt's health permits and pt desires May have CXR as clinic indicated to evaluate the pleural effusion, CBC to evaluate anemia status as clinic indicated. pt and family are advise, should symptoms return or worsen, present ER or call 911 for help. - TIME SPENT Time Spent in Discharge (Minutes): 55
[2017-06-09] MEDS ORDERED: PANTOPRAZOLE 40 MG TABLET PO SCH (16:00)
== END 2017-06-09 14:40 | DRG 378 ==
LOC: ED 15:12 → MS2 17:19
PROVIDERS: ADMIT Nurse Practitioner; ATTEND Nurse Practitioner Gerontology
PROC: 30253N1 (ICD-10-PCS; 2017-06-06)
PROC: 0DB68ZX Excision of Stomach, Via Natural or Artificial Opening Endoscopic, Diagnostic (ICD-10-PCS; principal; 2017-06-08 07:30)
DX: K25.4 Chronic or unspecified gastric ulcer with hemorrhage (principal); J90 Pleural effusion, not elsewhere classified; E87.1 Hypo-osmolality and hyponatremia; N28.9 Disorder of kidney and ureter, unspecified; K92.2 Gastrointestinal hemorrhage, unspecified; D64.9 Anemia, unspecified; I48.91 Unspecified atrial fibrillation; D50.9 Iron deficiency anemia, unspecified; E78.00 Pure hypercholesterolemia, unspecified; E03.9 Hypothyroidism, unspecified; I27.29 Other secondary pulmonary hypertension; I50.810 Right heart failure, unspecified; B96.81 Helicobacter pylori [H. pylori] as the cause of diseases classified elsewhere; F03.90 Unspecified dementia, unspecified severity, without behavioral disturbance, psychotic disturbance, mood disturbance, and anxiety; I13.10 Hypertensive heart and chronic kidney disease without heart failure, with stage 1 through stage 4 chronic kidney disease, or unspecified chronic kidney disease; J44.9 Chronic obstructive pulmonary disease, unspecified; E78.5 Hyperlipidemia, unspecified; F32.9 Major depressive disorder, single episode, unspecified; S43.004D Unspecified dislocation of right shoulder joint, subsequent encounter; S80.12XA Contusion of left lower leg, initial encounter; N40.1 Benign prostatic hyperplasia with lower urinary tract symptoms; N39.498 Other specified urinary incontinence; R35.0 Frequency of micturition; R35.1 Nocturia; H91.90 Unspecified hearing loss, unspecified ear; H54.7 Unspecified visual loss; M19.90 Unspecified osteoarthritis, unspecified site; R53.83 Other fatigue; R26.9 Unspecified abnormalities of gait and mobility; Z66 Do not resuscitate; Z96.653 Presence of artificial knee joint, bilateral; Z79.82 Long term (current) use of aspirin; Z79.899 Other long term (current) drug therapy; Z95.0 Presence of cardiac pacemaker; Z93.3 Colostomy status; Z85.038 Personal history of other malignant neoplasm of large intestine; Z87.891 Personal history of nicotine dependence; Z90.49 Acquired absence of other specified parts of digestive tract
CPT/HCPCS: 36415; 71045; 71275; 74177; 80048; 80053; 80061; 82150; 82270; 83036; 83540; 83690; 83721; 83735; 83880; 84100; 84439; 84443; 84466; 84481; 84484; 85014; 85018; 85025; 86850; 86900; 86901; 86920; 87081; 88305; 93005; 93306; 94640; 96365; 99284

== ENCOUNTER 2017-07-29 10:24 | Inpatient (IN) | END 2017-07-31 15:13 | disposition home or self-care (01) | DRG 378 ==

== ENCOUNTER 2017-08-16 16:30 | Outpatient (CLI) | payer OTHER, MEDICARE | END 2017-08-16 16:31 | disposition critical access hospital (66) | LOC: EMS 16:30 | PROVIDERS: ATTEND Surgery | DX: M25.522 Pain in left elbow (principal); R42 Dizziness and giddiness; W18.39XA Other fall on same level, initial encounter; Y92.480 Sidewalk as the place of occurrence of the external cause | CPT/HCPCS: A0425; A0427 ==

== ENCOUNTER 2017-08-16 16:37 | Emergency (ER) | payer OTHER, MEDICARE ==
[2017-08-16] MEDS ORDERED: BACITRACIN OINT TOP STA (16:59)
--- NOTE | 2017-08-16 17:28 | XRAY Report ---
Procedure Date: 08/16/2017 Accession Number: [id number] / [id number] Procedure: XR - Elbow 2 View LT CPT Code: FULL RESULT: EXAM: LEFT ELBOW RADIOGRAPHY EXAM DATE: 08/16/2017 05:01 PM. CLINICAL HISTORY: All. Elbow abrasion. COMPARISON: None. TECHNIQUE: 2 views. FINDINGS: Bones: No traumatic or destructive bone abnormalities. Olecranon enthesophyte noted. Joints: Normal. No effusion. No subluxation. Soft Tissues: Unremarkable. IMPRESSION: No acute bony abnormality or joint effusion. RADIA
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
[2017-08-16 18:04] VITALS: BP 114/62
== END 2017-08-16 18:06 | disposition home or self-care (01) ==
LOC: EDUNIT# → EDBD → ED 16:37
DX: S50.312A Abrasion of left elbow, initial encounter (principal); W18.30XA Fall on same level, unspecified, initial encounter; Y92.481 Parking lot as the place of occurrence of the external cause; I11.0 Hypertensive heart disease with heart failure; I50.9 Heart failure, unspecified; E78.00 Pure hypercholesterolemia, unspecified; E03.9 Hypothyroidism, unspecified; Z96.659 Presence of unspecified artificial knee joint; Z95.0 Presence of cardiac pacemaker
CPT/HCPCS: 73070; 99283; A9270

== ENCOUNTER 2017-09-28 06:54 | Day surgery (SDC) | payer MEDICARE ==
[~2017-09-28 06:54] MED LIST: ETOMIDATE 40 MG/20 ML VIAL IVP ONE; LIDOCAINE-MPF 2% 5 ML VIAL IM ONE; PROPOFOL 200 MG/20 ML VIAL IVP ONE
[2017-09-28] MEDS ORDERED: LACTATED RINGERS 1,000 ML IV ONE (07:27)
--- NOTE | 2017-09-28 08:00 | ANESTHESIA ---
Pre-Anesthesia VS, & Labs - Diagnosis history of gastric ulcer - Procedure upper endoscopy Vital Signs: Temp Pulse Resp BP Pulse Ox 36.2 C L 20 123/60 100 09/28/17 07:15 09/28/17 07:15 09/28/17 07:15 09/28/17 07:15 HR 60 Height 5 ft 10 in Weight (kg) 98 kg Body Mass Index 23.3 Home Medications and Allergies Home Medications: Ambulatory Orders Medication Instructions Recorded Confirmed Allopurinol 300 mg PO DAILY 06/06/17 09/28/17 Ferrous Sulfate 325 mg PO DAILY 06/06/17 09/28/17 Levothyroxine Sodium 175 mcg PO QDAC 06/06/17 09/28/17 Simvastatin 20 mg PO QPM 06/06/17 09/28/17 Citalopram Hydrobromide 20 mg PO DAILY 07/29/17 09/28/17 [Citalopram HBr] Furosemide 80 mg PO BIDDIURETIC 07/29/17 09/28/17 Potassium Chloride 40 meq PO BIDWM 07/29/17 09/28/17 Allergies/Adverse Reactions: Allergies Allergy/AdvReac Type Severity Reaction Status Date / Time No Known Drug Allergies Allergy Verified 09/28/17 07:28 Anes History & Medical History - Medical History Cardiovascular: reports: Congestive heart failure, Hypertension, High cholesterol Pulmonary: reports: COPD, Sleep apnea, CPAP use, Other (pulmonary HTN) Gastrointestinal: reports: GERD, GI bleed, Ulcers, Colon polyps, Chronic diarrhea Urinary: reports: Benign prostate hypertrophy, Incontinence, Nocturia, Frequency Musculoskeletal: reports: Osteoarthritis, Fatigue Endocrine/Autoimmune: reports: HyPOthyroidism Skin: reports: Other Smoking Status: Never smoker - Surgical History General: Bowel surgery, Colonoscopy, EGD, Other Cardiothoracic: Pacemaker Orthopedic: Knee replacement Results - Other Other Results/Comments: reviewed past anesthesia record from last EGD Exam Dental: Dentures full Upper, Dentures full Lower Mouth Openin Fingerbreadth Neck Mobility: Reduced Mallampati classification: III Thyromental Distance: greater than 6 cm Respiratory: Lungs clear Cardiovascular: Regular rate, Normal S1, Normal S2 Mental/Cognitive Status: Alert/Oriented X3 Cognitive Status: Within normal limits Plan Anesthesia Type: MAC Consent for Procedure(s) Verified and Reviewed: Yes Code Status: Attempt Resuscitation ASA classification: 3-Severe systemic disease Is this case an emergency?: No
[2017-09-28 09:49] VITALS: BP 134/72
== END 2017-09-28 06:55 | disposition home or self-care (01) ==
LOC: SDS 06:54
PROVIDERS: ATTEND Internal Medicine Gastroenterology
PROC: 0DB78ZX Excision of Stomach, Pylorus, Via Natural or Artificial Opening Endoscopic, Diagnostic (ICD-10-PCS; principal; 2017-09-28 08:30)
DX: K29.50 Unspecified chronic gastritis without bleeding (principal); K21.9 Gastro-esophageal reflux disease without esophagitis; Z86.19 Personal history of other infectious and parasitic diseases; G47.30 Sleep apnea, unspecified; I11.0 Hypertensive heart disease with heart failure; I50.9 Heart failure, unspecified; Z95.0 Presence of cardiac pacemaker
CPT/HCPCS: 43239; 87081; J7120

== ENCOUNTER 2018-01-21 03:30 | Outpatient (CLI) | payer OTHER, MEDICARE ==
[2018-01-21 08:29] LABS: CALCIUM 8.8 mg/dL (8.5-10.3); CREATININE 1.7 mg/dL (0.6-1.2)
[2018-01-21 08:40] LABS: BASOPHILS # (AUTO) 0.1 10^3/uL (0.0-0.1); BASOPHILS % (AUTO) 1.3 %; EOSINOPHILS # (AUTO) 0.1 10^3/uL (0.0-0.7); LYMPHOCYTES # (AUTO) 0.8 10^3/uL (1.5-3.5); LYMPHOCYTES % (AUTO) 14.4 %; MEAN CORPUSCULAR HEMOGLOBIN 33.8 pg (27.0-31.0); MEAN CORPUSCULAR VOLUME 105.5 fL (80.0-94.0); MEAN PLATELET VOLUME 9.3 fL (7.4-11.4); MONOCYTES # (AUTO) 0.6 10^3/uL (0.0-1.0); NEUTROPHILS # (AUTO) 4.1 10^3/uL (1.5-6.6); NEUTROPHILS % (AUTO) 72.3 %; PLT - PLATELET COUNT 79 10^3/uL (130-450); RED BLOOD COUNT 3.27 10^6/uL (4.70-6.10); RED CELL DISTRIBUTION WIDTH 16.1 % (12.0-15.0); WHITE BLOOD COUNT 5.7 x10^3/uL (4.8-10.8)
== END 2018-01-21 23:59 | disposition home or self-care (01) ==
LOC: LAB.R 03:30
PROVIDERS: ATTEND Family Medicine
DX: I50.33 Acute on chronic diastolic (congestive) heart failure (principal); D64.9 Anemia, unspecified
CPT/HCPCS: 80048; 85025

== ENCOUNTER 2018-01-23 08:00 | Outpatient (CLI) | payer MEDICARE ==
[2018-01-23 15:25] LABS: BASOPHILS % (AUTO) 0.1 %; EOSINOPHILS # (AUTO) 0.1 10^3/uL (0.0-0.7); EOSINOPHILS % (AUTO) 1.2 %; HGB - HEMOGLOBIN 11.5 g/dL (14.0-18.0); LYMPHOCYTES # (AUTO) 0.7 10^3/uL (1.5-3.5); LYMPHOCYTES % (AUTO) 8.8 %; MEAN CORPUSCULAR HEMOGLOBIN 33.9 pg (27.0-31.0); MEAN CORPUSCULAR HGB CONC 32.4 g/dL (32.0-36.0); MEAN CORPUSCULAR VOLUME 104.6 fL (80.0-94.0); MEAN PLATELET VOLUME 9.9 fL (7.4-11.4); MONOCYTES # (AUTO) 0.4 10^3/uL (0.0-1.0); MONOCYTES % (AUTO) 5.8 %; NEUTROPHILS # (AUTO) 6.3 10^3/uL (1.5-6.6); NEUTROPHILS % (AUTO) 84.1 %; PLT - PLATELET COUNT 79 10^3/uL (130-450); RED BLOOD COUNT 3.39 10^6/uL (4.70-6.10); RED CELL DISTRIBUTION WIDTH 16.3 % (12.0-15.0); WHITE BLOOD COUNT 7.5 x10^3/uL (4.8-10.8)
[2018-01-23 15:51] LABS: ALBUMIN 3.2 g/dL (3.2-5.5); ALBUMIN/GLOBULIN RATIO 0.8 (1.0-2.2); CALCIUM 9.4 mg/dL (8.5-10.3); CREATININE 1.6 mg/dL (0.6-1.2); TOTAL PROTEIN 7.1 g/dL (6.7-8.2)
== END 2018-01-23 23:59 | disposition home or self-care (01) ==
LOC: LAB.R 08:00
DX: I50.33 Acute on chronic diastolic (congestive) heart failure (principal); N17.9 Acute kidney failure, unspecified
CPT/HCPCS: 80053; 85025

== ENCOUNTER 2018-01-24 00:37 | Outpatient (CLI) | payer MEDICARE | END 2018-01-24 00:38 | disposition critical access hospital (66) | LOC: EMS 00:37 | PROVIDERS: ATTEND Surgery | DX: R11.2 Nausea with vomiting, unspecified (principal) | CPT/HCPCS: A0425; A0429 ==

== ENCOUNTER 2018-01-24 00:42 | Inpatient (IN) | payer MEDICARE ==
[2018-01-24 01:25] LABS: BASOPHILS % (AUTO) 0.3 %; EOSINOPHILS # (AUTO) 0.1 10^3/uL (0.0-0.7); EOSINOPHILS % (AUTO) 1.1 %; HGB - HEMOGLOBIN 11.5 g/dL (14.0-18.0); LYMPHOCYTES # (AUTO) 0.5 10^3/uL (1.5-3.5); LYMPHOCYTES % (AUTO) 6.1 %; MEAN CORPUSCULAR HEMOGLOBIN 34.1 pg (27.0-31.0); MEAN CORPUSCULAR HGB CONC 33.4 g/dL (32.0-36.0); MEAN CORPUSCULAR VOLUME 102.1 fL (80.0-94.0); MEAN PLATELET VOLUME 10.2 fL (7.4-11.4); MONOCYTES # (AUTO) 0.5 10^3/uL (0.0-1.0); MONOCYTES % (AUTO) 5.5 %; NEUTROPHILS # (AUTO) 7.2 10^3/uL (1.5-6.6); PLT - PLATELET COUNT 72 10^3/uL (130-450); RED BLOOD COUNT 3.36 10^6/uL (4.70-6.10); RED CELL DISTRIBUTION WIDTH 16.5 % (12.0-15.0); WHITE BLOOD COUNT 8.3 x10^3/uL (4.8-10.8)
[2018-01-24 01:40] LABS: ALBUMIN/GLOBULIN RATIO 0.8 (1.0-2.2); BILIRUBIN,TOTAL 1.1 mg/dL (0.2-1.0); CALCIUM 9.4 mg/dL (8.5-10.3); CREATININE 1.6 mg/dL (0.6-1.2); TOTAL PROTEIN 6.8 g/dL (6.7-8.2)
[2018-01-24] MEDS ORDERED: ONDANSETRON 4 MG/2 ML VIAL IVP STA (02:21)
--- NOTE | 2018-01-24 04:32 | ED Physician Documentation ---
PD HPI NVD - Stated complaint Stated Complaint: VOMITING - Chief complaint Chief Complaint: Abd Pain - History obtained from History obtained from: Family, Other (HPI from ; patient not able to contribute to HPI/ROS due to 1) dementia 2) [id number]) - History of Present Illness Timing - onset: Enter time (18:00), Yesterday (01/23/18) Timing - details: Abrupt onset Associated symptoms: No: Fever Improved by: Other (no ameliorating factors) Worsened by: Other (no exacerbating factors) Recently seen: Admitted (earlier this month for pneumonia) Review of Systems Unable to obtain: Other (limited to information provided by spouse) Respiratory: reports: Cough GI: reports: Vomiting PD PAST MEDICAL HISTORY - Past Medical History Past Medical History: Yes Cardiovascular: Congestive heart failure, Hypertension, High cholesterol, Peripheral Vascular Disease, Murmur Respiratory: COPD, Pneumonia, Sleep apnea, CPAP use, Other Neuro: Dementia, Other Endocrine/Autoimmune: HyPOthyroidism GI: GERD, GI bleed, Ulcers, Colon polyps, Chronic diarrhea, 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: None : Benign prostate hypertrophy, Incontinence, Indwelling catheter, Nocturia, Frequency HEENT: Chronic vision loss, Chronic sinusitis, Chronic hearing loss Psych: Depression Musculoskeletal: Osteoporosis, Fatigue Derm: Other - Past Surgical History Past Surgical History: Yes General: Bowel surgery Ortho: Knee replacement Cardiovascular: Pacemaker - Present Medications Home Medications: Ambulatory Orders Medication Instructions Recorded Confirmed Simvastatin 20 mg PO QPM 06/06/17 01/24/18 Allopurinol [Zyloprim] 100 mg PO DAILY #30 tablet 01/15/18 01/24/18 Citalopram [CeleXA] 10 mg PO DAILY #30 tablet 01/15/18 01/24/18 Levothyroxine Sodium 150 mcg PO QDAC #30 01/15/18 01/24/18 Nystatin [Nystop] 1 applic TOP BID #1 bottle 01/15/18 01/24/18 Polyethylene Glycol 3350 [Miralax] 17 gm PO DAILY #30 packet 01/15/18 01/24/18 Saccharomyces Boulardii [Florastor] 250 mg PO BID #60 capsule 01/15/18 01/24/18 Ferrous Gluconate [Iron] 240 mg PO DAILYWM 01/24/18 01/24/18 Furosemide 80 mg PO DAILY 01/24/18 01/24/18 Ipratropium/Albuterol [Duoneb] 3 ml INH RTQID 01/24/18 01/24/18 Ondansetron HCl [Zofran] 4 mg PO Q4H PRN 01/24/18 01/24/18 Potassium Chloride 10 meq PO DAILYWM 01/24/18 01/24/18 - Allergies Allergies/Adverse Reactions: Allergies Allergy/AdvReac Type Severity Reaction Status Date / Time No Known Drug Allergies Allergy Verified 01/24/18 00:54 - Social History Does the pt smoke?: No Smoking Status: Never smoker Does the pt drink ETOH?: No Does the pt have substance abuse?: No - Immunizations Immunizations are current?: Yes - POLST Patient has POLST: Yes POLST Status: DNR PD ED PE NORMAL - Vitals Vital signs reviewed: Yes - General General: No acute distress, Well developed/nourished, Other (drowsy, keeps eyes closed through most of H+P; occasional wet cough during H+P) - HEENT HEENT: Other (bilious vomitus on clothing ) - Neck Neck: No JVD - Cardiac Cardiac: RRR, No murmur - Respiratory Respiratory: No respiratory distress, Other (rales bilateral bases ) - Abdomen Abdomen: Soft, Non tender - Derm Derm: Normal color, Warm and dry - Extremities Extremities: No edema PD ED PE EXPANDED - Abdomen Abdomen: Decreased BS, Distended, Surgical scars, Other (RLQ ostomy with large surrounding hernia) Results - Vitals Vitals: Vital Signs - 24 hr 01/24/18 01/24/18 01/24/18 00:47 02:49 04:19 Temperature 36.5 C Heart Rate 85 66 58 L Respiratory 20 20 18 Rate Blood Pressure 114/100 H 144/73 H 139/73 H O2 Saturation 100 100 99 01/24/18 01/24/18 06:15 06:54 Temperature 36.0 C L 36.1 C L Heart Rate 67 68 Respiratory 18 18 Rate Blood Pressure 129/84 H 126/85 H O2 Saturation 98 97 Oxygen O2 Source [With Activity] Room air O2 Source [Without Activity] Room air O2 Source Room air Oxygen Flow Rate 2 - Labs Labs: Laboratory Tests 01/24/18 01/24/18 01:15 01:15 WBC 8.3 RBC 3.36 L Hgb 11.5 L Hct 34.4 L MCV 102.1 H MCH 34.1 H MCHC 33.4 RDW 16.5 H Plt Count 72 L MPV 10.2 Neut # (Auto) 7.2 H Lymph # (Auto) 0.5 L [place] # (Auto) 0.5 Eos # (Auto) 0.1 Baso # (Auto) 0.0 Absolute Nucleated RBC 0.00 Nucleated RBC % 0.0 Sodium 142 Potassium 4.4 Chloride 107 Carbon Dioxide 27 Anion Gap 8.0 BUN 35 H Creatinine 1.6 H Estimated GFR (MDRD) 41 L Glucose 125 H Calcium 9.4 Total Bilirubin 1.1 H AST 24 ALT 19 Alkaline Phosphatase 58 Total Protein 6.8 Albumin 3.0 L Globulin 3.8 Albumin/Globulin Ratio 0.8 L Lipase 38 - Rads (name of study) CT A/P Radiology: Prelim report reviewed, See rad report PD MEDICAL DECISION MAKING - ED course Complexity details: reviewed results, re-evaluated patient, considered differential, d/w family Departure - Departure Disposition: 66 [facility] DC/Xfer Clinical Impression: Small bowel obstruction Condition: Stable Discharge Date/Time: 01/24/18 08:23
[2018-01-24] MEDS ORDERED: IOVERSOL 320 100 ML VIAL IVP ONE ×2 (05:16→05:43)
--- NOTE | 2018-01-24 06:04 | CT Report ---
Reason: vomiting Procedure Date: 01/24/2018 Accession Number: [id number] / [id number] Procedure: CT - Abdomen/Pelvis W/ CPT Code: FULL RESULT: EXAM: CT ABDOMEN AND PELVIS EXAM DATE: 01/24/2018 05:13 AM. CLINICAL HISTORY: Vomiting. COMPARISONS: ABDOMEN/PELVIS W/ 06/06/2017 10:58 AM. TECHNIQUE: Routine helical CT imaging was performed through the abdomen and pelvis. IV contrast: OPTI 320 100mL. Enteric contrast: No. Reconstructions: Coronal and sagittal. In accordance with CT protocol optimization, one or more of the following dose reduction techniques were utilized for this exam: automated exposure control, adjustment of mA and/or KV based on patient size, or use of iterative reconstructive technique. FINDINGS: Lung Bases: Moderate bilateral pleural effusions with bibasilar atelectasis or consolidation. Mild cardiomegaly. Coronary artery calcifications. Liver: Possible fatty infiltration. Lobulated liver margin. Gallbladder/Bile Ducts: Status post cholecystectomy. Spleen: Normal. Pancreas: Normal. Adrenal Glands: Normal. Kidneys: Bilateral cysts. No masses or hydronephrosis. Peritoneal Cavity/Bowel: Moderate to large amount of ascites. No free air. Right-sided ostomy with large parastomal hernia containing loops of colon and small bowel, and also ascites. No lymphadenopathy seen. There are dilated small bowel loops with air-fluid levels. Findings are consistent with small bowel obstruction. Transition zone possibly in the left mid to lower abdomen. Appendix is not seen. Pelvic Organs: Normal. The bladder and visualized pelvic organs are within normal limits. Vasculature: Moderate atherosclerosis. Mild infrarenal aortic ectasia measuring 2.5 cm. Bones: Osteopenia. Degenerative changes in the spine with spinal stenosis. Possible ankylosing spondylitis. Ankylosis of the sacroiliac joints. Other: Body wall edema possibly representing anasarca. Gynecomastia, right greater than left. IMPRESSION: 1. Moderate bilateral pleural effusions with bibasilar atelectasis or consolidation. 2. Mild cardiomegaly with coronary artery calcifications. 3. Possible fatty liver with lobulated liver margin. Correlate for any evidence of cirrhosis. 4. Moderate to large amount of ascites. 5. Small bowel obstruction. Transition possibly in the left mid to lower abdomen. 6. Right-sided ostomy with large parastomal hernia containing ascites, small bowel, and colon. 7. Osteopenia with degenerative changes in the spine and spinal stenosis. 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 8. Body wall edema possibly due to anasarca. RADIA
[2018-01-24] MEDS ORDERED: MORPHINE 2 MG/ML CARPUJECT IVP PRN (07:27)
[2018-01-24] MEDS ORDERED: SODIUM CHLORIDE FLUSH 0.9% 10 ML SYRINGE IVP PRN (07:27)
[2018-01-24] MEDS ORDERED: HYDROmorphone 0.5 MG/0.5 ML SYRINGE IVP PRN (07:27)
[2018-01-24] MEDS ORDERED: TEMAZEPAM 15 MG CAPSULE PO PRN (07:27)
[2018-01-24] MEDS ORDERED: PROCHLORPERAZINE 10 MG/2 ML VIAL IVP PRN (07:27)
--- NOTE | 2018-01-24 07:59 | HISTORY & PHYSICAL EXAMINATION ---
Chief Complaint - Chief Complaint Chief Complaint: intractable nausea and vomiting. History of Present Illness - Admitted From Admitted From:: ED - History Obtained From Records Reviewed: yes History obtained from: chart review, patient, Evelyn- Exam Limitations: AMS - History of Present Illness HPI Comment/Other: Long Nuno is an ill appearing 88-year old male with a past medical history of charcot's foot of RLE, hypothyroidism, COPD, DUTCH-noncompliance, SSS requiring a permanent pacemaker last changed in October 2016, hyperlipidemia, hypertension, gout, anemia, depressive disorder, anxiety disorder, chronic hearing loss, CKD, diastolic CHF with severe right heart strain, cor pulmonale, muscle weakness, GERD, gastric ulcers, H. pylori, colon resection-status post RLQ mature ostomy, osteoporosis, and a stable ventral hernia. The patient was originally scheduled to see general surgery for this that was dated for 01/24/18, but cancelled by family due to the patient being at [facility] for ongoing physical therapy. The patient was transported via EMS from SNF for intractable nausea and vomiting that had been going on since dinner time last night. (about 6 hours). The patient's , Evelyn states that he had been eating well and was participating in physical therapy since being discharged on 01/15/18. Labs are unremarkable, besides his usual anemia with an H/H of 11.5/34.4, no WBC count with otherwise unremarkable labs. Imaging including an abdominal and pelvis CT confirmed a SBO in the left mid to lower abdomen and this goes with his symptoms of intractable N/V that started last evening. He has chronic abdominal edema, ascities, and complicating factors of a stable ventral hernia/chronic RLQ ostomy. On exam the patient is more confused and lethargic as compared to his last admission. His denies any reports of bleeding, a worsening cough, fever, chills, a new rash, a recent fall or chest pain leading up to this admission. I contacted general surgery, Dr. Hunter Cifuentes to discuss treatment of this acute SBO, who recommends a gastro-graffin challenge with serial imaging and will follow. He also informed me that with the patient not being a surgical candidate, he cannot offer any other solution for the ventral hernia that the patient had an outpatient appointment for, so he has signed off in that respect. The patient was admitted to inpatient and made NPO for the treatment of this acute SBO. The patient's fluid status is difficult to maintain as he has a very poor functioning heart and CKD. 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: None : reports: Benign prostate hypertrophy, Incontinence, Renal insuffiency, Nocturia, Frequency HEENT: reports: Chronic vision loss, Chronic sinusitis, Chronic hearing loss Psych: reports: Depression Musculoskeletal: reports: Osteoarthritis, Osteoporosis, Gout, Fatigue, Chronic back pain Derm: reports: None MRSA Hx?: No - Past Surgical History General: reports: Bowel surgery, Colonoscopy, EGD Ortho: reports: Knee replacement Cardiovascular: reports: Pacemaker - Family & Social History Family History: Mother: (dad at 90 with crohns; sister just passed is not aware), Diabetes, Type 2 (at 89), Father: , Cancer, Sister: Dec eased, Obesity Family History Comment/Other: The patient's mother had DM and at age 89, his father had crohn's disease and at age 90. Siblings with heart disease, DM and cancer. Living arrangement: shelter (for SNF rehab since 01/15/18) Social History Notes: The patient is currently undergoing short term rehab at [facility] since 01/15/18. The patient [place] lived [place] the [place] for just over one year and moved here to be close to family as his was getting overwhelmed with the increased care needs. 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 He has 2 daughters, one that lives in [place] and the other in [place]. He has been to [place] for several years. He denies current alcohol, tobacco or illicit drug use. He wishes to be a DNR. - Substance History Use: Uses substance without health or social issues: NONE, Tobacco (smoke for 40 years; quit 87) Abuse: Recurrent use of substance despite neg consequences: NONE Dependence: Experiences withdrawal or developed tolerances: NONE - POLST Patient has POLST: Yes POLST Status: DNR Meds/Allgy - Home Medications Home Medications: Ambulatory Orders Medication Instructions Recorded Confirmed Simvastatin 20 mg PO QPM 06/06/17 01/24/18 Allopurinol [Zyloprim] 100 mg PO DAILY #30 tablet 01/15/18 01/24/18 Citalopram [CeleXA] 10 mg PO DAILY #30 tablet 01/15/18 01/24/18 Levothyroxine Sodium 150 mcg PO QDAC #30 01/15/18 01/24/18 Nystatin [Nystop] 1 applic TOP BID #1 bottle 01/15/18 01/24/18 Polyethylene Glycol 3350 [Miralax] 17 gm PO DAILY #30 packet 01/15/18 01/24/18 Saccharomyces Boulardii [Florastor] 250 mg PO BID #60 capsule 01/15/18 01/24/18 Ferrous Gluconate [Iron] 240 mg PO DAILYWM 01/24/18 01/24/18 Furosemide 80 mg PO DAILY 01/24/18 01/24/18 Ipratropium/Albuterol [Duoneb] 3 ml INH RTQID 01/24/18 01/24/18 Ondansetron HCl [Zofran] 4 mg PO Q4H PRN 01/24/18 01/24/18 Potassium Chloride 10 meq PO DAILYWM 01/24/18 01/24/18 - Allergies Allergies/Adverse Reactions: Allergies Allergy/AdvReac Type Severity Reaction Status Date / Time No Known Drug Allergies Allergy Verified 01/24/18 00:54 Review of Systems - Constitutional Constitutional: reports: Fatigue, Weakness, Poor appetite - Eyes Eyes: reports: Vision loss - Ears, Nose & Throat Ears, Nose & Throat: reports: Hearing loss, Hearing aids, Postnasal drainage, Dentures - Cardiovascular Cariovascular: reports: Edema, Exertional dyspnea, Decr. exercise tolerance, Orthopnea - Respiratory Respiratory: reports: Cough, Orthopnea, SOB at rest, SOB with exertion - Gastrointestinal Gastrointestinal: reports: Abdominal pain, Abdominal distention, Diarrhea, Change in bowel habits, Nausea, Vomiting, Bile emesis, Reflux/heartburn, Bloating, Poor appetite - Genitourinary Genitourinary: reports: Dysuria, Incontinence, Nocturia - Musculoskeletal Musculoskeletal: reports: Back pain, Muscle aches, Muscle weakness, Gout, Joint swelling - Integumentary Integumentary: reports: Dryness - Neurological Neurological: reports: General weakness, Focal weakness, Memory problems, Pre- existing deficit, Abnormal gait, Incoordination - Psychiatric Psychiatric: reports: Depression - Hematologic/Lymphatic Hematologic/Lymphatic: reports: Recurrent infections - All Other Systems All Other Systems: reports: Reviewed and negative Prior Level of Functionality: Very debilitated and is undergoing physical therapy at [facility] with a walker. Slow progress, fall precautions. Exam - Vital Signs Reviewed Vital Signs: Yes Vital Signs: Vital Signs x48h Temp Pulse Resp BP Pulse Ox 01/24/18 06:54 36.1 C L 68 18 126/85 H 97 01/24/18 06:15 36.0 C L 67 18 129/84 H 98 01/24/18 04:19 58 L 18 139/73 H 99 01/24/18 02:49 66 20 144/73 H 100 01/24/18 00:47 36.5 C 85 20 114/100 H 100 - Physical Exam General Appearance: positive: No acute distress, Alert Eyes Bilateral: positive: PERRL ENT: positive: Oral lesions (tongue discolored, dry), Dry mucous membranes Neck: positive: Thyroid nml, No JVD Respiratory: positive: Chest non-tender, No respiratory distress, Rhonchi Cardiovascular: positive: No gallop, Irregularly irregular, Systolic murmur Peripheral Pulses: positive: 1+ Abdomen: positive: Tenderness (LLQ), Hepatomegaly, Mass, Abnml bowel sounds, Other Back: positive: Nml inspection Skin: positive: No rash, Warm, Dry, Pallor, Other (bronze) Extremities: positive: Non-tender, Pedal edema, Joint swelling Neurologic/Psychiatric: positive: Disoriented to place, Disoriented to time, Weakness, Sensory loss, Slurred/abnml speech, Depressed mood/affect, Other (ba seline dementia, worsening) Reflexes: Bicep (R): 2+, Bicep (L): 2+ Sepsis Event Note (H) - Evaluation Current Stage of Sepsis: Ruled out Conclusion/Plan - Problem List (1) Intractable nausea and vomiting Conclusion/Plan: The patient was transported via EMS from [facility] for intractable nausea and vomiting that had been going on since dinner time last night. (about 6 hours). The patient's , Evelyn states that he had been eating well and was participating in physical therapy since being discharged on 01/15/18. Since arriving to the ED the vomiting has continued but under better control and after getting to the nursing floor has completely subsided. Plan: Continue NPO, SBO work up, and control symptoms with meds. (2) Small bowel obstruction Conclusion/Plan: The patient is found to have a SBO in the left mid to lower abdomen and this goes with his symptoms of intractable N/V that started last evening. He has chronic abdominal edema, ascities, and complicating factors of a stable ventral hernia/chronic RLQ ostomy. Plan: Continue NPO, serial imaging, and Gastro-graffin. (3) Altered bowel elimination due to intestinal ostomy Conclusion/Plan: A wound care consult was made to manage the patient's chronic RLQ ostomy that appeared to be getting loose, and may not have been placed correctly. Wound care reports that the surrounding tissue is swollen from his anasarca causing more difficulty with protecting the stoma. He has had more output today after consuming the Gastro-graffin. Plan: Frequent checks to ensure proper placement and drainage. (4) Hearing loss Conclusion/Plan: The patient has baseline dementia and is also profoundly [place] despite bilateral hearing aides. It is many times difficult to assess understanding and many times information has to be repeated. He is a poor historian, and his attempts to help, but also suffers from memory loss. Plan: Communication board may be helpful, frequent nursing cares, and fall precautions. (5) Ventral hernia without obstruction or gangrene Conclusion/Plan: The patient has known stable ventral hernia and is NOT a surgical candidate, so general surgery has signs off. He did have an outpatient appointment on 01/24/18 that was cancelled by family after being accepted to SNF for rehab. Plan: Continue to monitor, continue SBO treatment. (6) Macrocytic anemia Conclusion/Plan: The patient has baseline anemia with an H/H of 11.5/34.4 on admission. (7) Hypothyroidism Conclusion/Plan: The patient is prescribed Synthroid at home which is continued here. His last TSH was on 01/11/18 with a value of 3.91. His dose of medication remains at 150 mcgs. Plan: Continue to monitor and suggest a TSH in about 5 weeks from 12/6/18. Qualifiers: Hypothyroidism type: acquired Qualified Code(s): E03.9 - Hypothyroidism, unspecified (8) Oxygen dependent Conclusion/Plan: During the patient's last admission, he qualified for chronic continuous oxygen and has required 2L per nasal cannula while here. He will also likely have chronic bilateral pleural effusions due to his very severely impaired right h eart function, which also causes chronic BLE edema, and a very enlarged abdominal girth. Plan: Continue to monitor O2 levels and titrate for comfort or for saturations less than 90%. (9) DUTCH (obstructive sleep apnea) Conclusion/Plan: The patient was once tested for this via sleep study as an outpatient, but his daughter explains that he was told to turn it back in because he no longer needs it. More likely, he was somewhat non-compliant with the use of a home device, which dis-qualified further use. He has since been oxygen dependent. He certainly has evidence of this disorder via his last echo showing severe right heart dysfunction. Plan: Continue oxygen therapy. (10) Pacemaker Conclusion/Plan: The patient remains with a left chest pacemaker that is stable, chronic and without signs of dysfunction or infection. Plan: Continue to monitor site and VSs. - Lab Results Lab results reviewed: Yes Osiel Bones: 01/25/18 05:30 01/25/18 05:30 Core Measures - Anticipated LOS I expect patient to be DC'd or transferred within 96 hours.: Yes
[2018-01-24] MEDS ORDERED: ONDANSETRON 4 MG/2 ML VIAL IVP SCH (09:00)
[2018-01-24] MEDS ORDERED: POLYETHYLENE GLYCOL 3350 17 GM PACKET PO SCH (09:00)
[2018-01-24] MEDS: SODIUM CHLORIDE FLUSH 0.9% 10 ML SYRINGE IVP SCH ×2 (10:43→18:59)
[2018-01-24] MEDS: LEVOTHYROXINE 75 MCG TABLET PO SCH (10:43)
[2018-01-24] MEDS: NYSTATIN POWDER 15 GM TOP SCH (10:44)
[2018-01-24] MEDS: ENOXAPARIN 40 MG/0.4 ML SYRINGE SUBQ SCH (10:44)
[2018-01-24] MEDS: IPRATROPIUM/ALBUTEROL 3 ML NEB INH SCH ×3 (10:51→19:19)
--- NOTE | 2018-01-24 11:42 | CONSULTATION NOTE ---
Palliative Care Follow Up - Referral Referring Provider: Marilee GONZALES Time of Visit: 0900-915; [id number] Referral setting: Hospitalized patient Referral Reason: Failure to Thrive/SBO/Dementia/Goals of Care - Information Sources Records reviewed: Previous records reviewed History/Review of Systems obtained from: Family (met with Evelyn) Exam limitations: Clinical condition (patient with dementia; only few word responses today; appear lethargic and fatigued) - History of Present Illness Update Brief HPI Update: This is an 88-year-old gentleman who was recently hospitalized from 01/08-01/15 for bilateral pneumonia, acute on chronic diastolic heart failure, cor pulmonale, bilateral pleural effusions, and ongoing cardiorenal syndrome with CKD stage III and COPD. Patient was discharged at that point in time [facility], has been receiving rehab services. Patient had b een making progress, though is quite frail, only able to ambulate about 30 feet, is been providing feeding, as well as patient has had some improvement in respiratory/renal status. Patient is quite frail overall, has had fairly rapid decline over this last year, with noted cognitive decline particularly last couple months. and daughter met with palliative care on last day, to discuss goals of care. I am meeting with today, she does recognize he is quite frail, and rehospitalization him with his SBO, is of concern. Patient previous to his admit last night, with significant nausea and vomiting, of bile emesis, and liquid brown stool, this is fairly acute on onset. Patient had been eating and drinking without difficulty at halfway. Patient did have a CT of the abdomen, that did show again moderate bilateral pleural effusions, moderate to large amount of ascites, small bowel obstruction, the right sided ostomy with large parastomal hernia containing ascites, small bowel, and colon. Also noted was body wall edema possibly due to anasarca. Patient on exam is quite fatigued, difficulty to arouse. He is doing some expiratory moaning, reports this is a usual pattern for him. Expressed my concern might be pain, she says this is prior to his hospitalization as well. His abdomen is soft, does not appear tender to palpation, does have few hypoactive bowel tones particularly in the left lower quadrant. They have been having difficulty keeping his colostomy on. Patient with scattered rhonchi, minimal breath sounds to about a third of the way up, no cough noted. Patient does not present with any acute distress, has had Gastrografin, is getting a series a small bowel follow-through x-rays. Concern is patient would not be able to tolerate any kind of surgical intervention if indicated, is in agreement and perceive this would be too hard on him as well. Patient's past history includes Charcot's right foot lower extremity, sick sinus syndrome with pacemaker, GERD, H. pylori, colon resection status post colostomy. Continues to have difficulty has has a significant ventral hernia, and continues to be problematic. Social History - Living Situation Living arrangement: At home Living Situation: With spouse/s.o. Support System: Patient's care needs were increasing at home, increasing difficulty meeting these with his elderly , [place] Given his discharge from [facility] last time, with his increased care needs agreement was to discharge to SNF. When reviewed with , does feel patient has been making progress at SNF, is worried that his new room which has been a better fit for him, would not be available to him if he had a prolonged hospitalization. She does not feel she would be able to care for him at home unless he got stronger and more independent. She has been staying with him most of the day until 4:00, she is good, and cannot drive in the dark, his daughters have come and stayed with him in the evenings. Medications/Allergies - Medications Active Medication List: Active Medications Albuterol/Ipratropium (Duoneb) 3 ml INH RTQID [facility] Last Admin: 01/24/18 10:51 Dose: 3 ml Enoxaparin Sodium (Lovenox) 40 mg SUBQ DAILY [facility] Last Admin: 01/24/18 10:44 Dose: Not Given Hydromorphone HCl (Dilaudid Inj Syringe) 0.5 mg IVP Q2H PRN PRN Reason: Pain 8 to 10 Levothyroxine Sodium (Synthroid) 150 mcg PO QDAC [facility] Last Admin: 01/24/18 10:43 Dose: 150 mcg Morphine Sulfate (Morphine (Carpuject)) 2 mg IVP Q2HR PRN PRN Reason: Pain 8 to 10 Nystatin (Nystop) 1 applic TOP BID [facility] Last Admin: 01/24/18 10:44 Dose: 1 applic Ondansetron HCl (Zofran Inj) 4 mg IVP Q4HR [facility] Last Admin: 01/24/18 10:43 Dose: 4 mg Polyethylene Glycol (Miralax) 17 gm PO DAILY [facility] Last Admin: 01/24/18 09:27 Dose: Not Given Prochlorperazine Edisylate (Compazine Inj) 10 mg IVP Q6HR PRN PRN Reason: Nausea / Vomiting Sodium Chloride (Normal Saline Flush 0.9%) 10 ml IVP PRN PRN PRN Reason: NEEDED PER PROVIDER ORDERS Sodium Chloride (Normal Saline Flush 0.9%) 10 ml IVP 0100,0900,1700 [facility] Last Admin: 01/24/18 10:43 Dose: 10 ml Temazepam (Restoril) 15 mg PO QPM PRN PRN Reason: Insomnia Simvastatin 20 mg PO QPM 06/06/17 Ferrous Gluconate [Iron] 240 mg PO DAILYWM 01/24/18 Furosemide 80 mg PO DAILY 01/24/18 Ipratropium/Albuterol [Duoneb] 3 ml INH RTQID 01/24/18 Ondansetron HCl [Zofran] 4 mg PO Q4H PRN 01/24/18 Potassium Chloride 10 meq PO DAILYWM 01/24/18 - Allergies Allergies/Adverse Reactions: Allergies Allergy/AdvReac Type Severity Reaction Status Date / Time No Known Drug Allergies Allergy Verified 01/24/18 00:54 Review of Systems - Constitutional Constitutional: reports: Fatigue. denies: Fever - Ears, Nose & Throat Ears, Nose & Throat: reports: Dry mouth - Respiratory Respiratory: reports: Wheezing - Gastrointestinal Gastrointestinal: reports: Nausea (prior to admit and ED last night;), Vomiting, Good appetite ("he liked the food"), Other (two large BMs; loose in colostomy today) - Genitourinary Genitourinary: reports: Incontinence (can be continent if urinal available) - Musculoskeletal Musculoskeletal: reports: Stiffness, Muscle weakness - Integumentary Integumentary: reports: Dryness - Neurological Neurological: reports: General weakness, Memory problems - Endocrine Endocrine: reports: Intolerance to cold - All Other Systems All Other Systems: reports: Other (limited ROS) Physical Exam - Vital Signs Vital Signs: Vital Signs x48h Temp Pulse Pulse Resp BP BP Pulse Ox 12/19/18 10:58 57 L 22 01/24/18 08:38 36.3 C L 72 22 124/72 97 01/24/18 06:54 36.1 C L 68 18 126/85 H 97 01/24/18 06:15 36.0 C L 67 18 129/84 H 98 01/24/18 04:19 58 L 18 139/73 H 99 - Physical Exam General Appearance: positive: Lethargic Eyes Bilateral: positive: No scleral icterus ENT: positive: Dry mucous membranes Neck: positive: No JVD, Trachea midline Cardiovascular: positive: Irregular Respiratory: positive: Diminished in bases, Rhonchi, Other (noted respiratory effort) Abdomen: positive: Soft, Abnml bowel sounds, Distended Skin: positive: Pallor, Dryness Extremities: positive: No pedal edema (scds on) Neurologic/Psychiatric: positive: Disoriented to place, Disoriented to time, Weakness, Slurred/abnml speech, Flat affect Palliative Care - POLST Patient has POLST: Yes POLST Status: DNR, Selective Treatment Pain: No pain (denies pain; does have "moaning" but reports reflexive with breathing and baseline;) Performance Status: Per , patient has been making progress, reports he had been able to ambulate just the day before about 33 feet with walker and physical therapy. [place] like though he was frail, he was making progress. - Palliative Care Discussion: Discussion with , she is by default the D POA for medical power of family law attorney, they do have DPOA forms but not for medical decision making. Patient did have completed RACHEL ST from last palliative care admit, which is a DNA R and selected treatment. She does recognize the seriousness of his illness, reports our conversation last time has really helped to be prepared. She does perceive that each day she has with him is a gift. She also perceives his quality of life continues to deteriorate. She does understand currently there are no decisions to be made, awaiting the outcome of the x-rays, bowel rest, and to see patient's response. Patient does present with only mild improvement previous to SBO, continues as a failure to thrive, and concern for yet another acute hospitalization. Patient at high risk for continued deterioration secondary to his multiple comorbidities, and would be a poor surgical candidate. Results - Lab Results Lab results reviewed: Yes Osiel Bones: 01/24/18 01:15 18 01:15 Lab and Imaging Results: Lab Results x24hrs 01/24/18 01/24/18 Range/Units 01:15 01:15 WBC 8.3 (4.8-10.8) x10^3/uL RBC 3.36 L (4.70-6.10) 10^6/uL Hgb 11.5 L (14.0-18.0) g/dL Hct 34.4 L (42.0-52.0) % MCV 102.1 H (80.0-94.0) fL MCH 34.1 H (27.0-31.0) pg MCHC 33.4 (32.0-36.0) g/dL RDW 16.5 H (12.0-15.0) % Plt Count 72 L (130-450) 10^3/uL MPV 10.2 (7.4-11.4) fL Neut # (Auto) 7.2 H (1.5-6.6) 10^3/uL Lymph # (Auto) 0.5 L (1.5-3.5) 10^3/uL [place] # (Auto) 0.5 (0.0-1.0) 10^3/uL Eos # (Auto) 0.1 (0.0-0.7) 10^3/uL Baso # (Auto) 0.0 (0.0-0.1) 10^3/uL Absolute Nucleated RBC 0.00 x10^3/uL Nucleated RBC % 0.0 /100WBC Sodium 142 (135-145) mmol/L Potassium 4.4 (3.5-5.0) mmol/L Chloride 107 (101-111) mmol/L Carbon Dioxide 27 (21-32) mmol/L Anion Gap 8.0 (6-13) BUN 35 H (6-20) mg/dL Creatinine 1.6 H (0.6-1.2) mg/dL Estimated GFR (MDRD) 41 L (>89) Glucose 125 H (70-100) mg/dL Calcium 9.4 (8.5-10.3) mg/dL Total Bilirubin 1.1 H (0.2-1.0) mg/dL AST 24 (10-42) IU/L ALT 19 (10-60) IU/L Alkaline Phosphatase 58 (42-121) IU/L Total Protein 6.8 (6.7-8.2) g/dL Albumin 3.0 L (3.2-5.5) g/dL Globulin 3.8 (2.1-4.2) g/dL Albumin/Globulin Ratio 0.8 L (1.0-2.2) Lipase 38 (22-51) U/L Impression and Recommendations - Palliative Care Impression: This is an 88-year-old gentleman with dementia, multiple and serious comorbidities, with ongoing cognitive and functional decline. He recently was discharged after a difficult and lengthy hospitalization, continues to present as a failure to thrive and quite frail, and now with an acute small bowel obstru ction. Palliative care to continue to provide support regarding goals of care, no acute decisions to be made right now, but both daughter Mer[place] and recognize the seriousness of his condition. Recommendations/Counseling Done: 1. Small bowel obstruction. Patient without any further vomiting, does not appear in any acute distress. Awaiting outcome of studies, this will inform future or further decision making in the context of goals. 2. Advanced care planning. Patient is a DNA R, met with , very aware of patient's fragile status, continue to set rapport, reviewing goals of care and priorities, palliative care to provide ongoing support and be available for transition planning. is hoping for patient to return to SNF and complete rehab stay with goals to improve functional status. Time Spent: 45 minutes with greater than 50% of this done in counseling and exploration of goals of care, and anticipatory guidance.
[2018-01-24] MEDS ORDERED: SODIUM CHLORIDE 0.9% 500 ML IV ONE ×2 (12:01→20:00)
--- NOTE | 2018-01-24 15:47 | XRAY Report ---
Reason: GASTRO CHALLENGE SBFT Procedure Date: 01/24/2018 Accession Number: [id number] / [id number] Procedure: XR - Abdomen 1 View X-Ray CPT Code: 86544 FULL RESULT: EXAM: ABDOMEN RADIOGRAPHY EXAM DATE: 01/24/2018 11:25 AM. CLINICAL HISTORY: Gastro challenge/small bowel follow through. COMPARISON: Abdomen/pelvis with contrast 01/24/2018 5:13 AM. TECHNIQUE: 1 view. FINDINGS: Bowel Gas Pattern: Within normal limits. No dilated loops. There is positive contrast within the stomach and jejunal loop which appears normal. Other: None. IMPRESSION: Normal 1-view abdomen x-ray with positive contrast in the stomach and duodenal sweep. RADIA
--- NOTE | 2018-01-24 18:17 | XRAY Report ---
Reason: SBO Procedure Date: 01/24/2018 Accession Number: [id number] / [id number] Procedure: XR - Abdomen 1 View X-Ray CPT Code: 80935 FULL RESULT: EXAM: ABDOMEN RADIOGRAPHY. EXAM DATE: 01/24/2018 04:05 PM. CLINICAL HISTORY: Shortness of breath. 4 hours post Gastrografin. COMPARISON: Abdomen 1 view 01/24/2018 11:05 AM. TECHNIQUE: 1 view. FINDINGS: Bowel Gas Pattern: Very minimal progression of the small amount oral Gastrografin into the proximal mildly dilated loops of small bowel. Majority of oral contrast out of the stomach. The colon is small in caliber. Pacer. Moderate cardiomegaly. Large bilateral pleural effusions. Other: Cholecystectomy. IMPRESSION: No significant progression of the oral contrast beyond jejunum. RADIA
[2018-01-25] MEDS: NYSTATIN POWDER 15 GM TOP SCH ×3 (00:21→20:58)
[2018-01-25] MEDS: SODIUM CHLORIDE FLUSH 0.9% 10 ML SYRINGE IVP SCH ×3 (00:22→14:10)
--- NOTE | 2018-01-25 01:20 | XRAY Report ---
Reason: SBO-imaging series Procedure Date: 01/25/2018 Accession Number: [id number] / [id number] Procedure: XR - Abdomen 1 View X-Ray CPT Code: 11816 FULL RESULT: EXAM: ABDOMEN RADIOGRAPHY EXAM DATE: 01/24/2018 11:19 PM. CLINICAL HISTORY: SBO-imaging series. COMPARISON: ABDOMEN 1 VIEW 01/24/2018 3:40 PM, ABDOMEN 1 VIEW 01/24/2018 11:05 AM. TECHNIQUE: 1 view. FINDINGS IMPRESSION: 1. Clustered, dilated small bowel loops are again seen within the lower abdomen/pelvic region. 2. Contrast opacification of the urinary bladder. 3. Small amount of contrast material is seen within the right lower quadrant, uncertain location. RADIA
[2018-01-25 05:44] LABS: BASOPHILS % (AUTO) 0.7 %; EOSINOPHILS # (AUTO) 0.1 10^3/uL (0.0-0.7); EOSINOPHILS % (AUTO) 1.8 %; HGB - HEMOGLOBIN 11.1 g/dL (14.0-18.0); LYMPHOCYTES # (AUTO) 0.8 10^3/uL (1.5-3.5); LYMPHOCYTES % (AUTO) 16.2 %; MEAN CORPUSCULAR HEMOGLOBIN 33.7 pg (27.0-31.0); MEAN CORPUSCULAR HGB CONC 31.9 g/dL (32.0-36.0); MEAN CORPUSCULAR VOLUME 105.7 fL (80.0-94.0); MEAN PLATELET VOLUME 9.6 fL (7.4-11.4); MONOCYTES # (AUTO) 0.5 10^3/uL (0.0-1.0); MONOCYTES % (AUTO) 9.4 %; NEUTROPHILS # (AUTO) 3.7 10^3/uL (1.5-6.6); NEUTROPHILS % (AUTO) 71.9 %; PLT - PLATELET COUNT 59 10^3/uL (130-450); RED BLOOD COUNT 3.28 10^6/uL (4.70-6.10); RED CELL DISTRIBUTION WIDTH 16.7 % (12.0-15.0); WHITE BLOOD COUNT 5.1 x10^3/uL (4.8-10.8)
[2018-01-25 05:54] LABS: ALBUMIN 2.8 g/dL (3.2-5.5); ALBUMIN/GLOBULIN RATIO 0.8 (1.0-2.2); CREATININE 1.7 mg/dL (0.6-1.2); MAGNESIUM 1.9 mg/dL (1.7-2.8); PHOSPHORUS 4.4 mg/dL (2.5-4.6); TOTAL PROTEIN 6.4 g/dL (6.7-8.2)
[2018-01-25] MEDS: LEVOTHYROXINE 75 MCG TABLET PO SCH (06:20)
[2018-01-25] MEDS: ENOXAPARIN 40 MG/0.4 ML SYRINGE SUBQ SCH (08:02)
[2018-01-25] MEDS: POLYETHYLENE GLYCOL 3350 17 GM PACKET PO SCH ×2 (08:03→14:59)
[2018-01-25] MEDS ORDERED: FUROSEMIDE 40 MG TABLET PO SCH (09:00)
[2018-01-25] MEDS: ALLOPURINOL 100 MG TABLET PO SCH (09:27)
[2018-01-25] MEDS: SPIRONOLACTONE 25 MG TABLET PO SCH (09:28)
[2018-01-25] MEDS: FUROSEMIDE 40 MG TABLET PO SCH (09:28)
[2018-01-25] MEDS: IPRATROPIUM/ALBUTEROL 3 ML NEB INH SCH ×4 (10:13→20:03)
--- NOTE | 2018-01-25 12:43 | PROVIDER PROGRESS NOTE ---
Subjective - Prog Note Date Prog Note Date: 01/25/18 Prog Note Time: 12:43 - Subjective Pt reports feeling: Improved Subjective: Long had just mild nausea both before and after his AM meal, but this afternoon has more profound nausea without vomiting and was given IV Zofran. He denies chest pain, a productive cough, increased shortness of breath or a new rash. His , Evelyn and daughter, Merced was at the bedside for this exam. Current Medications - Current Medications Current Medications: Active Medications: Albuterol/Ipratropium (Duoneb) 3 ml INH RTQID [facility] Last Admin: 01/25/18 10:13 Dose: 3 ml Allopurinol (Zyloprim) 100 mg PO DAILY [facility] Last Admin: 01/25/18 09:27 Dose: 100 mg Chlorhexidine Gluconate (Peridex) 15 ml PO BID [facility]- New order. Enoxaparin Sodium (Lovenox) 40 mg SUBQ DAILY [facility] Last Admin: 01/25/18 08:02 Dose: Not Given Furosemide (Lasix) 40 mg PO DAILY [facility] Last Admin: 01/25/18 09:28 Dose: 40 mg Hydromorphone HCl (Dilaudid Inj Syringe) 0.5 mg IVP Q2H PRN Reason: Pain 8 to 10 Levothyroxine Sodium (Synthroid) 150 mcg PO QDAC [facility] Last Admin: 01/25/18 06:20 Dose: 150 mcg Morphine Sulfate (Morphine (Carpuject)) 2 mg IVP Q2HR PRN Reason: Pain 8 to 10 Nystatin (Nystop) 1 applic TOP BID [facility] Last Admin: 01/25/18 09:28 Dose: 1 applic Ondansetron HCl (Zofran Inj) 4 mg IVP Q4HR PRN Reason: Nausea / Vomiting Last Admin: 01/25/18 14:10 Dose: 4 mg Polyethylene Glycol (Miralax) 17 gm PO DAILY [facility] Last Admin: 01/25/18 14:59 Dose: 17 gm Prochlorperazine Edisylate (Compazine Inj) 10 mg IVP Q6HR PRN Reason: Nausea / Vomiting Sodium Chloride (Normal Saline Flush 0.9%) 10 ml IVP PRN Reason: NEEDED PER PROVIDER ORDERS Sodium Chloride (Normal Saline Flush 0.9%) 10 ml IVP 0100,0900,1700 [facility] Last Admin: 01/25/18 14:10 Dose: 10 ml Spironolactone (Aldactone) 25 mg PO DAILY [facility] Last Admin: 01/25/18 09:28 Dose: 25 mg Temazepam (Restoril) 15 mg PO QPM PRN Reason: Insomnia HOME meds prior to admission: Simvastatin 20 mg PO QPM 06/06/17 Ferrous Gluconate [Iron] 240 mg PO DAILYWM 01/24/18 Furosemide 80 mg PO DAILY 01/24/18 Ipratropium/Albuterol [Duoneb] 3 ml INH RTQID 01/24/18 Ondansetron HCl [Zofran] 4 mg PO Q4H PRN 01/24/18 Potassium Chloride 10 meq PO DAILYWM 01/24/18 Objective - Vital Signs/Intake & Output Reviewed Vital Signs: Yes Vital Signs: Vital Signs x48h Temp Pulse Pulse Resp BP Pulse Ox 01/25/18 10:10 59 L 18 01/25/18 07:49 36.6 C 63 18 130/70 99 Intake & Output: Intake & Output 01/22/18 01/23/18 01/24/18 01/25/18 23:59 23:59 23:59 23:59 Intake Total 500 790 Output Total 2375 600 Balance -1875 190 - Objective General Appearance: positive: Alert, Mild distress, Lethargic Eyes Bilateral: positive: PERRL Eyes: OU Conjunctivae pale ENT: positive: No signs of dehydration, Oral lesions (beefy tongue, does not look to be infected-but is sore as usual.) Neck: positive: Thyroid nml, No JVD Respiratory: positive: Chest non-tender, No respiratory distress (much easier breathing today.), Rhonchi Cardiovascular: positive: Regular rate & rhythm, Systolic murmur, Decreased pulse(s) Peripheral Pulses: 1+ Radial (R), 1+ Radial (L) Abdomen: positive: Non-tender, Nml bowel sounds, Other Back: positive: Nml inspection (mild flank edema related to anasarca of abdomen.) Skin: positive: No rash, Warm, Dry, Pallor, Other (bronze) Extremities: positive: Non-tender, Pedal edema, Joint swelling, Other (atrophy noted to BLEs related to lack of ambulation and chronic edema.) Neurologic/Psychiatric: positive: Disoriented to time, Weakness, Sensory loss, Slurred/abnml speech (sluggish speech impaired by soreness on tongue.), Depressed mood/affect, Other Reflexes: Bicep (R): 2+, Bicep (L): 2+ - Lab Results Fish Bones: 01/25/18 05:30 01/25/18 05:30 Other Labs: Lab Results x24hrs 01/25/18 01/25/18 01/25/18 Range/Units 05:30 05:30 05:30 WBC (4.8-10.8) x10^3/uL RBC (4.70-6.10) 10^6/uL Hgb (14.0-18.0) g/dL Hct (42.0-52.0) % MCV (80.0-94.0) fL MCH (27.0-31.0) pg MCHC (32.0-36.0) g/dL RDW (12.0-15.0) % Plt Count (130-450) 10^3/uL MPV (7.4-11.4) fL Neut # (Auto) (1.5-6.6) 10^3/uL Lymph # (Auto) (1.5-3.5) 10^3/uL Person # (Auto) (0.0-1.0) 10^3/uL Eos # (Auto) (0.0-0.7) 10^3/uL Baso # (Auto) (0.0-0.1) 10^3/uL Absolute Nucleated RBC x10^3/uL Nucleated RBC % /100WBC Sodium 146 H (135-145) mmol/L Potassium 4.2 (3.5-5.0) mmol/L Chloride 110 (101-111) mmol/L Carbon Dioxide 27 (21-32) mmol/L Anion Gap 9.0 (6-13) BUN 40 H (6-20) mg/dL Creatinine 1.7 H (0.6-1.2) mg/dL Estimated GFR (MDRD) 38 L (>89) Glucose 77 (70-100) mg/dL Lactic Acid 1.1 (0.5-2.2) mmol/L Calcium 9.0 (8.5-10.3) mg/dL Phosphorus 4.4 (2.5-4.6) mg/dL Magnesium 1.9 (1.7-2.8) mg/dL Total Bilirubin 1.0 (0.2-1.0) mg/dL AST 21 (10-42) IU/L ALT 17 (10-60) IU/L Alkaline Phosphatase 54 (42-121) IU/L B-Natriuretic Peptide 489 H (5-100) pg/mL Total Protein 6.4 L (6.7-8.2) g/dL Albumin 2.8 L (3.2-5.5) g/dL Globulin 3.6 (2.1-4.2) g/dL Albumin/Globulin Ratio 0.8 L (1.0-2.2) 01/25/18 Range/Units 05:30 WBC 5.1 (4.8-10.8) x10^3/uL RBC 3.28 L (4.70-6.10) 10^6/uL Hgb 11.1 L (14.0-18.0) g/dL Hct 34.7 L (42.0-52.0) % MCV 105.7 H (80.0-94.0) fL MCH 33.7 H (27.0-31.0) pg MCHC 31.9 L (32.0-36.0) g/dL RDW 16.7 H (12.0-15.0) % Plt Count 59 L (130-450) 10^3/uL MPV 9.6 (7.4-11.4) fL Neut # (Auto) 3.7 (1.5-6.6) 10^3/uL Lymph # (Auto) 0.8 L (1.5-3.5) 10^3/uL Person # (Auto) 0.5 (0.0-1.0) 10^3/uL Eos # (Auto) 0.1 (0.0-0.7) 10^3/uL Baso # (Auto) 0.0 (0.0-0.1) 10^3/uL Absolute Nucleated RBC 0.00 x10^3/uL Nucleated RBC % 0.0 /100WBC Sodium (135-145) mmol/L Potassium (3.5-5.0) mmol/L Chloride (101-111) mmol/L Carbon Dioxide (21-32) mmol/L Anion Gap (6-13) BUN (6-20) mg/dL Creatinine (0.6-1.2) mg/dL Estimated GFR (MDRD) (>89) Glucose (70-100) mg/dL Lactic Acid (0.5-2.2) mmol/L Calcium (8.5-10.3) mg/dL Phosphorus (2.5-4.6) mg/dL Magnesium (1.7-2.8) mg/dL Total Bilirubin (0.2-1.0) mg/dL AST (10-42) IU/L ALT (10-60) IU/L Alkaline Phosphatase (42-121) IU/L B-Natriuretic Peptide (5-100) pg/mL Total Protein (6.7-8.2) g/dL Albumin (3.2-5.5) g/dL Globulin (2.1-4.2) g/dL Albumin/Globulin Ratio (1.0-2.2) - Diagnostic Imaging Diagnostic Imaging Results: positive: Final report reviewed Diagnostic Imaging Comments: EXAM: ABDOMEN RADIOGRAPHY EXAM DATE: 01/25/2018 12:18 PM. FINDINGS: Bowel Gas Pattern: The bowel gas pattern is within normal limits. There is mild gaseous distention of the stomach. There has been interval clearance of positive contrast from small and large bowel. There is excreted contrast within the urinary bladder partially decompressed. Bilateral pleural effusions are noted. Clips are noted in the right upper quadrant and pelvis from prior surgeries. IMPRESSION: Interval clearance of positive contrast from the bowel. *Final x-ray of this series. Findings discussed with patient and family. ABX Reporting Has patient been on IV antibiotics over the past 48 hours?: No Sepsis Event Note (H) - Evaluation Current Stage of Sepsis: Ruled out Assessment/Plan - Problem List (1) Intractable nausea and vomiting Impression: The patient was transported via EMS from [facility] for intractable nausea and vomiting that had been going on since dinner time last night. (about 6 hours). The patient's , Evelyn states that he had been eating well and was participating in physical therapy since being discharged on 01/15/18. Today the patient seemed to be doing better and tolerated a soft meal with thickened liquids for his AM meal, but after his lunch, he became nauseated to the point of requiring anti-emetics. His discharge back to [facility] is on hold with this being the #1 worrisome unresolved symptom as this may indicate a recurrence of the SBO. Plan: Continue to control symptoms with meds, monitor oral intake, give daily mirralax despite liquid stools to help prevent a recurrence. Encouraged incre ased activity, to the chair for meals. Qualifiers: Vomiting type: cyclical vomiting Qualified Code(s): G43.A1 - Cyclical vomiting, intractable (2) Small bowel obstruction Impression: The patient is found to have a SBO in the left mid to lower abdomen on admission that slowly resolved over the past 24 hours as per imaging with the last x-ray of the abdominal series showing an interval clearance of positive contrast from the bowel. Despite this finding, later today the patient has had nausea that has required anti-emetics after eating lunch. He has chronic abdominal edema, ascities, and complicating factors of a stable ventral hernia/chronic RLQ ostomy. The family has been updated at the bedside regarding this finding and the need to continue to monitor him for at least one more night given the recurrence of nausea. Plan: Continue a soft diet, give Mirralax daily, encourage ambulation, and there will be a low tolerance for re-imaging in the event of ongoing nausea. (3) CKD (chronic kidney disease) stage 3, GFR 30-59 ml/min Impression: The patient has a baseline creatinine of 1.5 and today his creatinine is slightly elevated at 1.7. This is likely a consequence of his unpredictable fluid balance related to the acute SBO. He got 2 boluses of normal saline yesterday given his high output. Plan: Daily labs, avoid nephrotoxins, and daily weights. (4) Altered bowel elimination due to intestinal ostomy Impression: A wound care consult was made to manage the patient's chronic RLQ ostomy that appears to be difficult to maintain since admission. Wound care reports that the surrounding tissue is swollen from his anasarca causing more difficulty with protecting the stoma. Today his abdominal swelling is overall improved after resuming his diuretic therapy. He has had a moderate amount of output today, that is reduced from yesterday after consuming the Gastro-graffin. Wound care med with the family to help organize proper appliance equipment for [facility], which I will copy into the discharge plan tomorrow. Plan: Frequent checks to ensure proper placement and drainage, continue daily Mirralax to ensure a resolution of SBO. (5) Ventral hernia without obstruction or gangrene Impression: The patient has known stable ventral hernia and is NOT a surgical candidate, so general surgery has signed off. He did have an outpatient appointment on 01/24/18 that was cancelled by family after being accepted to SNF for rehab. Plan: Continue to monitor, continue SBO precautions with controlling nausea, soft diet and daily Mirralax. (6) Hearing loss Impression: The patient has baseline dementia and is also profoundly [place] despite bilateral hearing aides. It is many times difficult to assess understanding and many times information has to be repeated. He is a poor historian, and his at tempts to help, but also suffers from memory loss. Plan: Communication board may be helpful, frequent nursing cares, and fall precautions. 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 He also has signs of long standing anemia with a chronic beefy appearance to his tongue. Plan: Continue to monitor, watch for acute bleeding. (8) Hypothyroidism Impression: The patient is prescribed Synthroid at home which is continued here. His last TSH was on 01/11/18 with a value of 3.91. His dose of medication remains at 150 mcgs. Plan: Continue to monitor and suggest a TSH in about 5 weeks from 01/11/18. Qualifiers: Hypothyroidism type: acquired Qualified Code(s): E03.9 - Hypothyroidism, unspecified (9) Oxygen dependent Impression: During the patient's last admission, he qualified for chronic continuous oxygen and has required 1.5-2L per nasal cannula while here. He will also likely have chronic bilateral pleural effusions due to his very severely impaired right heart function, which also causes chronic BLE edema, and a very enlarged abdominal girth. Plan: Continue to monitor O2 levels and titrate for comfort or for saturations less than 90%. (10) Cor pulmonale Impression: The patient's last echo on 01/11/18 showed severe Cor pulmonale with severe dilated RV with severely reduced function AND severe tricuspid regurg. On physical exam the patient has chronic BLE edema, and a very enlarged abdomen. Plan: Start Spironolactone, continue oral lasix, fluid restriction, daily weights and monitor I/O. (11) DUTCH (obstructive sleep apnea) Impression: The patient was once tested for this via sleep study as an outpatient, but his daughter explains that he was told to turn it back in because he no longer needs it. More likely, he was somewhat non-compliant with the use of a home device, which dis-qualified further use. He has since been oxygen dependent. He certainly has evidence of this disorder via his last echo showing severe right heart dysfunction. Plan: Continue oxygen therapy. (12) Pacemaker Impression: The patient remains with a left chest pacemaker that is stable, chronic and without signs of dysfunction or infection. Plan: Continue to monitor site and VSs.
--- NOTE | 2018-01-25 13:17 | XRAY Report ---
Reason: SBO-imaging series Procedure Date: 01/25/2018 Accession Number: [id number] / [id number] Procedure: XR - Abdomen 1 View X-Ray CPT Code: 85549 FULL RESULT: EXAM: ABDOMEN RADIOGRAPHY EXAM DATE: 01/25/2018 12:18 PM. CLINICAL HISTORY: SBO-imaging series. COMPARISON: ABDOMEN 1 VIEW 01/24/2018 11:19 PM ABDOMEN 1 VIEW 01/24/2018 3:40 PM ABDOMEN 1 VIEW 01/24/2018 11:05 AM. TECHNIQUE: 1 view. FINDINGS: Bowel Gas Pattern: The bowel gas pattern is within normal limits. There is mild gaseous distention of the stomach. There has been interval clearance of positive contrast from small and large bowel. There is excreted contrast within the urinary bladder partially decompressed. Bilateral pleural effusions are noted. Clips are noted in the right upper quadrant and pelvis from prior surgeries. Other: None. IMPRESSION: Interval clearance of positive contrast from the bowel. RADIA
[2018-01-25] MEDS: ONDANSETRON 4 MG/2 ML VIAL IVP PRN ×2 (14:10→18:47)
[2018-01-25] MEDS: CHLORHEXIDINE GLUCONATE 15 ML UDC PO SCH ×2 (16:22→20:58)
[2018-01-26] MEDS: SODIUM CHLORIDE FLUSH 0.9% 10 ML SYRINGE IVP SCH ×2 (02:47→08:14)
[2018-01-26] MEDS: LEVOTHYROXINE 75 MCG TABLET PO SCH (06:11)
[2018-01-26] MEDS: IPRATROPIUM/ALBUTEROL 3 ML NEB INH SCH ×2 (07:58→11:21)
[2018-01-26] MEDS: ALLOPURINOL 100 MG TABLET PO SCH (08:13)
[2018-01-26] MEDS: ENOXAPARIN 40 MG/0.4 ML SYRINGE SUBQ SCH (08:13)
[2018-01-26] MEDS: FUROSEMIDE 40 MG TABLET PO SCH (08:13)
[2018-01-26] MEDS: NYSTATIN POWDER 15 GM TOP SCH (08:13)
[2018-01-26] MEDS: CHLORHEXIDINE GLUCONATE 15 ML UDC PO SCH (08:13)
[2018-01-26] MEDS: POLYETHYLENE GLYCOL 3350 17 GM PACKET PO SCH (08:14)
[2018-01-26] MEDS: SPIRONOLACTONE 25 MG TABLET PO SCH (08:14)
[2018-01-26 08:39] LABS: BASOPHILS % (AUTO) 0.4 %; EOSINOPHILS # (AUTO) 0.1 10^3/uL (0.0-0.7); EOSINOPHILS % (AUTO) 1.6 %; LYMPHOCYTES # (AUTO) 1.8 10^3/uL (1.5-3.5); LYMPHOCYTES % (AUTO) 27.2 %; MEAN CORPUSCULAR HEMOGLOBIN 33.8 pg (27.0-31.0); MEAN CORPUSCULAR HGB CONC 32.5 g/dL (32.0-36.0); MEAN CORPUSCULAR VOLUME 104.1 fL (80.0-94.0); MEAN PLATELET VOLUME 9.5 fL (7.4-11.4); MONOCYTES # (AUTO) 0.5 10^3/uL (0.0-1.0); MONOCYTES % (AUTO) 7.2 %; NEUTROPHILS # (AUTO) 4.2 10^3/uL (1.5-6.6); NEUTROPHILS % (AUTO) 63.6 %; PLT - PLATELET COUNT 71 10^3/uL (130-450); RED BLOOD COUNT 3.54 10^6/uL (4.70-6.10); RED CELL DISTRIBUTION WIDTH 16.5 % (12.0-15.0); WHITE BLOOD COUNT 6.6 x10^3/uL (4.8-10.8)
[2018-01-26 08:41] LABS: CALCIUM 9.6 mg/dL (8.5-10.3); CREATININE 1.9 mg/dL (0.6-1.2); MAGNESIUM 1.8 mg/dL (1.7-2.8)
--- NOTE | 2018-01-26 09:11 | Discharge Plan ---
"Discharge Plan for SNF / [facility] - Discharge Plan And Transition Orders Disposition: 03 SNF DC/Xfer Condition: Good Allergies and Adverse Reactions: Allergies Allergy/AdvReac Type Severity Reaction Status Date / Time No Known Drug Allergies Allergy Verified 01/24/18 00:54 - SNF / [facility] Transition Orders Admit to (Facility): [facility] Under the care of (Name): Dr. Whittaker/Ania Ferrari Discharge Diagnosis: SBO (small bowel obstruction) (K56.609) resolved. Intractable nausea and vomiting (R11.2) resolved. 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 See new ostomy instruction with supply list. Hearing loss (H91.90) chronic stable. Ventral hernia without obstruction or gangrene (K43.9) chronic stable. Macrocytic anemia (D53.9) chronic stable. Oxygen dependent (Z99.81) chronic stable. Hypothyroidism (E03.9) chronic stable. DUTCH (obstructive sleep apnea) (G47.33) chronic stable. Pacemaker (Z95.0) chronic stable. CKD (chronic kidney disease) stage 3, GFR 30-59 ml/min (N18.3) chronic stable. Cor pulmonale (I27.81)chronic stable. Changed diuretic therapy to be more specific to treat this disease and reduce abdominal swelling to ease ostomy function. Medicare Certification Statement: I certify that [facility] senior care care is medically necessary on a continuing basis for any of the conditions for which she/he is receiving care during hospitalization. Notify PCP of admission and forward orders to primary provider for signature. Weight on admission and: Weekly Other Notification Orders: Call PCP immediately if patient develops dyspnea, chest pain/tightness or edema. House Bowel Program: Yes Additional Bowel Program Orders: If no BM after 2 days, nurse may give M.O.M. 30ml PO PRN and/or ducolax Supp 1 AK and/or MARYA 250mg P.O., and/or senna 1-2 tabs PO. On day 3 nurse may give re peat above order until residents constipation is resolved. Annual Influenza Vaccine (between Oct 07 and May 06): Yes Treatments & Other Orders: Instructions for Ostomy Application: Supplies: Sonja 1 inch Convex transparent 1-piece pouch (Ref #[id number]). Small Eakins Ring. No-Sting barrier wipe. Stoma powder. Heat pack (optional but VERY helpful). Application: 1. Apply Clip to bottom of bag. 2. Remove paper cover via tab from the convex portion of the wafer. 3. Stretch an Eakins ring around the edge of the wafer opening, avoiding overhandling. 4. Apply No-Sting barrier wipe to area around stoma that wafer will contact. 5. While area is still tacky, apply the wafer around the stoma, pressing in to the abdomen slightly. 6. Remove remaining paper from the outer edge of the wafer. 7. Apply heat pad or fingers to inside of convex wafer as well as around edge of wafer for minimum of 5 minutes (the more the better) to activate adhesives. Oxygen Orders: Continuous oxygen at 2-3L to keep oxygen greater than 90%. Lab Tests or X-ray Orders: Weekly routine labs or as per Primary provider. Medication Orders: PLEASE REFER TO THE DISCHARGE MEDICATION LIST. Insulin Orders?: No - Medications New Prescriptions: Chlorhexidine Gluconate [Peridex] 15 ml MM BID #30 mouthwash Furosemide 40 mg PO DAILY #30 tablet Spironolactone 25 mg PO DAILY #30 tablet - Diet Type: Geriatric Texture: D[facility] Liquids: [place] thick May have monthly special meal: Yes - Therapies | Activity Therapy: Evaluation | Treat if indicated: Speech, PT, OT Rehabilitation Potential: Maximize functional status, Return to independent living Activity: Activity as Tolerated Weight Bearing: Full Weight Assistance Devices: Walker"
--- NOTE | 2018-01-26 10:18 | DISCHARGE SUMMARY ---
"Discharge Summary Admit Date: 01/24/18 Discharge Date: 01/26/18 Discharging Provider: CHRISTIAN Blackburn Primary Care Provider: Dr. Whittaker/Ania Ferrari Code Status: Do Not Attempt Resuscitation Condition at Discharge: Good Discharge Disposition: SNF DC/Xfer Discharge Facility Name: [facility] - DIAGNOSES Admission Diagnoses: Intractable nausea and vomiting Small bowel obstruction Altered bowel elimination due to intestinal ostomy Hearing loss Ventral hernia without obstruction or gangrene Macrocytic anemia Hypothyroidism Oxygen dependent DUTCH (obstructive sleep apnea) Pacemaker Discharge Diagnoses with Status of Each Condition: SBO (small bowel obstruction) (K56.609) resolved. Intractable nausea and vomiting (R11.2) resolved. 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 See new ostomy instruction with supply list. Hearing loss (H91.90) chronic stable. Ventral hernia without obstruction or gangrene (K43.9) chronic stable. Macrocytic anemia (D53.9) chronic stable. Oxygen dependent (Z99.81) chronic stable. Hypothyroidism (E03.9) chronic stable. DUTCH (obstructive sleep apnea) (G47.33) chronic stable. Pacemaker (Z95.0) chronic stable. CKD (chronic kidney disease) stage 3, GFR 30-59 ml/min (N18.3) chronic stable. Cor pulmonale (I27.81)chronic stable. Changed diuretic therapy to be more specific to treat this disease and reduce abdominal swelling to ease ostomy function. - HPI History of Present Illness: Long Nuno is an ill appearing 88-year old male with a past medical history of charcot's foot of RLE, hypothyroidism, COPD, DUTCH-noncompliance, SSS requiring a permanent pacemaker last changed in October 2016, hyperlipidemia, hypertension, gout, anemia, depressive disorder, anxiety disorder, chronic hearing loss, CKD, diastolic CHF with severe right heart strain, cor pulmonale, muscle weakness, GERD, gastric ulcers, H. pylori, colon resection-status post RLQ mature ostomy, osteoporosis, and a stable ventral hernia. The patient was originally scheduled to see general surgery for this that was dated for 01/24/18, but cancelled by family due to the patient being at [facility] for ongoing physical therapy. The patient was transported via EMS from SNF for intractable nausea and vomiting that had been going on since dinner time last night. (about 6 hours). The patient's , Evelyn states that he had been eating well and was participating in physical therapy since being discharged on 01/15/18. Labs are unremarkable, besides his usual anemia with an H/H of 11.5/34.4, no WBC count with otherwise unremarkable labs. Imaging including an abdominal and pelvis CT confirmed a SBO in the left mid to lower abdomen and this goes with his symptoms of intractable N/V that started last evening. He has chronic abdominal edema, ascities, and complicating factors of a stable ventral hernia/chronic RLQ ostomy. On exam the patient is more confused and lethargic as compared to his last admission. His denies any reports of bleeding, a worsening cough, fever, chills, a new rash, a recent fall or chest pain leading up to this admission. I contacted general surgery, Dr. Hunter Cifuentes to discuss treatment of this acute SBO, who recommends a gastro-graffin challenge with serial imaging and will follow. He also informed me that with the patient not being a surgical candidate, he cannot offer any other solution for the ventral hernia that the patient had an outpatient appointment for, so he has signed off in that respect. The patient was admitted to inpatient and made NPO for the treatment of this acute SBO. The patient's fluid status is difficult to maintain as he has a very poor functioning heart and CKD. - CONSULTS | PROCEDURES Consultations: General surgery consult via phone-Dr. Hunter Cifuentes - HOSPITAL COURSE Hospital Course: The patient was found to have a SBO not in the areas near his stable ventral hernia. A general surgery consult was made who recommended a Gastro-graffin challenge with serial imaging. The patient's symptoms subsided and imaging confirmed a resolution of the SBO. The patient did not require an NG tube. Due to his poor heart function, his length of stay was longer than expected. He underwent a PT evaluation to ensure that he is still an appropriate rehab candidate. He was in stable condition and was transported back to [facility]. and daughter were present for my discharge exam and were given an updated med list for their use after discharge from SNF. - ALLERGIES Allergies/Adverse Reactions: Allergies Allergy/AdvReac Type Severity Reaction Status Date / Time No Known Drug Allergies Allergy Verified 01/24/18 00:54 - MEDICATIONS Home Medications: Ambulatory Orders Medication Instructions Recorded Confirmed Simvastatin 20 mg PO QPM 06/06/17 01/24/18 Allopurinol [Zyloprim] 100 mg PO DAILY #30 tablet 01/15/18 01/24/18 Citalopram [CeleXA] 10 mg PO DAILY #30 tablet 01/15/18 01/24/18 Levothyroxine Sodium 150 mcg PO QDAC #30 01/15/18 01/24/18 Nystatin [Nystop] 1 applic TOP BID #1 bottle 01/15/18 01/24/18 Polyethylene Glycol 3350 [Miralax] 17 gm PO DAILY #30 packet 01/15/18 01/24/18 Saccharomyces Boulardii [Florastor] 250 mg PO BID #60 capsule 01/15/18 01/24/18 Ferrous Gluconate [Iron] 240 mg PO DAILYWM 01/24/18 01/24/18 Ipratropium/Albuterol [Duoneb] 3 ml INH RTQID 01/24/18 01/24/18 Ondansetron HCl [Zofran] 4 mg PO Q4H PRN 01/24/18 01/24/18 Chlorhexidine Gluconate [Peridex] 15 ml MM BID #30 mouthwash 01/26/18 Furosemide 40 mg PO DAILY #30 tablet 01/26/18 Spironolactone 25 mg PO DAILY #30 tablet 01/26/18 - PHYSICAL EXAM AT DISCHARGE General Appearance: positive: No acute distress, Alert Eyes Bilateral: positive: PERRL ENT: positive: Pharynx nml, No signs of dehydration Neck: positive: Thyroid nml, No JVD Respiratory: positive: Chest non-tender, Rhonchi (chronic crackles) Cardiovascular: positive: No gallop, Irregularly irregular, Systolic murmur, Decreased pulse(s) Peripheral Pulses: positive: 1+ Abdomen: positive: Non-tender, Nml bowel sounds, Hepatomegaly, Mass (stable ventral hernia), Other (obese, soft, mature ostomy) Back: positive: Nml inspection Skin: positive: No rash, Warm, Dry, Other (bronze) Extremities: positive: Full ROM Neurologic/Psychiatric: positive: Disoriented to place, Disoriented to time, Weakness, Sensory loss, Slurred/abnml speech, Depressed mood/affect Reflexes: Bicep (R): 3+, Bicep (L): 3+ - LABS Result Diagrams: 01/26/18 08:22 01/26/18 08:22 - SEPSIS Current Stage of Sepsis: Ruled out - TIME SPENT Time Spent in Discharge (Minutes): 60"
[2018-01-26 15:40] VITALS: BP 138/63
== END 2018-01-26 15:25 | DRG 389 ==
LOC: EDBD → EDUNIT# 00:42 → ED 00:42 → MS2 07:27
PROVIDERS: ADMIT Nurse Practitioner; ATTEND Nurse Practitioner
DX: K56.609 Unspecified intestinal obstruction, unspecified as to partial versus complete obstruction (principal); I11.0 Hypertensive heart disease with heart failure; I50.9 Heart failure, unspecified; E78.00 Pure hypercholesterolemia, unspecified; I13.0 Hypertensive heart and chronic kidney disease with heart failure and stage 1 through stage 4 chronic kidney disease, or unspecified chronic kidney disease; I50.30 Unspecified diastolic (congestive) heart failure; G47.30 Sleep apnea, unspecified; R18.8 Other ascites; K43.5 Parastomal hernia without obstruction or gangrene; J44.9 Chronic obstructive pulmonary disease, unspecified; N18.3 Chronic kidney disease, stage 3 (moderate); E03.9 Hypothyroidism, unspecified; N40.1 Benign prostatic hyperplasia with lower urinary tract symptoms; N39.498 Other specified urinary incontinence; R35.0 Frequency of micturition; R35.1 Nocturia; F32.9 Major depressive disorder, single episode, unspecified; F41.9 Anxiety disorder, unspecified; J32.9 Chronic sinusitis, unspecified; H54.7 Unspecified visual loss; R53.83 Other fatigue; H90.6 Mixed conductive and sensorineural hearing loss, bilateral; M81.0 Age-related osteoporosis without current pathological fracture; D53.9 Nutritional anemia, unspecified; G47.33 Obstructive sleep apnea (adult) (pediatric); Z99.81 Dependence on supplemental oxygen; I27.81 Cor pulmonale (chronic); E78.5 Hyperlipidemia, unspecified; M10.9 Gout, unspecified; I49.5 Sick sinus syndrome; K21.9 Gastro-esophageal reflux disease without esophagitis; I73.9 Peripheral vascular disease, unspecified; F03.90 Unspecified dementia, unspecified severity, without behavioral disturbance, psychotic disturbance, mood disturbance, and anxiety; G62.9 Polyneuropathy, unspecified; K52.9 Noninfective gastroenteritis and colitis, unspecified; M19.90 Unspecified osteoarthritis, unspecified site; G89.29 Other chronic pain; M54.9 Dorsalgia, unspecified; Z51.5 Encounter for palliative care; Z93.3 Colostomy status; Z66 Do not resuscitate; I07.1 Rheumatic tricuspid insufficiency; Z96.653 Presence of artificial knee joint, bilateral; Z79.51 Long term (current) use of inhaled steroids; Z79.899 Other long term (current) drug therapy; Z86.010 Personal history of colon polyps; Z91.19 Patient's noncompliance with other medical treatment and regimen; Z87.01 Personal history of pneumonia (recurrent); Z95.0 Presence of cardiac pacemaker; Z87.11 Personal history of peptic ulcer disease
CPT/HCPCS: 36415; 74018; 74177; 80048; 80053; 83605; 83690; 83735; 83880; 84100; 85025; 94640; 96374; 99233; 99283; 99284

== ENCOUNTER 2018-01-26 17:50 | Outpatient (CLI) | payer MEDICARE ==
[2018-01-26 19:42] LABS: CALCIUM 9.6 mg/dL (8.5-10.3)
== END 2018-01-26 17:51 | disposition home or self-care (01) ==
LOC: LAB.R 17:50
DX: I50.23 Acute on chronic systolic (congestive) heart failure (principal); D53.9 Nutritional anemia, unspecified
CPT/HCPCS: 80048

== ENCOUNTER 2018-01-31 08:00 | Outpatient (CLI) | payer MEDICARE ==
[2018-01-31 14:57] LABS: CALCIUM 8.8 mg/dL (8.5-10.3); CREATININE 1.6 mg/dL (0.6-1.2)
== END 2018-01-31 23:59 | disposition home or self-care (01) ==
LOC: LAB.R 08:00
DX: N18.9 Chronic kidney disease, unspecified (principal)
CPT/HCPCS: 80048

== ENCOUNTER 2018-02-07 08:00 | Outpatient (CLI) | payer MEDICARE ==
[2018-02-07 18:11] LABS: CALCIUM 8.7 mg/dL (8.5-10.3); CREATININE 1.5 mg/dL (0.6-1.2)
== END 2018-02-07 23:59 | disposition home or self-care (01) ==
LOC: LAB.R 08:00
DX: I50.9 Heart failure, unspecified (principal)
CPT/HCPCS: 80048

== ENCOUNTER 2018-02-27 08:00 | Outpatient (CLI) | payer MEDICARE ==
[2018-02-27 20:20] LABS: BASOPHILS % (AUTO) 0.4 %; EOSINOPHILS # (AUTO) 0.2 10^3/uL (0.0-0.7); HGB - HEMOGLOBIN 11.7 g/dL (14.0-18.0); LYMPHOCYTES # (AUTO) 1.7 10^3/uL (1.5-3.5); LYMPHOCYTES % (AUTO) 28.7 %; MEAN CORPUSCULAR HEMOGLOBIN 32.6 pg (27.0-31.0); MEAN CORPUSCULAR HGB CONC 31.7 g/dL (32.0-36.0); MEAN CORPUSCULAR VOLUME 102.9 fL (80.0-94.0); MEAN PLATELET VOLUME 8.9 fL (7.4-11.4); MONOCYTES # (AUTO) 0.4 10^3/uL (0.0-1.0); NEUTROPHILS # (AUTO) 3.6 10^3/uL (1.5-6.6); NEUTROPHILS % (AUTO) 60.9 %; PLT - PLATELET COUNT 153 10^3/uL (130-450); RED BLOOD COUNT 3.59 10^6/uL (4.70-6.10); RED CELL DISTRIBUTION WIDTH 16.9 % (12.0-15.0); WHITE BLOOD COUNT 5.9 x10^3/uL (4.8-10.8)
[2018-02-27 20:31] LABS: ALBUMIN 3.2 g/dL (3.2-5.5); ALBUMIN/GLOBULIN RATIO 0.7 (1.0-2.2); BILIRUBIN,TOTAL 0.9 mg/dL (0.2-1.0); CALCIUM 9.8 mg/dL (8.5-10.3); CREATININE 1.5 mg/dL (0.6-1.2)
== END 2018-02-27 23:59 | disposition home or self-care (01) ==
LOC: LAB.R 08:00
DX: I50.23 Acute on chronic systolic (congestive) heart failure (principal); N18.3 Chronic kidney disease, stage 3 (moderate)
CPT/HCPCS: 80053; 85025

== ENCOUNTER 2018-03-15 14:45 | Outpatient (CLI) | payer MEDICARE ==
[2018-03-15 15:21] LABS: BASOPHILS % (AUTO) 0.4 %; EOSINOPHILS # (AUTO) 0.1 10^3/uL (0.0-0.7); EOSINOPHILS % (AUTO) 1.4 %; HGB - HEMOGLOBIN 12.9 g/dL (14.0-18.0); LYMPHOCYTES # (AUTO) 2.1 10^3/uL (1.5-3.5); LYMPHOCYTES % (AUTO) 24.1 %; MEAN CORPUSCULAR HEMOGLOBIN 33.5 pg (27.0-31.0); MEAN CORPUSCULAR HGB CONC 33.6 g/dL (32.0-36.0); MEAN CORPUSCULAR VOLUME 99.6 fL (80.0-94.0); MEAN PLATELET VOLUME 7.8 fL (7.4-11.4); MONOCYTES # (AUTO) 1.2 10^3/uL (0.0-1.0); MONOCYTES % (AUTO) 13.5 %; NEUTROPHILS # (AUTO) 5.3 10^3/uL (1.5-6.6); NEUTROPHILS % (AUTO) 60.6 %; PLT - PLATELET COUNT 119 10^3/uL (130-450); RED BLOOD COUNT 3.84 10^6/uL (4.70-6.10); RED CELL DISTRIBUTION WIDTH 17.5 % (12.0-15.0); WHITE BLOOD COUNT 8.8 x10^3/uL (4.8-10.8)
[2018-03-15 15:30] LABS: CALCIUM 10.5 mg/dL (8.5-10.3); CREATININE 1.4 mg/dL (0.6-1.2)
== END 2018-03-15 23:59 | disposition home or self-care (01) ==
LOC: LAB.R 14:45
DX: I13.10 Hypertensive heart and chronic kidney disease without heart failure, with stage 1 through stage 4 chronic kidney disease, or unspecified chronic kidney disease (principal); I50.23 Acute on chronic systolic (congestive) heart failure
CPT/HCPCS: 80048; 85025